=== PATIENT | female | born 1975 | race Caucasian/White ===

== ENCOUNTER 2024-05-10 11:26 | Inpatient (IN) | payer OTHER, SELFPAY ==
[2024-05-10] VITALS (98 sets, daily range): BP systolic 92–132; BP diastolic 51–77; PULSE 81–96; TEMP 36.5–37.1; O2SAT 92–100; BMI 36.6
--- NOTE | 2024-05-10 11:41 | ECG_ITS ---
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
--- NOTE | 2024-05-10 11:41 | XR_ITS ---
The [address] [address] Patient Name: SOBIA WILLIS MRN: [id number] date: 1975 Sex: F Assigned Patient Location: ER Current Patient Location: ER Accession/Order Number: [id number] Exam Date: 05/10/2024 12:37 Report Date: 05/10/2024 12:49 At the request of: ESTEBAN MARX Procedure: XR chest 1V EXAMINATION: XR chest 1V HISTORY: weak COMPARISON: XR chest 1117 FINDINGS: LUNGS: No significant pulmonary parenchymal abnormalities. VASCULATURE: No increased pulmonary vasculature. PLEURA: No pneumothorax, effusion, or pleural thickening. CARDIAC: No cardiomegaly or cardiac silhouette abnormality. MEDIASTINUM: No visible mass or adenopathy. BONES: No fracture or visible bone lesion. OTHER: Negative. XR/XR chest 1V IMPRESSION: 1. No acute cardiopulmonary process or suspicious findings. Electronically authenticated by: JOSEFINA WHITMAN Date: 05/10/2024 12:49
--- NOTE | 2024-05-10 11:42 | CT_ITS ---
[address] [address] Patient Name: SOBIA WILLIS MRN: [id number] date: 1975 Sex: F Assigned Patient Location: ER Current Patient Location: Accession/Order Number: [id number] Exam Date: 05/10/2024 12:30 Report Date: 05/10/2024 13:01 At the request of: ESTEBAN MARX Procedure: CT abdomen pelvis wo con EXAMINATION: CT abdomen pelvis wo con HISTORY: Jaundiced, abdominal distention COMPARISON: CT abdomen pelvis 01/03/2020 TECHNIQUE: Axial, Coronal, and Sagittal images were obtained without and/or with IV contrast as indicated by examination type. Dose reduction techniques were achieved by using automated exposure control and/or adjustment of mA and/or kV according to patient size and/or use of iterative reconstruction technique. FINDINGS: LUNG BASES: No visible pulmonary or pleural disease. LIVER: Heterogeneous subtle variation in density, predominantly involving the right lobe. Areas of nodular liver margins. Free fluid anterior, lateral, and along the undersurface of the liver. BILIARY: No dilatation or calcification. PANCREAS: No lesion, fluid collection, or abnormal duct dilatation. SPLEEN: Small amount of free fluid adjacent the spleen. No enlargement or focal lesion. ADRENALS: No mass or enlargement. KIDNEYS: No mass, obstruction, or calcification. BOWEL/MESENTERY: Numerous small diverticula involving the mid to distal colon. Slight wall thickening of hepatic flexure of the colon. No obstruction. Unremarkable stomach and small bowel. AORTA/VASCULAR: No aneurysm or dissection. RETROPERITONEUM: No mass or adenopathy. LYMPH NODES: No adenopathy. URINARY BLADDER: No visible focal wall thickening, lesion, or calculus. PELVIC ORGANS: No visible mass. Pelvic organs appropriate for patient age. ABDOMINAL WALL: Subcutaneous edema. No mass or hernia. BONES: No bony lesion or fracture. OTHER: Negative. CT/CT abdomen pelvis wo con IMPRESSION: 1. Moderate abdominal ascites of uncertain etiology. 2. Heterogeneous density of the liver predominantly involving the right hepatic lobe which is not well seen on today's noncontrast study. This may be secondary to cirrhotic changes. CT imaging of the liver without and with IV contrast is recommended for further evaluation (CT abdomen without and with IV contrast). 3. Colonic diverticulosis. Questionable mild wall thickening of the hepatic flexure of the colon; mild colitis versus secondary to adjacent fluid. Electronically authenticated by: JOSEFINA WHITMAN Date: 05/10/2024 13:01
--- NOTE | 2024-05-10 11:43 | ED_ITS ---
HPI HPI - General Adult General Chief complaint: Fall Stated complaint: WEAKNESS Time Seen by Provider: 05/10/24 11:41 Source: patient and medical record Mode of arrival: ambulance Limitations: no limitations History of Present Illness HPI narrative: 48-year-old female presents because she feels weak. She states she fell off the couch today because she was so weak and she did not hurt herself. She has noticed that her legs have become swollen and her abdomen bigger than typical and she states she noticed today that her skin was turning yellow. She lives with her and her adult son. She used to drink alcohol heavily, quit 4 years ago, none since. She also quit smoking 19 years ago. She has never had any liver issues. Related Data Home Medications ?Medication ?Instructions ?Recorded ?Confirmed No Known Home Medications 05/10/24 05/10/24 Allergies Allergy/AdvReac Type Severity Reaction Status Date / Time No Known Drug Allergies Allergy Verified 05/10/24 11:43 Opioid HPI Opioid Management Most Recent Opioid Data: No Data to Display Review of Systems ROS Narrative A ten point review of systems is negative except as noted above. PFSH PFSH Social History Little interest or pleasure in doing things: not at all Feeling down, depressed, or hopeless: not at all Exam Narrative Exam Narrative: Nurses note and vital signs reviewed and patient is not hypoxic. General: The patient appears in no acute respiratory distress Skin: Warm, dry, no pallor noted. There is no rash noted. Skin is quite jaundiced. Head: Normocephalic, atraumatic Eye: Sclera are anicteric Ears, Nose, Mouth, and Throat: oral mucosa is slightly dry. Nares patent. Cardiovascular: Regular Rate and Rhythm Respiratory: Patient is in no distress, no accessory muscle use, lungs are clear to auscultation, no wheezing, rales or rhonchi GI: Abdomen is distended with positive fluid wave Musculoskeletal: Bilateral lower extremity edema present, symmetric Neurological: Awake alert and oriented Psychiatric: Cooperative Constitutional Vital Signs, click to edit/add: Last Vital Signs Temp 98.3 F 05/10/24 14:30 Pulse 91 H 05/10/24 14:30 Resp 18 05/10/24 14:30 BP 121/60 05/10/24 14:30 Pulse Ox 99 05/10/24 13:50 O2 Del Method Room Air 05/10/24 11:34 Course Vital Signs Vital signs: Vital Signs Pulse Rate 85 05/10/24 11:31 Pulse Oximetry 99 05/10/24 11:31 Temperature 98.3 F 05/10/24 14:30 Pulse Rate 91 H 05/10/24 14:30 Respiratory Rate 18 05/10/24 14:30 Blood Pressure 121/60 05/10/24 14:30 Pulse Oximetry 99 05/10/24 13:50 Oxygen Delivery Method Room Air 05/10/24 11:34 Medical Decision Making MDM Narrative Medical decision making narrative: The patient presents with acute liver failure as well as anemia. No blood was found in her stool and blood transfusion is ordered. CAT scan is consistent with cirrhosis and ascites. I spoken to Dr. Mena and we have agreed that the patient will be transferred to tertiary care facility for appropriate care with gastroenterology and possibly sales service technician. I spoke to Dr. Burgess at [facility] and he recommends transfer to [facility] for evaluation for liver transplant. I have spoken to the hospitalist at the [facility] who has accepted the patient. She is hemodynamically stable and agreeable for transfer. Here she was transfused blood and given IV Protonix and IV vitamin K. Differential Diagnosis Differential Diagnosis: Liver failure, cirrhosis, hepatitis, renal failure, anemia, GI bleed Lab Data Lab results reviewed: Yes I reviewed the patient's lab results Labs: Lab Results 05/10/24 05/10/24 05/10/24 Range/Units 11:43 12:12 12:27 WBC 17.7 H (4.0-11.0) 10^3/uL RBC 1.46 L (4.20-5.40) 10^6/uL Hgb 5.7 L* (12.0-16.0) g/dL Hct 17.0 L* (36.0-48.0) % MCV 116.4 H (81.0-99.0) fL MCH 39.0 H (26.7-34.0) pg MCHC 33.5 (29.9-35.2) g/dL RDW 17.5 H (11.0-15.0) % Plt Count 183 (150-450) 10^3/uL MPV 11.1 (9.5-13.5) fL Neut % (Auto) 77.6 H (43.0-75.0) % Lymph % (Auto) 16.3 L (20.5-60.0) % [place] % (Auto) 4.0 (1.7-12.0) % Eos % (Auto) 0.2 L (0.9-7.0) % Baso % (Auto) 0.1 L (0.2-2.0) % Neut # (Auto) 13.7 H (1.4-6.5) 10^3/uL Lymph # (Auto) 2.9 (1.2-3.8) 10^3/uL [place] # (Auto) 0.7 (0.3-0.8) 10^3/uL Eos # (Auto) 0.0 (0.0-0.7) 10^3/uL Baso # (Auto) 0.0 (0.0-0.1) 10^3/uL Abs Immat Gran (auto) 0.32 H (0.00-0.03) 10^3/uL Imm/Tot Granulo (auto) 1.8 H (0.0-0.5) % PT 29.8 H (9.0-11.6) sec INR 3.15 APTT 21.8 L (22.3-36.2) sec Sodium 131 L (136-145) mmol/L Potassium 5.0 (3.5-5.1) mmol/L Chloride 88 L (98-107) mmol/L Carbon Dioxide 23.2 (21.0-32.0) mmol/L Anion Gap 24.8 BUN 92.0 H* (7.0-18.0) mg/dL Creatinine 2.48 H (0.55-1.02) mg/dL Est GFR ( Amer) 25 L (>=60) Est GFR (Non-Af Amer) 21 L (>=60) BUN/Creatinine Ratio 37.1 Glucose 103 (74-106) mg/dL Calcium 13.4 H* (8.5-10.1) mg/dL Total Bilirubin 20.5 H* (0.2-1.0) mg/dL Direct Bilirubin 15.7 H* (0.0-0.2) mg/dL AST 512 H* (15-37) U/L ALT 184 H (14-59) U/L Alkaline Phosphatase 189 H (46-116) U/L Ammonia (11-32) umol/L Troponin I High Sens 56.4 H* (4.0-51.3) pg/mL Total Protein 6.0 L (6.4-8.2) g/dL Albumin 2.5 L (3.4-5.0) g/dL Globulin 3.5 g/dL Albumin/Globulin Ratio 0.7 Amylase 43 (25-115) U/L Lipase 199.0 H (16.0-77.0) U/L Serum HCG, Qual Negative (NEGATIVE) Urine Color (YELLOW) Urine Clarity (CLEAR) Urine pH (5.0-9.0) Ur Specific [place] (1.005-1.025) Urine Protein (NEG/TRACE) mg/dL Urine Glucose (UA) (NEGATIVE) mg/dL Urine Ketones (NEGATIVE) mg/dL Urine Occult Blood (NEGATIVE) Urine Nitrite (NEGATIVE) Urine Bilirubin (NEGATIVE) Urine Urobilinogen (0.2-1.0) EU/dL Ur Leukocyte Esterase (NEGATIVE) Urine RBC (0-2) #/HPF Urine WBC (NONE SEEN) #/HPF Ur Squamous Epith Cells (NONE/RARE) #/LPF Ur Transition Epith Cell (NONE SEEN) #/LPF Urine Bacteria (NONE SEEN) #/HPF Urine Casts (NONE SEEN) #/LPF Hyaline Casts Urine Mucus (NONE SEEN) Ur Culture Indicated? Stool Occult Blood Negative Acetaminophen <2.0 L (10.0-30.0) ug/mL Ethanol Quant <3 mg/dL Blood Type A Negative Antibody Screen Negative Crossmatch See Detail 05/10/24 05/10/24 Range/Units 13:10 14:14 WBC (4.0-11.0) 10^3/uL RBC (4.20-5.40) 10^6/uL Hgb (12.0-16.0) g/dL Hct (36.0-48.0) % MCV (81.0-99.0) fL MCH (26.7-34.0) pg MCHC (29.9-35.2) g/dL RDW (11.0-15.0) % Plt Count (150-450) 10^3/uL MPV (9.5-13.5) fL Neut % (Auto) (43.0-75.0) % Lymph % (Auto) (20.5-60.0) % [place] % (Auto) (1.7-12.0) % Eos % (Auto) (0.9-7.0) % Baso % (Auto) (0.2-2.0) % Neut # (Auto) (1.4-6.5) 10^3/uL Lymph # (Auto) (1.2-3.8) 10^3/uL [place] # (Auto) (0.3-0.8) 10^3/uL Eos # (Auto) (0.0-0.7) 10^3/uL Baso # (Auto) (0.0-0.1) 10^3/uL Abs Immat Gran (auto) (0.00-0.03) 10^3/uL Imm/Tot Granulo (auto) (0.0-0.5) % PT (9.0-11.6) sec INR APTT (22.3-36.2) sec Sodium (136-145) mmol/L Potassium (3.5-5.1) mmol/L Chloride (98-107) mmol/L Carbon Dioxide (21.0-32.0) mmol/L Anion Gap BUN (7.0-18.0) mg/dL Creatinine (0.55-1.02) mg/dL Est GFR ( Amer) (>=60) Est GFR (Non-Af Amer) (>=60) BUN/Creatinine Ratio Glucose (74-106) mg/dL Calcium (8.5-10.1) mg/dL Total Bilirubin (0.2-1.0) mg/dL Direct Bilirubin (0.0-0.2) mg/dL AST (15-37) U/L ALT (14-59) U/L Alkaline Phosphatase (46-116) U/L Ammonia 20 (11-32) umol/L Troponin I High Sens (4.0-51.3) pg/mL Total Protein (6.4-8.2) g/dL Albumin (3.4-5.0) g/dL Globulin g/dL Albumin/Globulin Ratio Amylase (25-115) U/L Lipase (16.0-77.0) U/L Serum HCG, Qual (NEGATIVE) Urine Color Dk. orange (YELLOW) Urine Clarity Clear (CLEAR) Urine pH Color interference A (5.0-9.0) Ur Specific [place] 1.025 (1.005-1.025) Urine Protein Color interference A (NEG/TRACE) mg/dL Urine Glucose (UA) Color interference A (NEGATIVE) mg/dL Urine Ketones Color interference A (NEGATIVE) mg/dL Urine Occult Blood Color interference A (NEGATIVE) Urine Nitrite Color interference A (NEGATIVE) Urine Bilirubin Color interference A (NEGATIVE) Urine Urobilinogen Color interference A (0.2-1.0) EU/dL Ur Leukocyte Esterase Color interference A (NEGATIVE) Urine RBC 0-2 (0-2) #/HPF Urine WBC 10-20 A (NONE SEEN) #/HPF Ur Squamous Epith Cells Few A (NONE/RARE) #/LPF Ur Transition Epith Cell Few A (NONE SEEN) #/LPF Urine Bacteria Large A (NONE SEEN) #/HPF Urine Casts Seen A (NONE SEEN) #/LPF Hyaline Casts Rare Urine Mucus None seen (NONE SEEN) Ur Culture Indicated? Yes Stool Occult Blood Acetaminophen (10.0-30.0) ug/mL Ethanol Quant mg/dL Blood Type Antibody Screen Crossmatch Imaging Data CT scan - abdomen: Radiologist's impression: ITS Impressions Chest X-Ray 05/10/24 11:41 IMPRESSION: 1. No acute cardiopulmonary process or suspicious findings. Electronically authenticated by: JOSEFINA WHITMAN Date: 05/10/2024 12:49 Abdomen/Pelvis CT 05/10/24 11:42 IMPRESSION: 1. Moderate abdominal ascites of uncertain etiology. 2. Heterogeneous density of the liver predominantly involving the right hepatic lobe which is not well seen on today's noncontrast study. This may be secondary to cirrhotic changes. CT imaging of the liver without and with IV contrast is recommended for further evaluation (CT abdomen without and with IV contrast). 3. Colonic diverticulosis. Questionable mild wall thickening of the hepatic flexure of the colon; mild colitis versus secondary to adjacent fluid. Electronically authenticated by: JOSEFINA WHITMAN Date: 05/10/2024 13:01 ECG Data Attestation: I personally reviewed and interpreted this ECG as follows: (EKG on my interpretation shows normal sinus rhythm with a rate of 88 and no acute change.) Critical Care Time Critical Care Time Critical Care Time: Yes Total Critical Care Time: 95 Attestation: Due to the high probability of sudden and clinically significant deterioration in the patient's condition he/she required the highest level of my preparedness to intervene urgently I provided critical care time including documentation time, medication orders and management, reevaluation, vital sign assessment, ordering and reviewing of lab tests, ordering and reviewing of x-ray studies, and admission orders. Aggregate critical care time is 95 minutes including only time during which I was engaged in work directly related to his/her care and did not include time spent treating other patients simultaneously. Discharge Plan Discharge Chief Complaint: Fall Clinical Impression: Acute liver failure, Acute kidney injury, Anemia Patient Disposition: [facility] Time of Disposition Decision: 13:07 Discharge Location: [facility] Condition: Fair Mode of Transportation: EMS
[2024-05-10 12:06] LABS: Basophils Percent Auto 0.1 % (0.2-2.0); Eosinophils Percent Auto 0.2 % (0.9-7.0); Immature Granulocytes Abs Auto 0.32 10^3/uL (0.00-0.03); Immature Granulocytes Pct Auto 1.8 % (0.0-0.5); Lymphocytes Absolute Auto 2.9 10^3/uL (1.2-3.8); Lymphocytes Percent Auto 16.3 % (20.5-60.0); Mean Corpuscular HGB Conc 33.5 g/dL (29.9-35.2); Mean Corpuscular Volume 116.4 fL (81.0-99.0); Mean Platelet Volume 11.1 fL (9.5-13.5); Monocytes Absolute Auto 0.7 10^3/uL (0.3-0.8); Neutrophils Absolute Auto 13.7 10^3/uL (1.4-6.5); Neutrophils Percent Auto 77.6 % (43.0-75.0); Platelet Count 183 10^3/uL (150-450); Red Cell Distribution Width 17.5 % (11.0-15.0); White Blood Count 17.7 10^3/uL (4.0-11.0)
[2024-05-10 12:10] LABS: Hemoglobin 5.7 g/dL (12.0-16.0)
[2024-05-10 12:16] LABS: Red Blood Count 1.46 10^6/uL (4.20-5.40)
[2024-05-10 12:21] LABS: Alanine Aminotransferase 184 U/L (14-59); Albumin Globulin Ratio 0.7; Albumin Level 2.5 g/dL (3.4-5.0); Alkaline Phosphatase 189 U/L (46-116); Amylase 43 U/L (25-115); Globulin 3.5 g/dL; HCG Qualitative NEGATIVE (NEGATIVE); Internal Control Within Normal Limits
[2024-05-10 12:29] LABS: Anion Gap 24.8; BUN Creatinine Ratio 37.1; Carbon Dioxide 23.2 mmol/L (21.0-32.0); Chloride 88 mmol/L (98-107); Estimated GFR (African America 25 (>=60); Estimated GFR (Non-African Ame 21 (>=60); Glucose 103 mg/dL (74-106); Sodium 131 mmol/L (136-145)
[2024-05-10 12:30] LABS: Aspartate Amino Transferase 512 U/L (15-37); Bilirubin Direct 15.7 mg/dL (0.0-0.2); Bilirubin Total 20.5 mg/dL (0.2-1.0); Troponin I High Sensitivity 56.4 pg/mL (4.0-51.3)
[2024-05-10 12:31] LABS: Calcium 13.4 mg/dL (8.5-10.1)
[2024-05-10 12:32] LABS: INR 3.15; Partial Thromboplastin Time 21.8 sec (22.3-36.2); Prothrombin Time 29.8 sec (9.0-11.6)
[2024-05-10 12:37] LABS: Internal Control Within Normal Limits; Occult Blood Negative
[2024-05-10 13:26] LABS: Ammonia 20 umol/L (11-32)
[2024-05-10] MEDS: PHYTONADIONE (VIT K1) 5 MG in 0.9 % SODIUM CHLORIDE 50 ML 202 MG IV (13:48)
[2024-05-10 14:01] LABS: Ethanol <3 mg/dL
[2024-05-10 14:05] LABS: Acetaminophen <2.0 ug/mL (10.0-30.0)
[2024-05-10 14:25] LABS: Clarity Urine CLEAR (CLEAR); Color Urine DK. ORANGE (YELLOW); Specific Gravity Urine 1.025 (1.005-1.025)
[2024-05-10 14:29] LABS: Bilirubin Urine COLOR INTERFERENCE (NEGATIVE); Blood Urine COLOR INTERFERENCE (NEGATIVE); Glucose Urine UA COLOR INTERFERENCE mg/dL (NEGATIVE); Ketones Urine COLOR INTERFERENCE mg/dL (NEGATIVE); Protein Urine COLOR INTERFERENCE mg/dL (NEG/TRACE); pH Urine COLOR INTERFERENCE (5.0-9.0)
[2024-05-10 14:30] LABS: Leukocyte Esterase Urine COLOR INTERFERENCE (NEGATIVE); Nitrite Urine COLOR INTERFERENCE (NEGATIVE); Urobilinogen Urine COLOR INTERFERENCE EU/dL (0.2-1.0)
[2024-05-10] MEDS: PANTOPRAZOLE SODIUM 40 MG VIAL IV (14:33)
[2024-05-10 14:35] LABS: Bacteria Urine LARGE #/HPF (NONE SEEN); Mucus Urine NONE SEEN (NONE SEEN); RBC Urine 0-2 #/HPF (0-2); Squamous Epithelial Cell Urine FEW #/LPF (NONE/RARE); Transitional Epi Cells Urine FEW #/LPF (NONE SEEN)
[2024-05-10 14:36] LABS: Cast Seen? SEEN #/LPF (NONE SEEN); Hyaline Casts Urine RARE; Urine Culture Indicated YES
[2024-05-10 14:38] LABS: Amphetamine Screen Urine NEGATIVE (NEGATIVE); Benzodiazepines Screen Urine NEGATIVE (NEGATIVE); Cannabinoid Screen Urine NEGATIVE (NEGATIVE); Cocaine Screen Urine NEGATIVE (NEGATIVE); Methamphetamines Screen Urine NEGATIVE (NEGATIVE); Opiate Screen Urine NEGATIVE (NEGATIVE); Phencyclidine Screen Urine NEGATIVE (NEGATIVE)
[2024-05-10 14:39] LABS: Barbiturates Screen Urine NEGATIVE (NEGATIVE); Buprenorphine Screen Urine NEGATIVE (NEGATIVE); Methadone Screen Urine NEGATIVE (NEGATIVE); Oxycodone Screen Urine NEGATIVE (NEGATIVE); Tricyclic Antidepressant Urine NEGATIVE (NEGATIVE)
[2024-05-10] MEDS: MORPHINE SULFATE 4 MG/ML VIAL IV (18:53)
[2024-05-11] VITALS (18 sets, daily range): BP systolic 88–109; BP diastolic 46–66; PULSE 87–97; TEMP 36.9–37; O2SAT 95–97
[2024-05-11] MEDS: LACTULOSE 10 GM/15 ML (237ML) SOLUTION 20 GM PO (05:53)
[2024-05-11 06:09] LABS: HBsAg Screen Negative (Negative); HCV Ab Non Reactive (Non Reactive); Hep A Ab, IgM Negative (Negative); Hep B Core Ab, IgM Negative (Negative)
[2024-05-11 06:13] LABS: Basophils Percent Auto 0.2 % (0.2-2.0); Eosinophils Absolute Auto 0.1 10^3/uL (0.0-0.7); Eosinophils Percent Auto 0.3 % (0.9-7.0); Immature Granulocytes Abs Auto 0.35 10^3/uL (0.00-0.03); Lymphocytes Percent Auto 17.6 % (20.5-60.0); Mean Corpuscular HGB Conc 33.7 g/dL (29.9-35.2); Mean Corpuscular Hemoglobin 34.7 pg (26.7-34.0); Mean Platelet Volume 10.7 fL (9.5-13.5); Monocytes Absolute Auto 0.8 10^3/uL (0.3-0.8); Monocytes Percent Auto 4.7 % (1.7-12.0); Neutrophils Absolute Auto 12.9 10^3/uL (1.4-6.5); Neutrophils Percent Auto 75.2 % (43.0-75.0); Platelet Count 155 10^3/uL (150-450); Red Blood Count 1.99 10^6/uL (4.20-5.40); White Blood Count 17.2 10^3/uL (4.0-11.0)
[2024-05-11 06:23] LABS: Hematocrit 20.5 % (36.0-48.0); Hemoglobin 6.9 g/dL (12.0-16.0)
[2024-05-11 06:28] LABS: INR 2.19; Partial Thromboplastin Time 28.6 sec (22.3-36.2); Prothrombin Time 21.5 sec (9.0-11.6)
[2024-05-11 06:40] LABS: Alanine Aminotransferase 197 U/L (14-59); Albumin Globulin Ratio 0.6; Albumin Level 2.2 g/dL (3.4-5.0); Alkaline Phosphatase 170 U/L (46-116); Anion Gap 17.8; Aspartate Amino Transferase 482 U/L (15-37); BUN Creatinine Ratio 39.5; Calcium 12.2 mg/dL (8.5-10.1); Carbon Dioxide 30.3 mmol/L (21.0-32.0); Chloride 87 mmol/L (98-107); Estimated GFR (African America 25 (>=60); Estimated GFR (Non-African Ame 20 (>=60); Globulin 3.4 g/dL; Glucose 97 mg/dL (74-106); Potassium 5.1 mmol/L (3.5-5.1); Sodium 130 mmol/L (136-145); Total Protein 5.6 g/dL (6.4-8.2)
[2024-05-11 06:45] LABS: Bilirubin Total 21.2 mg/dL (0.2-1.0)
--- NOTE | 2024-05-11 08:57 | P.HP_ITS ---
HPI H&P: HPI History of Present Illness Chief complaint: WEAKNESS Acute Liver Failure LEAH Anemia Narrative: HPI and Hospital Course: 48 y o female with no prior medical hx of liver disease brought in for generalized weakness, yellowish skin discoloration, altered mental status, decreased consciousness x 1-2 days. Patient was confused, lethargic and unable to provide any information. Patient denied pain anywhere and appeared comfortable. Her was present bedside, who informed me that most of the household members had fevers/respiratory symptoms a week prior including the patient herself. reports that he has seen her using Tylenol quite often but can't say for sure how much she used in past few days. was not a very good historian and was unable to provide much information and reports that she was fine a day before and that she was swollen up or yellow for a few days and it all started yesterday. Denies excessive alcohol use by patient. Patient presented to ED last night. Work up consistent with hyperacute liver failure, hepatic encephalopathy, LEAH sec to hepatorenal syndrome, leukocytosis, anemia and coagulopathy. She received 2 units PRBC overnight upon arrival and then another unit of PRBC was ordered in the morning for Hb of 6.9. Patient is drowsy/confused. Wakes up to stimulus but goes right back to sleep. Appears comfortable. She was accepted for transfer to [facility] but had to be admitted to ICU as there was a delay in transfer. Opioid HPI Opioid Management Most Recent Pain and Opioid Data: Last Pain Scale 3 05/11/24 07:00 Last Pain Assessment 05/11/24 08:00 Last MAR Pain Assessment 05/10/24 18:53 Last ORT Total Score 3 05/10/24 23:49 Last ORT Risk Category Low Risk 05/10/24 23:49 Ur Phencyclidine Scrn Negative (NEGATIVE) 05/10/24 14:14 Review of Systems ROS Status of ROS 10 or more systems reviewed and unremark able except as noted in history and below [facility] Social History (Updated 05/11/24 @ 09:11 by Shaikh Rajesh MD) Within the past year, how often did you have a drink containing alcohol: monthly or less Within the past year, how many standard drinks containing alcohol did you have on a typical day: 1 or 2 Within the past year, how often did you have six or more drinks on one occasion: never Total score: 0 Score interpretation: A score less than 3 is consistent with normal alcohol consumption. Smoking status: Former smoker Non-prescribed substance use: denies use Highest level of school completed/degree received: don't know Little interest or pleasure in doing things: not at all Feeling down, depressed, or hopeless: not at all Meds Home Medications and Allergies Home Medications ?Medication ?Instructions ?Recorded ?Confirmed ?Type No Known Home Medications 05/10/24 05/10/24 History Allergies Allergy/AdvReac Type Severity Reaction Status Date / Time No Known Drug Allergies Allergy Verified 05/10/24 11:43 Exam Constitutional Vital Signs, click to edit/add: Last Vital Signs Temp 98.6 F 05/11/24 08:42 Pulse 89 05/11/24 08:42 Resp 20 05/11/24 08:42 BP 106/50 05/11/24 08:42 Pulse Ox 96 05/11/24 08:42 O2 Del Method Nasal Cannula 05/11/24 08:42 O2 Flow Rate 2 05/11/24 08:42 Exam limitations: altered mental status General appearance: comfortable, lethargic and ill appearing [facility] Common normals: normocephalic and head/scalp atraumatic Respiratory Common normals: normal respiratory effort and no use of accessory muscles Effort & inspection: decreased respiratory effort Auscultation: diminished lung sounds Cardio Common normals: regular rate, regular rhythm, S1 normal heart sound and S2 normal heart sound GI Common normals: soft to palpation, non-tender and no hepatosplenomegaly Inspection: abdominal distension Palpation: ascites present Extremity Common normals: full ROM Other: +3 LE edema Neuro [place] Coma Scale: document GCS findings [place] coma scale eye opening: Spontaneous [place] coma scale verbal response: Confused [place] coma scale motor response: Localising Prasanth coma scale total score: 13 Common normals: moves all extremities and no focal motor deficits Sensorium/orientation: somnolent Speech: abnormal speech Gait (neuro): unable to assess gait Psych Attitude: calm Speech: incoherent Thought process: confused Results Labs Labs: Short CBC 05/10/24 05/11/24 Range/Units 11:43 05:51 WBC 17.7 H 17.2 H (4.0-11.0) 10^3/uL Hgb 5.7 L* 6.9 L* (12.0-16.0) g/dL Hct 17.0 L* 20.5 L* (36.0-48.0) % Plt Count 183 155 (150-450) 10^3/uL BMP 05/10/24 05/11/24 11:43 05:51 Sodium 131 L 130 L Potassium 5.0 5.1 Chloride 88 L 87 L Carbon Dioxide 23.2 30.3 BUN 92.0 H* 100.0 H* Creatinine 2.48 H 2.53 H Glucose 103 97 Calcium 13.4 H* 12.2 H Liver Function 05/10/24 05/11/24 Range/Units 11:43 05:51 Total Bilirubin 20.5 H* 21.2 H* (0.2-1.0) mg/dL Direct Bilirubin 15.7 H* (0.0-0.2) mg/dL AST 512 H* 482 H (15-37) U/L ALT 184 H 197 H (14-59) U/L Alkaline Phosphatase 189 H 170 H (46-116) U/L Albumin 2.5 L 2.2 L (3.4-5.0) g/dL Urine 05/10/24 Range/Units 14:14 Urine Color Dk. orange (YELLOW) Urine Clarity Clear (CLEAR) Urine pH Color interference A (5.0-9.0) Ur Specific [place] 1.025 (1.005-1.025) Urine Protein Color interference A (NEG/TRACE) mg/dL Urine Glucose (UA) Color interference A (NEGATIVE) mg/dL Assessment and Plan Assessment and Plan (1) Acute liver failure: Assessment and Plan: Hyperacute Liver failure. Unclear etiology. Negative hepatitis Panel. Given that her liver failure was preceded by fever/respiratory symptoms, this could be sec to viral respiratory illness Patient currently afebrile, has no resp symptoms Could be due to chronic excessive tylenol ingestion. Tylenol levels are normal. Will start patient empirically on NAC. Qualifiers: Hepatic coma status: with hepatic coma Qualified Code(s): K72.01 - Acute and subacute hepatic failure with coma (2) Hepatorenal syndrome: Assessment and Plan: Normal renal function at baseline as far as we can tell. Presented with generalized anasarca, cr of 2.5 Started on Lasix 40 q12, Added midodrine, ordered octreotide 100 mg x 1 (3) Acute hepatic encephalopathy: Assessment and Plan: Grade 2 hepatic encephalopathy. Started on lactulose, empirical abx - rocephin. (4) Coagulopathy: Assessment and Plan: Received Vit K IV overnight. Due to acute liver failure. (5) Anemia: Assessment and Plan: no evidence of active bleeding. P/w Hb of 5.7 - received 2 units, Hb 6.9 this am, ordered another unit PRBC. Qualifiers: Anemia type: unspecified type Qualified Code(s): D64.9 - Anemia, unspecified (6) Leukocytosis: Assessment and Plan: no underlying infection identified. could be reactive. Possible colitis on CT but low suspicion. However, she was started on rocephin/flagyl for it. Qualifiers: Leukocytosis type: leukemoid reaction Qualified Code(s): D72.823 - Leukemoid reaction (7) Anasarca: Assessment and Plan: Started on IV lasix, midodrine and octerotide. (8) Elevated troponin: Assessment and Plan: No prior hx of CAD. Troponin elevated upon arrival. Likely due to anemia/LEAH Most likely T2 Demand ischemia Given her acute liver failure, she can't receive anticoagulation. Monitor for now. Plan Patient critically ill with multiorgan failure including Liver/Kidneys along with hepatic encephalopathy/altered mental status. She was accepted for transfer to [facility] but had to be admitted due to delay in transfer. Patient has poor prognosis, high risk of clinical worsening, including . Critical time > 40 minutes spent on patients evaluation, co ordination of care, obtain information from family, formulation of treatment plan. Urinary Catheter Management Urinary Catheter Management Urethral: Cath placed during this visit: yes Urethral indwelling: Yes Reason for continuing: ICU pt on diuretics Insertion date: 05/10/24 Insertion time: 14:21
[2024-05-11] MEDS: DEXTROSE 5% IV (10:23)
[2024-05-11] MEDS: WATER IV (10:23)
[2024-05-11] MEDS: ACETYLCYSTEINE IV (10:23)
[2024-05-11] MEDS: FUROSEMIDE 40 MG/4 ML VIAL IVP (10:25)
[2024-05-11] MEDS: OCTREOTIDE ACETATE 100 MCG/ML VIAL SUBQ (10:31)
[2024-05-11 10:58] LABS: Acetaminophen <2.0 ug/mL (10.0-30.0)
--- NOTE | 2024-05-11 11:41 | PC.NURSE ---
Nursing note from 0700 to time of discharge at 1044: 0747-Dr. Mena updated on patient, ok to give sips of water. 0811-Dr. Mena updated on transportation. RN notified at 0819 that patient does need to be transported with a front desk monitor. 0822-Spoke with Dion at the [facility] transportation team, update given to Dion. RN notified that transport will be on the way. 0837-Dr. Mena at bedside. 0845-PRBC intitiated with Advertising Sales Consultant as second person verifying. 1015-Dayanara Negrete from the [facility] given report on patient. 1044-Patient left with the [facility] team. Family at bedside and states they will update of patient. 1049-Justin OBANDO at [facility] given report on patient. 1104- attempted to be notified of patient leaving. Unable to reach at this time.
--- OUTSIDE RECORDS SUMMARY | 2024-05-13 07:06 | XMS_ITS | CCD ---
Author Organization [facility] Care Team Providers Care Scientific Research Manager Name Role Phone PHYSICIAN, DEFAULT Unavailable Unavailable PHYSICIAN, DEFAULT Unavailable Unavailable VESTA BONILLA Unavailable Unavailable VESTA BONILLA Unavailable Unavailable SELF, REFERRED Unavailable Unavailable SELF, REFERRED Unavailable Unavailable [facility] Primary Care Unavailable QING GUNTER Admitting Unavailable QING GUNTER Attending Unavailable QING GUNTER Consulting Unavailable BJ WILBURN Consulting Unavailable STEPHEN, SHANTANU Tomas Consulting Unavailable KIRFIDEL, FREDDY Consulting Unavailable [facility] Primary Care Unavailable LESTER, EUGENIA Admitting Unavailable EUGENIA BATISTA Attending Unavailable SHANTANU MITCHELL V Consulting Unavailable LESTER, EUGENIA Consulting Unavailable KIRSCHBETTE, FREDDY Consulting Unavailable [facility] Primary Care Unavailable PAY, ANGEL Admitting Unavailable PAY, ANGEL Attending Unavailable PAY, ANGEL Consulting Unavailable MAITE MENA Consulting Unavailable Unavailable Primary Care Provider UnavailCYNTHIA Quach Attending Unavailable ANGEL MARX Referring Unavailable HATIPOGLU, ANNE-MARIE Admitting Unavailable Problems Active Problems Problem Classification Problem Date Documented Date Episodic/Chronic Acute and unspecified renal failure (1 source) Acute renal failure syndrome; Translations: [Acute kidney failure, unspecified] Onset: 05-11-20 24 05-11-2024 Episodic Alcohol-related disorders (3 sources) Alcoholic cirrhosis; Translations: [Alcoholic cirrhosis of liver without ascites] Onset: 05-11-20 24 05-11-2024 Chronic Congestive heart failure; nonhypertensive (2 sources) Acute combined systolic (congestive) and diastolic (congestive) heart failure; Translations: [Chronic combined systolic (congestive) and diastolic (congestive) heart failure] Onset: 02-05-20 Chronic Diabetes mellitus without complication (1 source) Type 2 diabetes mellitus without complications; Translations: [TYPE 2 DM WITHOUT COMPLICATIONS] Onset: 01-08-20 Chronic Disorders of lipid metabolism (1 source) Pure hypercholesterolemia, unspecified; Translations: [PURE HYPERCHOLESTEROLEMIA UNSPEC] Onset: 02-05-20 Essential hypertension (1 source) Essential (primary) hypertension; Translations: [ESSENTIAL PRIMARY HYPERTENSION] Onset: 05-14-20 Chronic Fluid and electrolyte disorders (1 source) Hypokalemia; Translations: [HYPOKALEMIA] Onset: 01-08-20 Episodic Hepatitis (1 source) Nonalcoholic steatohepatitis ([place]); Translations: [NONALCOHOLIC STEATOHEPATITIS] Onset: 01-08-20 Chronic Hypertension with complications and secondary hypertension (2 sources) Hypertensive heart disease with heart failure; Translations: [HTN HEART DISEASE W/HEART FAIL] Onset: 02-05-20 Chronic Other aftercare (1 source) MCC (current) use of insulin; Translations: [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 CURRENT USE OF INSULIN] Onset: 01-08-20 Episodic Other gastrointestinal disorders (1 source) Irritable bowel syndrome without diarrhea; Translations: [IRRITABLE BOWEL SYND W/O DIARRHEA] Onset: 02-05-20 Chronic Other liver diseases (1 source) Hepatic encephalopathy; Translations: [Hepatic encephalopathy] Onset: 05-11-2005-11-2024 Episodic Other nervous system disorders (1 source) Disorder of brain; Translations: [Encephalopathy, unspecified] Onset: 05-11-2005-11-2024 Chronic Other nervous system disorders (1 source) Paresthesia of skin; Translations: [PARESTHESIA OF SKIN] Onset: 01-08-20 Episodic Other nutritional; endocrine; and metabolic disorders (1 source) Body mass index (BMI) 40.0-44.9, adult; Translations: [BODY MASS INDEX BMI 40.0-44.9 ADULT] Onset: 02-05-20 Chronic Other nutritional; endocrine; and metabolic disorders (1 source) Morbid (severe) obesity due to excess calories; Translations: [MORBID SEVERE OBES D/T EXCESS ROSS] Onset: 02-05-20 Chronic Other screening for suspected conditions (not mental disorders or infectious disease) (4 sources) Other specified abnormal findings of blood chemistry; Translations: [OTH SPEC ABNORMAL FINDINGS BLD CHEM] Onset: 01-03-20 Episodic Screening and history of mental health and substance abuse codes (1 source) Personal history of nicotine dependence; Translations: [PERSONAL HISTORY OF NICOTINE DEPEND] Onset: 05-27-20 20 Episodic Thyroid disorders (1 source) Hypothyroidism, unspecified; Translations: [HYPOTHYROIDISM UNSPECIFIED] Onset: 01-08-20 20 Chronic Unclassified (2 sources) Unknown / UNK(Unknown) Onset: 05-10-20 17 Past or Other Problems Problem Classification Problem Date Documented Date Episodic/Chronic Abdominal pain (3 sources) Unspecified abdominal pain; Translations: [UNSPECIFIED ABDOMINAL PAIN] Onset: 05-11-2019 Episodic Deficiency and other anemia (1 source) Nutritional anemia, unspecified; Translations: [NUTRITIONAL ANEMIA UNSPECIFIED] Onset: 02-04-2019 Episodic Nausea and vomiting (1 source) Nausea with vomiting, unspecified; Translations: [NAUSEA WITH VOMITING UNSPECIFIED] Onset: 05-14-2019 Episodic Nonspecific chest pain (1 source) Chest pain, unspecified; Translations: [CHEST PAIN UNSPECIFIED] Onset: 02-04-2019 Episodic Other aftercare (1 source) 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; Translations: [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 CURRENT USE OF ASPIRIN] Onset: 05-14-2019 Episodic Other aftercare (1 source) Other usp (current) drug therapy; Translations: [OTH HALF-WAY CURRENT DRUG THERAPY] Onset: 02-04-2019 Episodic Other diseases of kidney and ureters (1 source) Hydronephrosis with renal and ureteral calculous obstruction; Translations: [HYDRONPHROS RENL AND URETRL CALCUL OBST] Onset: 05-14-2019 Episodic Other liver diseases (5 sources) Abnormal levels of other serum enzymes; Translations: [ABNORMAL LEVELS OF OTHER SERUM ENZYMES] Onset: 05-10-2017 Episodic Other lower respiratory disease (3 sources) Dyspnea, unspecified; Translations: [DYSPNEA UNSPECIFIED] Onset: 01-24-2019 Episodic Results Test Name Value Interpretation Reference Range Facility Basic metabolic 2000 panelon 05-12-2024 Anion gap [Moles/Vol] 21 mmol/L High 8-15 [facility] Comment on above: Order Comment: Speci men Type: VENOUS BLOOD SPECIMEN Ordering Facility: [facility] Address: [address] [place] [address] Performed By: #### 2 4344-4 #### [facility] CLIA [id number] [address] [place] [address] [id number], [place] [address] [place] Calcium [Mass/Vol] 10.5 mg/dL High 8.5-10.2 [facility] Comment on above: Order Comment: Speci men Type: VENOUS BLOOD SPECIMEN Ordering Facility: [facility] Address: [address] [place] [address] Performed By: #### 2 4344-4 #### [facility] CLIA [id number] [address] [place] [address] [place] Chloride [Moles/Vol] 86 mmol/L Low 98-107 [facility] Comment on above: Order Comment: Speci men Type: VENOUS BLOOD SPECIMEN Ordering Facility: [facility] Address: [address] [place] [address] Performed By: #### 2 4344-4 #### [facility] CLIA [id number] [address] [place] [address] [place] CO2 [Moles/Vol] 26 mmol/L Normal 22-30 [facility] Comment on above: Order Comment: Speci men Type: VENOUS BLOOD SPECIMEN Ordering Facility: [facility] Address: [address] [place] [address] Performed By: #### 2 4344-4 #### [facility] CLIA [id number] [address] [place] [address] [place] Creatinine [Mass/Vol] 1.41 mg/dL High 0.58-0.96 [facility] Comment on above: Order Comment: Speci men Type: VENOUS BLOOD SPECIMEN Ordering Facility: [facility] Address: [address] [place] [address] Result Comment: Resu lt may be falsely decreased due to interference from icterus. Performed By: #### 2 4344-4 #### [facility] CLIA [id number] [address] [place] [address] [place] Creatinine and Glomerular filtration rate.predicted panel (S/P/Bld) 46 mL/min/1.73m??? Low >=60 [facility] Comment on above: Order Comment: Kofi wright Type: VENOUS BLOOD SPECIMEN Ordering Facility: [facility] Address: [address] [place] [address] Result Comment: Destinee mated Glomerular Filtration Rate (eGFR) is calculated using the 2020 CKD-EPI creatinine equation. This equation utilizes serum creatinine, sex, and age as parameters. The creatinine assay has traceable calibration to isotope dilution-mass spectrometry. Refer to KDIGO guidelines for clinical interpretation. In patients with unstable renal function, e.g. those with acute kidney injury, the eGFR may not accurately reflect actual GFR. Performed By: #### 2 4344-4 #### [facility] CLIA [id number] [address] [place] [address] [place] Glucose [Mass/Vol] 153 mg/dL High 74-99 [facility] Comment on above: Order Comment: Kofi wright Type: VENOUS BLOOD SPECIMEN Ordering Facility: [facility] Address: [address] [place] [address] Result Comment: The [place] Diabetes Association (ADA) provides guidance for cutoff values for fasting glucose and random glucose. The ADA defines fasting as no caloric intake for at least 8 hours. Fasting plasma glucose results between 100 to 125 mg/dL indicate increased risk for diabetes (prediabetes). Fasting plasma glucose results greater than or equal to 126 mg/dL meet the criteria for diagnosis of diabetes. In the absence of unequivocal hyperglycemia, results should be confirmed by repeat testing. In a patient with classic symptoms of hyperglycemia or hyperglycemic crisis, random plasma glucose results greater than or equal to 200 mg/dL meet the criteria for diagnosis of diabetes. Reference: Standards of Medical Care in Diabetes 2016, [place] [employer]. Diabetes Care. 2016.39(Suppl 1). Performed By: #### 2 4344-4 #### [facility] CLIA [id number] [address] [place] [address] [place] Sodium [Moles/Vol] 133 mmol/L Low 136-144 [facility] Comment on above: Order Comment: Kofi wright Type: VENOUS BLOOD SPECIMEN Ordering Facility: [facility] Address: [address] [place] [address] Performed By: #### 2 4344-4 #### [facility] CLIA [id number] [address] [place] [address] [place] Urea nitrogen [Mass/Vol] 87 mg/dL High 7-21 [facility] Comment on above: Order Comment: Speci men Type: VENOUS BLOOD SPECIMEN Ordering Facility: [facility] Address: [address] [place] [address] Performed By: #### 2 4344-4 #### [facility] CLIA [id number] [address] [place] [address] [place] CBC panel Auto (Bld)on 05-12 Erythrocyte distribution width (RBC) [Ratio] 19.4 % High 11.5-15.0 [facility] Comment on above: Order Comment: Speci men Type: VENOUS BLOOD SPECIMEN Ordering Facility: [facility] Address: [address] [place] [address] Performed By: #### 2 4344-4 #### [facility] CLIA [id number] [address] [place] [address] [place] Hematocrit (Bld) [Volume fraction] 23.7 % Low 36.0-46.0 [facility] Comment on above: Order Comment: Speci men Type: VENOUS BLOOD SPECIMEN Ordering Facility: [facility] Address: [address] [place] [address] Performed By: #### 2 4344-4 #### [facility] CLIA [id number] [address] [place], [place] [address] [place] Hemoglobin (Bld) [Mass/Vol] 8.1 g/dL Low 11.5-15.5 [facility] Comment on above: Order Comment: Speci men Type: VENOUS BLOOD SPECIMEN Ordering Facility: [facility] Address: [address] [place] [address] Performed By: #### 2 4344-4 #### [facility] CLIA [id number] [address] [place] [address] [place] MCH (RBC) [Entitic mass] 33.9 pg Normal 26.0-34.0 [facility] Comment on above: Order Comment: Speci men Type: VENOUS BLOOD SPECIMEN Ordering Facility: [facility] Address: [address] [place] [address] Performed By: #### 2 4344-4 #### [facility] CLIA [id number] [address] [place] [address] [place] MCHC (RBC) [Mass/Vol] 34.2 g/dL Normal 30.5-36.0 [facility] Comment on above: Order Comment: Speci men Type: VENOUS BLOOD SPECIMEN Ordering Facility: [facility] Address: [address] [place] [address] Performed By: #### 2 4344-4 #### [facility] CLIA [id number] [address] [place] [address] [place] MCV (RBC) [Entitic vol] 99.2 fL Normal 80.0-100.0 [facility] Comment on above: Order Comment: Speci men Type: VENOUS BLOOD SPECIMEN Ordering Facility: [facility] Address: [address] [place] [address] Performed By: #### 2 4344-4 #### [facility] CLIA [id number] [address] [place] [address] [place] Nucleated RBC (Bld) [#/Vol] 0.12 10*3/uL High <0.01 [facility] Comment on above: Order Comment: Speci men Type: VENOUS BLOOD SPECIMEN Ordering Facility: [facility] Address: [address] [place] [address] Performed By: #### 2 4344-4 #### [facility] CLIA [id number] [address] [place] [address] [place] Platelet mean volume (Bld) [Entitic vol] 11.4 fL Normal 9.0-12.7 [facility] Comment on above: Order Comment: Speci men Type: VENOUS BLOOD SPECIMEN Ordering Facility: [facility] Address: [address] [place] [address] Performed By: #### 2 4344-4 #### [facility] CLIA [id number] [address] [place] [address] [place] Platelets (Bld) [#/Vol] 86 10*3/uL Low 150-400 [facility] Comment on above: Order Comment: Speci men Type: VENOUS BLOOD SPECIMEN Ordering Facility: [facility] Address: [address] [place] [address] Result Comment: No c lot detected. Performed By: #### 2 4344-4 #### [facility] CLIA [id number] [address] [place] [address] [place] RBC (Bld) [#/Vol] 2.39 10*6/uL Low 3.90-5.20 [facility] Comment on above: Order Comment: Speci men Type: VENOUS BLOOD SPECIMEN Ordering Facility: [facility] Address: [address] [place] [address] Performed By: #### 2 4344-4 #### [facility] CLIA [id number] [address] [place] [address] [place] WBC (Bld) [#/Vol] 11.77 10*3/uL High 3.70-11.00 [facility] Comment on above: Order Comment: Speci men Type: VENOUS BLOOD SPECIMEN Ordering Facility: [facility] Address: [address] [place] [address] Performed By: #### 2 4344-4 #### [facility] CLIA [id number] [address] [place] [address] [place] Erythrocyte distribution width (RBC) [Ratio] 20.1 % High 11.5-15.0 [facility] Comment on above: Order Comment: Speci men Type: BLOOD SPECIMENOrdering Facility: [facility] Address: [address] [place] [address] Performed By: #### 5 8410-2 ####[facility] [id number] [place] [address] [place] Hematocrit (Bld) [Volume fraction] 23.5 % Low 36.0-46.0 [facility] Comment on above: Order Comment: Speci men Type: BLOOD SPECIMENOrdering Facility: [facility] Address: [address] [place] [address] Performed By: #### 5 8410-2 ####[facility] [id number] [place] [address] [place] Hemoglobin (Bld) [Mass/Vol] 8.1 g/dL Low 11.5-15.5 [facility] Comment on above: Order Comment: Speci men Type: BLOOD SPECIMENOrdering Facility: [facility] Address: [address] [place] [address] Performed By: #### 5 8410-2 ####[facility] [id number] [place] [address] [place] MCH (RBC) [Entitic mass] 34.3 pg High 26.0-34.0 [facility] Comment on above: Order Comment: Speci men Type: BLOOD SPECIMENOrdering Facility: [facility] Address: [address] [place] [address] Performed By: #### 5 8410-2 ####[facility] [id number] [place] [address] [place] MCHC (RBC) [Mass/Vol] 34.5 g/dL Normal 30.5-36.0 [facility] Comment on above: Order Comment: Speci men Type: BLOOD SPECIMENOrdering Facility: [facility] Address: [address] [place] [address] Performed By: #### 5 8410-2 ####[facility] [id number] [place] [address] [place] MCV (RBC) [Entitic vol] 99.6 fL Normal 80.0-100.0 [facility] Comment on above: Order Comment: Speci men Type: BLOOD SPECIMENOrdering Facility: [facility] Address: [address] [place] [address] Performed By: #### 5 8410-2 ####[facility] [id number] [place] [address] [place] Nucleated RBC (Bld) [#/Vol] 0.13 10*3/uL High <0.01 [facility] Comment on above: Order Comment: Speci men Type: BLOOD SPECIMENOrdering Facility: [facility] Address: [address] [place] [address] Performed By: #### 5 8410-2 ####[facility] [id number] [place] [address] [place] Platelet mean volume (Bld) [Entitic vol] 10.6 fL Normal 9.0-12.7 [facility] Comment on above: Order Comment: Speci men Type: BLOOD SPECIMENOrdering Facility: [facility] Address: [address] [place] [address] Performed By: #### 5 8410-2 ####[facility] [id number] [place] [address] [place] Platelets (Bld) [#/Vol] 114 10*3/uL Low 150-400 [facility] Comment on above: Order Comment: Speci men Type: BLOOD SPECIMENOrdering Facility: [facility] Address: [address] [place] [address] Performed By: #### 5 8410-2 ####[facility] [id number] [place] [address] [place] RBC (Bld) [#/Vol] 2.36 10*6/uL Low 3.90-5.20 [facility] Comment on above: Order Comment: Speci men Type: BLOOD SPECIMENOrdering Facility: [facility] Address: [address] [place] [address] Performed By: #### 5 8410-2 ####[facility] [id number] [place] [id number] [place] WBC (Bld) [#/Vol] 13.34 10*3/uL High 3.70-11.00 [facility] Comment on above: Order Comment: Speci men Type: BLOOD SPECIMENOrdering Facility: [facility] Address: [address] [place] [address] Performed By: #### 5 8410-2 ####[facility] [id number] [place] [id number] [place] CONSULTon 05-12-2024 CONSULT HNO ID: [id number] Author: VIKTORIYA PEREIRA MD Service: Gastroenterology Author Type: Fellow Type: Consults Filed: 05/12/2024 10:53 Note Text: Gastroenterology Consult Service Initial Consult Note Department of Gastroenterology AND Hepatology Digestive [facility] Date of Service: May 12, 2024 Patient: Cielo Mcfarlane Medical Record: [id number] Impression: Cielo Mcfarlane is a 48 year old woman with limited available past medical history (reported HTN, Type II DM, HLD) who was transferred from an outside hospital in the context of an unwitnessed fall at home, with evidence of acute on chronic liver failure. GI consulted for anemia. There are no signs of overt GI bleeding; so it is less likely to be variceal in nature. In the setting of her cirrhosis, would also consider GAVE vs gastric varices, so I agree with the hepatology team recommendations of obtaining an EGD while inpatient. Recommendations: -Plan for EGD tomorrow, consent in chart. -Will plan on conscious sedation unless her respiratory status deteriorates, ICU team aware - Clear liquid diet the day before procedure. - NPO the night before procedure. - Please maintain Hb > 7, INR < 1.5, Plt > 50k. - Please hold heparin gtt at least 6 hours prior to procedure if this is started. - Please ensure adequate IV access with 2 large bore IV's (18 gauge or greater). Viktoriya Pereira MD Gastroenterology and Hepatology Fellow, PGY IV Discussed with staff. History of Present Illness: Cielo Mcfarlane is a 48 year old woman with limited past medical history who was transferred from an outside hospital in the context of an unwitnessed fall at home, with evidence of acute on chronic liver failure. GI consulted for anemia. Patient was seen by my colleague in hepatology yesterday. Records are extremely limited at time of authorship but per patient , she (and their children) had a respiratory viral infection this week with progressive jaundice during that time as well as fatigue and degree of confusion. She experienced an unwitnessed fall two days ago at which time EMS was called and patient was brought to a local ED. On arrival, patient was HDS with CBC showing leukocytosis of 17, hgb 5.7, INR 3.1, Cr 2.48 (unclear baseline) with BUN 92 and K 5.0. LFT's notable for AST/ALT 512/184 with T bili 20.5 (mostly direct); negative tylenol, ethanol level, and units tox. CT A/P performed with possible cirrhotic changes (report only available, no images). She was noted to be encephalopathic. She received 2 units pRBC as well as CTX, Vitamin K. She was transferred to [facility] for further management. On arrival here, pt was HDS. Labs notable for leukocytosis to 15.3, hgb 8.1, plt 146. Cr 1.98, T bili 19.0 with AST/ALT 362/169. Lactate 5.4. Patient was started on lactulose, 2 grams CTX, IV PPI BID. To note, patient has received a total of 5 units PRBCs. There are no signs of overt GI bleeding Hb trend: 05/11: 8.1, then 6.7, then 8.1 this morning Last EGD per report in 2019 showing acute gastritis and no varices [facility]: diverticulosis Pertinent Review of Systems: Negative unless noted in HPI Past Medical History: No past medical history on file. Past Surgical History: No past surgical history on file. Family History: No family history on file. Allergies: ALLERGIES No Known Allergies Medications: Current Facility-Administered Medications Medication Dose Route Frequency potassium chloride 40 mEq oral powder (KLOR-CON) 40 mEq ORAL/FEEDING TUBE q 2 H PRN magnesium sulfate iv piggyback in sterile water 2 g 50 mL 2 g INTRAVENOUS PRN phosphorus 500 mg tab(s) (K PHOS NEUTRAL) 500 mg ORAL/FEEDING TUBE PRN(NO DISPENSE) heparin 5,000 Units injection 5,000 Units SUBCUTANEOUS q 12 H NaCl 0.9% iv flush bag 20 mL INTRAVENOUS PRN acetaminophen 325 mg tab(s) (TYLENOL) 325 mg ORAL/FEEDING TUBE q 6 H PRN insulin regular human injection (short acting) SUBCUTANEOUS q 6 H insulin regular 100 units in NaCl 0.9% 100 mL - ICU NOMOGRAM 0-30 Units/hr INTRAVENOUS CONTINUOUS insulin regular human 2-10 Units bolus from bag 2-10 Units INTRAVENOUS PRN dextrose 15 gram/32 mL 15 g (TRUEPLUS) 15 g ORAL PRN glucagon 1 mg injection 1 mg SUBCUTANEOUS PRN dextrose 10% iv bolus 12.5-25 g INTRAVENOUS PRN pantoprazole 40 mg injection (PROTONIX) 40 mg INTRAVENOUS DAILY (6 AM) cefTRIAXone 2 g in D5W 100 mL Vial-Bag (ROCEPHIN) 2 g INTRAVENOUS q 24 H polyethylene glycol 3350 17 g packet 17 g ORAL/FEEDING TUBE TID dextrose 5% in water iv flush bag 20 mL INTRAVENOUS PRN acetylcysteine 9,460 mg in D5W 1,000 mL (ACETADOTE) 100 mg/kg/dose INTRAVENOUS ONCE mupirocin 2 % 0.5 g nasal ointment (BACTROBAN) 0.5 g NASAL BID senna 8.6 mg tab(s) (SENOKOT) 8.6 mg ORAL/FEEDING TUBE BID dextrose 5% in water iv flush bag 20 mL INTRAV (more content not included)... Normal [facility] CONSULT PROGon 05-12-2024 CONSULT PROG HNO ID: [id number] Author: ROSANA RICKETTS MD Service: Nephrology Author Type: Physician Type: Consult Progress Note Filed: 05/12/2024 11:58 Note Text: CONSULT: NEPHROLOGY SERVICE SERVICE DATE: 05/11/2024 SERVICE TIME: 4:14 PM REASON FOR CONSULT: I am asked to see this patient in consultation for my opinion regarding LEAH. My recommendations will be communicated by way of shared medical record. REQUESTING PHYSICIAN: Mk Suggs PA-C PRIMARY CARE PHYSICIAN: No primary care provider on file. Subjective CHIEF COMPLAINT: Presented with fall, transferred from OSH for acute on chronic liver failure HPI: Ms. Mcfarlane is a 48 year old female with past medical history of alcoholic liver cirrhosis, iron deficiency anemia, initially presented at OSH on 05/10 following a fall witnessed by patient's son. Transferred to [facility] for further management of liver failure. Nephrology is consulted for LEAH Limited medical information in chart. Patient remains drowsy during my interview, limited information obtained from patient patient's and documentation from prior hospital. EMS was called 2 days ago following a fall witnessed by patient's son and patient taken to local ED. She was found to have severe leukocytosis, hemoglobin of 5.7, INR of 3.1, creatinine of 2.48 and BUN of 19 with a K of 5.0 patient also had transaminitis. She received 4 units of PRBC and 250 cc LR bolus x 2 and transferred to [facility] today for further management. Labs on arrival shows a creatinine of 1.98. 100 cc of urine in Doty catheter placed at OSH. Also noted to have hypercalcemia 11.1 [13 at OSH] hemoglobin 8.1. Patient reports feeling weak with reduced appetite, nausea and generalized fatigue 1 week prior to patient's fall. Has not been eating over this past 1 week except protein and electrolyte drinks. No history of overt bleeding. No known kidney disease in the past. The patient does not follow with PCP or biomass technician outpatient. No past medical history on file. No past surgical history on file. No family history on file. MEDICATIONS: Prior to Admission Medications No medications prior to admission. Current Facility-Administered Medications Medication Dose Route Frequency potassium chloride 40 mEq oral powder (KLOR-CON) 40 mEq ORAL/FEEDING TUBE q 2 H PRN magnesium sulfate iv piggyback in sterile water 2 g 50 mL 2 g INTRAVENOUS PRN phosphorus 500 mg tab(s) (K PHOS NEUTRAL) 500 mg ORAL/FEEDING TUBE PRN(NO DISPENSE) heparin 5,000 Units injection 5,000 Units SUBCUTANEOUS q 12 H NaCl 0.9% iv flush bag 20 mL INTRAVENOUS PRN acetaminophen 325 mg tab(s) (TYLENOL) 325 mg ORAL/FEEDING TUBE q 6 H PRN insulin regular human injection (short acting) SUBCUTANEOUS q 6 H insulin regular 100 units in NaCl 0.9% 100 mL - ICU NOMOGRAM 0-30 Units/hr INTRAVENOUS CONTINUOUS insulin regular human 2-10 Units bolus from bag 2-10 Units INTRAVENOUS PRN dextrose 15 gram/32 mL 15 g (TRUEPLUS) 15 g ORAL PRN glucagon 1 mg injection 1 mg SUBCUTANEOUS PRN dextrose 10% iv bolus 12.5-25 g INTRAVENOUS PRN sodium chloride 0.9 % (flush) 2-10 mL (BD POSIFLUSH) 2-10 mL INTRAVENOUS DIRECTED PRN And perflutren lipid microspheres 1.1 mg/mL 1.3 mL injection (DEFINITY) 1.3 mL INTRAVENOUS DIRECTED PRN [START ON 05/12/2024] pantoprazole 40 mg injection (PROTONIX) 40 mg INTRAVENOUS DAILY (6 AM) cefTRIAXone 2 g in D5W 100 mL Vial-Bag (ROCEPHIN) 2 g INTRAVENOUS q 24 H polyethylene glycol 3350 17 g packet 17 g ORAL/FEEDING TUBE TID dextrose 5% in water iv flush bag 20 mL INTRAVENOUS PRN acetylcysteine 4,720 mg in D5W 500 mL (ACETADOTE) 50 mg/kg/dose INTRAVENOUS ONCE acetylcysteine 9,460 mg in D5W 1,000 mL (ACETADOTE) 100 mg/kg/dose INTRAVENOUS ONCE fentaNYL 50 mcg/mL 12.5 mcg injection (SUBLIMAZE) 12.5 mcg INTRAVENOUS ONCE ALLERGIES No Known Allergies REVIEW OF SYSTEMS: As per HPI Objective PHYSICAL EXAM: BP 99/51 Pulse 90 Temp 37.1 ?C (98.8 ?F) (Oral) Resp (!) 31 Wt 94.5 kg (208 lb 5.4 oz) SpO2 96% Intake/Output Summary (Last 24 hours) at 05/11/2024 1614 Last data filed at 05/11/2024 1230 Gross per 24 hour Intake 0 ml Output 100 ml Net -100 ml Constitutional: Drowsy head: atraumatic Neck: supple Cardiac: RRR Respiratory: normal respiratory effort on 2 L of oxygen Abdomen: soft, nontender, distended with fluid thrill extremities: 2+ bilateral lower extremity edema skin: no rashes Neuro: alert and oriented, moving all extremities DATA: Diagnostic tests reviewed for today's visit: Most recent labs and imaging results. Recent Labs 05/11/24 1259 NA 133* K 5.4* CHLOR 87* CO2 26 BUN 95* CREAT 1.98* GLUC 101* ANION 20* CA 11.1* Recent Labs 05/11/24 1259 WBC 15.31* HB 8.1* HCT 23.3* PLT 146* No results for input(s): COLOR , CLARITY , UGLUC , UBILI , UKET , SPGR , UHB , UPH , UPROT , NITRITES , LEUKEST , UWBC , URBC in the last 8784 hours. (more content not included)... Normal [facility] CONSULT PROG HNO ID: [id number] Author: MARC QUINTANA MD Service: Hepatology Author Type: Fellow Type: Consult Progress Note Filed: 05/12/2024 14:06 Note Text: Hepatology Consult Service Progress Note Department of Gastroenterology AND Hepatology Digestive Disease [place] [facility] Date of Service Impression: Cielo Mcfarlane is a 48 year old woman with PMH of HTN, Type II DM, HLD who was transferred from an outside hospital in the context of an unwitnessed fall at home, with evidence of acute on chronic liver failure for which hepatology has been consulted. Interval events: - full LT evaluation started, SW cleared - her mental status improved, off pressor, plan to transferr to [place] service MELD 3.0: 36 at 05/11/2024 11:16 PM MELD-Na: 34 at 05/11/2024 11:16 PM Calculated from: Serum Creatinine: 2.01 mg/dL at 05/11/2024 11:16 PM Serum Sodium: 133 mmol/L at 05/11/2024 11:16 PM Total Bilirubin: 19.5 mg/dL at 05/11/2024 11:16 PM Serum Albumin: 3.6 g/dL (Using max of 3.5 g/dL) at 05/11/2024 11:16 PM INR(ratio): 2.2 at 05/11/2024 11:16 PM Age at listing (hypothetical): 48 years Sex: Female at 05/11/2024 11:16 PM Recommendations: - Decompensated cirrhosis (imaging based), ACLF gr 2, SHAYY C 51 - MELD 3.0 36 -- CMP, CBC, INR for MELD. Max 2g/day Tylenol. -- HCV RNA neg, chronic and acute viral hepatitis serologies, AMA, anti smooth muscle, anti liver kidney, MARC, IgG, ceruloplasmin, HFE, PETH --infection workup: blood culture in process, please obtain UA, Influenza and COVID neg - on ceftriaxone (1st 05/11) -- continue NAC gtt given report of tylenol ingestion at home by -- INR- 3 full days of 10 mg IV vitamin K (). INR 2.2 -- TJLB will plan - HE: ammonia 43 (05/11), please continue lactulose with target of 3-4 BM per day, add rifaximin - LEAH - prerenal > HRS: baseline sCr unknown, sCr 2.16-2.01- 1.98 (UO 690, net +971), urine sodium 24, urine osmolality 370, 2+, nitrates positive. Improvement in Scr after PRBC and 500 cc of fluid supports prerenal injury - appreciate nephrology input - Ascites: trace ascites, para 05/11, removed 120 ml fluid, PMN 148, TP 1.5, albumin 1.0, SAAG 2.6, - EV: Will require EGD this admission given presenting anemia, Would favor waiting until encephalopathy improved if no overt bleeding - LT: full evaluation, SW cleared Anesthesia consult (please call control desk) 2. ID consult (transplant specific ) 3. Nutrition (transplant specific) 4. Dermatology Clearance 5. Chest CT WO contrast 6. EGD 7. Space Operations Officer consult for PAP (ching stat) 8. Mammogram /US / Breast Exam (LINING REPAIRER can do) 9. HCV donor discussion 10. Document Height Marc Quintana, Hepatology Fellow Will discuss with staff. Current Facility-Administered Medications Medication Dose Route Frequency potassium chloride 40 mEq oral powder (KLOR-CON) 40 mEq ORAL/FEEDING TUBE q 2 H PRN magnesium sulfate iv piggyback in sterile water 2 g 50 mL 2 g INTRAVENOUS PRN phosphorus 500 mg tab(s) (K PHOS NEUTRAL) 500 mg ORAL/FEEDING TUBE PRN(NO DISPENSE) heparin 5,000 Units injection 5,000 Units SUBCUTANEOUS q 12 H NaCl 0.9% iv flush bag 20 mL INTRAVENOUS PRN acetaminophen 325 mg tab(s) (TYLENOL) 325 mg ORAL/FEEDING TUBE q 6 H PRN insulin regular human injection (short acting) SUBCUTANEOUS q 6 H insulin regular 100 units in NaCl 0.9% 100 mL - ICU NOMOGRAM 0-30 Units/hr INTRAVENOUS CONTINUOUS insulin regular human 2-10 Units bolus from bag 2-10 Units INTRAVENOUS PRN dextrose 15 gram/32 mL 15 g (TRUEPLUS) 15 g ORAL PRN glucagon 1 mg injection 1 mg SUBCUTANEOUS PRN dextrose 10% iv bolus 12.5-25 g INTRAVENOUS PRN sodium chloride 0.9 % (flush) 2-10 mL (BD POSIFLUSH) 2-10 mL INTRAVENOUS DIRECTED PRN And perflutren lipid microspheres 1.1 mg/mL 1.3 mL injection (DEFINITY) 1.3 mL INTRAVENOUS DIRECTED PRN pantoprazole 40 mg injection (PROTONIX) 40 mg INTRAVENOUS DAILY (6 AM) cefTRIAXone 2 g in D5W 100 mL Vial-Bag (ROCEPHIN) 2 g INTRAVENOUS q 24 H polyethylene glycol 3350 17 g packet 17 g ORAL/FEEDING TUBE TID dextrose 5% in water iv flush bag 20 mL INTRAVENOUS PRN acetylcysteine 9,460 mg in D5W 1,000 mL (ACETADOTE) 100 mg/kg/dose INTRAVENOUS ONCE mupirocin 2 % 0.5 g nasal ointment (BACTROBAN) 0.5 g NASAL BID Physical Exam: Vital Signs 05/12/24 0500 05/12/24 0518 05/12/24 0545 05/12/24 0600 BP: 112/59 100/53 99/54 Pulse: 85 85 86 85 Resp: Temp: TempSrc: SpO2: 98% 99% 99% 99% Weight: 95.2 kg (209 lb 14.1 oz) Intake/Output Summary (Last 24 hours) at 05/12/2024 0651 Last data filed at 05/12/2024 0545 Gross per 24 hour Intake 1661.6 ml Output 690 ml Net 971.6 ml VITAL SIGNS: BP 99/54 Pulse 85 Temp (Src) 98 (Axillary) Resp 22 Wt 209 lb 14.1 oz (95.2kg) SpO2 99% O2 Therapy: Nasal Cannula, Liters: 3 Skin: No gross lesions Eyes: icteric sclera. Lungs: Breathing unlabored Abdomen: distended, mildly tender, no positive fluid (more content not included)... Normal [facility] CT CHEST WO IVCONon 05-12-[address] CHEST WO IVCON * * *Final Report* * * DATE OF EXAM: May 12 2024 6:03PM [facility] - [place] CHEST WO IVCON / PROCEDURE REASON: OLT workup * * * * Physician Interpretation * * * * EXAMINATION: CHEST CT WITHOUT CONTRAST CLINICAL HISTORY: OLT workup Technique: Spiral CT acquisition of the chest from the thoracic inlet to the upper abdomen without contrast. MQ: [id number]_6 CT Radiation dose: Integrated Dose-length product (DLP) for this visit = 213 mGy*cm CT Dose Reduction Employed: Automated exposure control (AEC) Comparison: None available RESULT: Lines, tubes, and devices: None. Lung parenchyma and airways: No consolidation. No suspicious pulmonary nodule. The central airways are patent. Left greater than right dependent lung opacities likely atelectasis and/or mild aspiration. Pleural space: Small dependent left effusion. Trace right effusion. Lower neck, lymph nodes, and mediastinum: The imaged thyroid gland is normal. No pathologically enlarged lymphadenopathy in the supraclavicular, axillary, mediastinal, or hilar regions. Heart, pericardium, and thoracic vessels: The thoracic aorta and main pulmonary artery are normal in caliber. The cardiac chambers are normal in size. Mild coronary artery atherosclerotic calcifications are noted, although the study is not optimized for coronary assessment. No pericardial effusion or thickening. Bones and soft tissues: Mild degenerative changes of the thoracic spine. No destructive bone lesion. Chest wall is unremarkable. Upper abdomen: No acute abnormality in the imaged upper abdomen. Mild upper abdominal ascites. Localizer images: No additional findings. IMPRESSION: Small dependent left effusion with overlying atelectasis, trace right effusion with overlying atelectasis. Outreach Manager: PSCB Transcribe Date/Time: May 12 2024 9:10P Dictated by : SYD QUIROZ MD This examination was interpreted and the report reviewed and electronically signed by: SYD QUIROZ MD on May 12 2024 9:14PM EST [id number] N Normal [facility] Gas + CO Pnl BldVon 05-12-20 24 Potassium [Moles/Vol] 3.8 mmol/L Normal 3.7-5.1 [facility] Comment on above: Order Comment: Speci men Type: FLUID SPECIMEN Ordering Facility: [facility] Address: [address] [place] [address] Performed By: #### C CBF, [id number] #### [facility] CLIA [id number] [address] [place] [address] [place] Order Comment: Speci men Type: VENOUS BLOOD SPECIMEN Ordering Facility: [facility] Address: [address] [place] [address] Performed By: #### 2 4344-4 #### [facility] CLIA [id number] [address] [place] [address] [place] Gas and Carbon monoxide pane l (BldV)on 05-12-2024 Base excess Calc (BldV) [Moles/Vol] 5 mmol/L High 0-2 [facility] Comment on above: Order Comment: Speci men Type: FLUID SPECIMEN Ordering Facility: [facility] Address: [address] [place] [address] Performed By: #### C CBF, [id number] #### [facility] CLIA [id number] [address] [place] [address] [place] Body temperature 98.6 [degF] Normal [facility] Comment on above: Order Comment: Speci men Type: FLUID SPECIMEN Ordering Facility: [facility] Address: [address] [place] [address] Performed By: #### C CBF, [id number] #### [facility] CLIA [id number] [address] [place] [address] [place] Calcium.ionized (Bld) [Mass/Vol] 1.29 mmol/L Normal 1.08-1.30 [facility] Comment on above: Order Comment: Speci men Type: FLUID SPECIMEN Ordering Facility: [facility] Address: [address] [place] [address] Performed By: #### C CBF, [id number] #### [facility] CLIA [id number] [address] [place] [address] [place] Calcium.ionized adjusted to pH 7.4 (BldA) [Moles/Vol] 1.29 mmol/L Normal 1.08-1.30 [facility] Comment on above: Order Comment: Speci men Type: FLUID SPECIMEN Ordering Facility: [facility] Address: [address] [place] [address] Performed By: #### C CBF, [id number] #### [facility] CLIA [id number] [address] [place] [address] [place] Carboxyhemoglobin (BldV) [Mass fraction] 2.2 % High 0.0-2.0 [facility] Comment on above: Order Comment: Speci men Type: FLUID SPECIMEN Ordering Facility: [facility] Address: [address] [place] [address] Result Comment: Carb oxyhemoglobin Reference Range for Smokers: 2.0-8.0% Performed By: #### C CBF, [id number] #### [facility] CLIA [id number] [address] [place] [address] [place] CO2 (BldV) [Partial pressure] 48 mm[Hg] Normal 42-55 [facility] Comment on above: Order Comment: Speci men Type: FLUID SPECIMEN Ordering Facility: [facility] Address: [address] [place] [address] Performed By: #### C CBF, [id number] #### [facility] CLIA [id number] [address] [place] [address] [place] Glucose [Mass/Vol] 163 mg/dL High 60-105 [facility] Comment on above: Order Comment: Speci men Type: FLUID SPECIMEN Ordering Facility: [facility] Address: [address] [place] [address] Performed By: #### C CBF, [id number] #### [facility] CLIA [id number] [address] [place] [address] [place] HCO3 (Bld) [Moles/Vol] 29 mmol/L High 24-28 [facility] Comment on above: Order Comment: Speci men Type: FLUID SPECIMEN Ordering Facility: [facility] Address: [address] [place] [address] Performed By: #### C CBF, [id number] #### [facility] CLIA [id number] [address] [place] [address] [place] Hematocrit (Bld) [Volume fraction] 25.6 % Low 36.0-46.0 [facility] Comment on above: Order Comment: Speci men Type: FLUID SPECIMEN Ordering Facility: [facility] Address: [address] [place] [address] Performed By: #### C CBF, [id number] #### [facility] CLIA [id number] [address] [place] [address] [place] Hemoglobin (Bld) [Mass/Vol] 8.2 g/dL Low 11.5-15.5 [facility] Comment on above: Order Comment: Speci men Type: FLUID SPECIMEN Ordering Facility: [facility] Address: [address] [place] [address] Performed By: #### C CBF, [id number] #### [facility] CLIA [id number] [address] [place] [address] [place] Lactate [Moles/Vol] 3.3 mmol/L High 0.5-2.2 [facility] Comment on above: Order Comment: Speci men Type: FLUID SPECIMEN Ordering Facility: [facility] Address: [address] [place] [address] Performed By: #### C CBF, [id number] #### [facility] CLIA [id number] [address] [place] [address] [place] LITERS 1 Liters/min Normal [facility] Comment on above: Order Comment: Speci men Type: FLUID SPECIMEN Ordering Facility: [facility] Address: [address] [place] [address] Performed By: #### C CBF, [id number] #### [facility] CLIA [id number] [address] [place] [address] [place] Methemoglobin (Bld) [Mass fraction] 0.1 % Normal 0.0-1.5 [facility] Comment on above: Order Comment: Speci men Type: FLUID SPECIMEN Ordering Facility: [facility] Address: [address] [place] [address] Performed By: #### C CBF, [id number] #### [facility] CLIA [id number] [address] [place] [address] [place] O2 THERAPY NC = Nasal Cannula Normal [facility] Comment on above: Order Comment: Speci men Type: FLUID SPECIMEN Ordering Facility: [facility] Address: [address] [place] [address] Performed By: #### C CBF, [id number] #### [facility] CLIA [id number] [address] [place] [address] [place] Oxygen (BldV) [Partial pressure] 79 mm[Hg] High 35-45 [facility] Comment on above: Order Comment: Speci men Type: FLUID SPECIMEN Ordering Facility: [facility] Address: [address] [place] [address] Performed By: #### C CBF, [id number] #### [facility] CLIA [id number] [address] [place] [address] [place] Oxygen saturation in Venous blood 96 % High 60-85 [facility] Comment on above: Order Comment: Speci men Type: FLUID SPECIMEN Ordering Facility: [facility] Address: [address] [place] [address] Performed By: #### C CBF, [id number] #### [facility] CLIA [id number] [address] [place] [address] [place] Oxyhemoglobin (BldV) [Mass fraction] 94 % High 60-85 [facility] Comment on above: Order Comment: Speci men Type: FLUID SPECIMEN Ordering Facility: [facility] Address: [address] [place] [address] Performed By: #### C CBF, [id number] #### [facility] CLIA [id number] [address] [place] [address] [place] pH (BldV) 7.40 [pH] Normal 7.32-7.42 [facility] Comment on above: Order Comment: Speci men Type: FLUID SPECIMEN Ordering Facility: [facility] Address: [address] [place] [address] Performed By: #### C CBF, [id number] #### [facility] CLIA [id number] [address] [place] [address] [place] Sodium [Moles/Vol] 131 mmol/L Low 136-144 [facility] Comment on above: Order Comment: Speci men Type: FLUID SPECIMEN Ordering Facility: [facility] Address: [address] [place] [address] Performed By: #### C CBF, [id number] #### [facility] CLIA [id number] [address] [place] [address] [place] Base excess Calc (BldV) [Moles/Vol] 4 mmol/L High 0-2 [facility] Comment on above: Order Comment: Speci men Type: VENOUS BLOOD SPECIMENOrdering Facility: [facility] Address: [address] [place] [address] Performed By: #### 2 4344-4 ####[facility] [id number] [place] [address] [place] Body temperature 98.42 [degF] Normal [facility] Comment on above: Order Comment: Speci men Type: VENOUS BLOOD SPECIMENOrdering Facility: [facility] Address: [address] [place] [address] Performed By: #### 2 4344-4 ####[facility] [id number] [place] [address] [place] Calcium.ionized (Bld) [Mass/Vol] 1.31 mmol/L High 1.08-1.30 [facility] Comment on above: Order Comment: Speci men Type: VENOUS BLOOD SPECIMENOrdering Facility: [facility] Address: [address] [place] [address] Performed By: #### 2 4344-4 ####[facility] [id number] [place] [address] [place] Calcium.ionized adjusted to pH 7.4 (BldA) [Moles/Vol] 1.32 mmol/L High 1.08-1.30 [facility] Comment on above: Order Comment: Speci men Type: VENOUS BLOOD SPECIMENOrdering Facility: [facility] Address: [address] [place] [address] Performed By: #### 2 4344-4 ####[facility] [id number] [place] [address] [place] Carboxyhemoglobin (BldV) [Mass fraction] 2.3 % High 0.0-2.0 [facility] Comment on above: Order Comment: Speci men Type: VENOUS BLOOD SPECIMENOrdering Facility: [facility] Address: [address] [place] [address] Result Comment: Carb oxyhemoglobin Reference Range for Smokers: 2.0-8.0% Performed By: #### 2 4344-4 ####[facility] [id number] [place] [address] [place] CO2 (BldV) [Partial pressure] 47 mm[Hg] Normal 42-55 [facility] Comment on above: Order Comment: Speci men Type: VENOUS BLOOD SPECIMENOrdering Facility: [facility] Address: [address] [place] [address] Performed By: #### 2 4344-4 ####[facility] [id number] [place] [address] [place] CO2 adjusted to patient's actual temperature (BldV) [Partial pressure] 46 mmHg Normal 42-55 [facility] Comment on above: Order Comment: Speci men Type: VENOUS BLOOD SPECIMENOrdering Facility: [facility] Address: [address] [place] [address] Performed By: #### 2 4344-4 ####[facility] [id number] [place] [address] [place] Glucose [Mass/Vol] 232 mg/dL High 60-105 [facility] Comment on above: Order Comment: Speci men Type: VENOUS BLOOD SPECIMENOrdering Facility: [facility] Address: [address] [place] [address] Performed By: #### 2 4344-4 ####[facility] [id number] [place] [address] [place] HCO3 (Bld) [Moles/Vol] 29 mmol/L High 24-28 [facility] Comment on above: Order Comment: Speci men Type: VENOUS BLOOD SPECIMENOrdering Facility: [facility] Address: [address] [place] [address] Performed By: #### 2 4344-4 ####[facility] [id number] [place] [address] [place] Hematocrit (Bld) [Volume fraction] 25.1 % Low 36.0-46.0 [facility] Comment on above: Order Comment: Speci men Type: VENOUS BLOOD SPECIMENOrdering Facility: [facility] Address: [address] [place] [address] Performed By: #### 2 4344-4 ####[facility] [id number] [place] [address] [place] Hemoglobin (Bld) [Mass/Vol] 8.1 g/dL Low 11.5-15.5 [facility] Comment on above: Order Comment: Speci men Type: VENOUS BLOOD SPECIMENOrdering Facility: [facility] Address: [address] [place] [address] Performed By: #### 2 4344-4 ####[facility] [id number] [place] [address] [place] Lactate [Moles/Vol] 3.5 mmol/L High 0.5-2.2 [facility] Comment on above: Order Comment: Speci men Type: VENOUS BLOOD SPECIMENOrdering Facility: [facility] Address: [address] [place] [address] Performed By: #### 2 4344-4 ####[facility] [id number] [place] [address] [place] LITERS 1 Liters/min Normal [facility] Comment on above: Order Comment: Speci men Type: VENOUS BLOOD SPECIMENOrdering Facility: [facility] Address: [address] [place] [address] Performed By: #### 2 4344-4 ####[facility] [id number] [place] [address] [place] Methemoglobin (Bld) [Mass fraction] 0.1 % Normal 0.0-1.5 [facility] Comment on above: Order Comment: Speci men Type: VENOUS BLOOD SPECIMENOrdering Facility: [facility] Address: [address] [place] [address] Performed By: #### 2 4344-4 ####[facility] [id number] [place] [address] [place] O2 THERAPY NC = Nasal Cannula Normal [facility] Comment on above: Order Comment: Speci men Type: VENOUS BLOOD SPECIMENOrdering Facility: [facility] Address: [address] [place] [address] Performed By: #### 2 4344-4 ####[facility] [id number] [address] [address] [place] Oxygen (BldV) [Partial pressure] 90 mm[Hg] High 35-45 [facility] Comment on above: Order Comment: Speci men Type: VENOUS BLOOD SPECIMENOrdering Facility: [facility] Address: [address] [place] [address] Performed By: #### 2 4344-4 ####[facility] [id number] [address] [address] [place] Oxygen adjusted to patient's actual temperature (BldV) [Partial pressure] 90 mmHg High 35-45 [facility] Comment on above: Order Comment: Speci men Type: VENOUS BLOOD SPECIMENOrdering Facility: [facility] Address: [address] [place] [address] Performed By: #### 2 4344-4 ####[facility] [id number] [address] [address] [place] Oxygen saturation in Venous blood 97 % High 60-85 [facility] Comment on above: Order Comment: Speci men Type: VENOUS BLOOD SPECIMENOrdering Facility: [facility] Address: [address] [place] [address] Performed By: #### 2 4344-4 ####[facility] [id number] [address] [address] [place] Oxyhemoglobin (BldV) [Mass fraction] 95 % High 60-85 [facility] Comment on above: Order Comment: Speci men Type: VENOUS BLOOD SPECIMENOrdering Facility: [facility] Address: [address] [place] [address] Performed By: #### 2 4344-4 ####[facility] [id number] [place] [address] [place] pH (BldV) 7.41 [pH] Normal 7.32-7.42 [facility] Comment on above: Order Comment: Speci men Type: VENOUS BLOOD SPECIMENOrdering Facility: [facility] Address: [address] [place] [address] Performed By: #### 2 4344-4 ####[facility] [id number] [place] [address] [place] pH adjusted to patient's actual temperature (BldV) 7.41 Normal 7.32-7.42 [facility] Comment on above: Order Comment: Speci men Type: VENOUS BLOOD SPECIMENOrdering Facility: [facility] Address: [address] [place] [address] Performed By: #### 2 4344-4 ####[facility] [id number] [place] [address] [place] Potassium [Moles/Vol] 3.3 mmol/L Low 3.5-5.0 [facility] Comment on above: Order Comment: Speci men Type: VENOUS BLOOD SPECIMENOrdering Facility: [facility] Address: [address] [place] [address] Performed By: #### 2 4344-4 ####[facility] [id number] [place] [address] [place] Sodium [Moles/Vol] 131 mmol/L Low 136-144 [facility] Comment on above: Order Comment: Speci men Type: VENOUS BLOOD SPECIMENOrdering Facility: [facility] Address: [address] [place] [address] Performed By: #### 2 4344-4 ####[facility] [id number] [place] [address] [place] Base excess Calc (BldV) [Moles/Vol] 3 mmol/L High 0-2 [facility] Comment on above: Order Comment: Speci men Type: FLUID SPECIMEN Ordering Facility: [facility] Address: [address] [place] [address] Performed By: #### C DOUGLAS, [id number] #### [facility] CLIA [id number] [address] [place] [address] [place] Body temperature 97.88 [degF] Normal [facility] Comment on above: Order Comment: Speci men Type: FLUID SPECIMEN Ordering Facility: [facility] Address: [address] [place] [address] Performed By: #### C CBF, [id number] #### [facility] CLIA [id number] [address] [place] [address] [place] Calcium.ionized (Bld) [Mass/Vol] 1.28 mmol/L Normal 1.08-1.30 [facility] Comment on above: Order Comment: Speci men Type: FLUID SPECIMEN Ordering Facility: [facility] Address: [address] [place] [address] Performed By: #### C CBF, [id number] #### [facility] CLIA [id number] [address] [place] [address] [place] Calcium.ionized adjusted to pH 7.4 (BldA) [Moles/Vol] 1.26 mmol/L Normal 1.08-1.30 [facility] Comment on above: Order Comment: Speci men Type: FLUID SPECIMEN Ordering Facility: [facility] Address: [address] [place] [address] Performed By: #### C CBF, [id number] #### [facility] CLIA [id number] [address] [place] [address] [place] Carboxyhemoglobin (BldV) [Mass fraction] 2.5 % High 0.0-2.0 [facility] Comment on above: Order Comment: Speci men Type: FLUID SPECIMEN Ordering Facility: [facility] Address: [address], [place] [address] Result Comment: Carb oxyhemoglobin Reference Range for Smokers: 2.0-8.0% Performed By: #### C CBF, [id number] #### [facility] CLIA [id number] [address] [place] [address] [place] CO2 (BldV) [Partial pressure] 49 mm[Hg] Normal 42-55 [facility] Comment on above: Order Comment: Speci men Type: FLUID SPECIMEN Ordering Facility: [facility] Address: [address] [place] [address] Performed By: #### C CBF, [id number] #### [facility] CLIA [id number] [address] [place] [address] [place] CO2 adjusted to patient's actual temperature (BldV) [Partial pressure] 48 mmHg Normal 42-55 [facility] Comment on above: Order Comment: Speci men Type: FLUID SPECIMEN [facility] Address: [address] [place] [address] Performed By: #### C CBF, [id number] #### [facility] CLIA [id number] [address] [place] [address] [place] Glucose [Mass/Vol] 221 mg/dL High 60-105 [facility] Comment on above: Order Comment: Speci men Type: FLUID SPECIMEN [facility] Address: [address] [place] [address] Performed By: #### C CBF, [id number] #### [facility] CLIA [id number] [address] [place] [address] [place] HCO3 (Bld) [Moles/Vol] 28 mmol/L Normal 24-28 [facility] Comment on above: Order Comment: Speci men Type: FLUID SPECIMEN Order[facility] Facility: [facility] Address: [address] [place] [address] Performed By: #### C CBF, [id number] #### [facility] CLIA [id number] [address] [place] [address] [place] Hematocrit (Bld) [Volume fraction] 24.6 % Low 36.0-46.0 [facility] Comment on above: Order Comment: Speci men Type: FLUID SPECIMEN Ordering Facility: [facility] Address: [address] [place] [address] Performed By: #### C CBF, [id number] #### [facility] CLIA [id number] [address] [place] [address] [place] Hemoglobin (Bld) [Mass/Vol] 7.9 g/dL Low 11.5-15.5 [facility] Comment on above: Order Comment: Speci men Type: FLUID SPECIMEN Order[facility] Facility: [facility] Address: [address] [place] [address] Performed By: #### C CBF, [id number] #### [facility] CLIA [id number] [address] [place] [address] [place] Lactate [Moles/Vol] 3.6 mmol/L High 0.5-2.2 [facility] Comment on above: Order Comment: Speci men Type: FLUID SPECIMEN Order[facility] Facility: [facility] Address: [address] [place] [address] Performed By: #### C CBF, [id number] #### [facility] CLIA [id number] [address] [place] [address] [place] LITERS 2 Liters/min Normal [facility] Comment on above: Order Comment: Speci men Type: FLUID SPECIMEN Order[facility] Facility: [facility] Address: [address] [place] [address] Performed By: #### C CBF, [id number] #### [facility] CLIA [id number] [address] [place] [address] [place] Methemoglobin (Bld) [Mass fraction] 0.2 % Normal 0.0-1.5 [facility] Comment on above: Order Comment: Speci men Type: FLUID SPECIMEN Ordering Facility: [facility] Address: [address] [place] [id number] Performed By: #### C CBF, [id number] #### [facility] CLIA [id number] [address] [place], [place] [address] [place] O2 THERAPY NC = Nasal Cannula Normal [facility] Comment on above: Order Comment: Speci men Type: FLUID SPECIMEN Ordering Facility: [facility] Address: [address] [place], [place] [address] Performed By: #### C CBF, [id number] #### [facility] CLIA [id number] [address] [place], [place] [address] [place] Oxygen (BldV) [Partial pressure] 52 mm[Hg] High 35-45 [facility] Comment on above: Order Comment: Speci men Type: FLUID SPECIMEN Ordering Facility: [facility] Address: [address] [place] [address] Performed By: #### C CBF, [id number] #### [facility] CLIA [id number] [address] [place], [place] [address] [place] Oxygen adjusted to patient's actual temperature (BldV) [Partial pressure] 51 mmHg High 35-45 [facility] Comment on above: Order Comment: Speci men Type: FLUID SPECIMEN Ordering Facility: [facility] Address: [address] [place], [place] [address] Performed By: #### C CBF, [id number] #### [facility] CLIA [id number] [address] [place] [address] [place] Oxygen saturation in Venous blood 83 % Normal 60-85 [facility] Comment on above: Order Comment: Speci men Type: FLUID SPECIMEN Order[facility] Facility: [facility] Address: [address] [place] [id number] Performed By: #### C CBF, [id number] #### [facility] CLIA [id number] [address] [place], [place] [address] [place] Oxyhemoglobin (BldV) [Mass fraction] 81 % Normal 60-85 [facility] Comment on above: Order Comment: Speci men Type: FLUID SPECIMEN Order[facility] Facility: [facility] Address: [address] [place] [address] Performed By: #### C CBF, [id number] #### [facility] CLIA [id number] [address] [place] [address] [place] pH (BldV) 7.38 [pH] Normal 7.32-7.42 [facility] Comment on above: Order Comment: Speci men Type: FLUID SPECIMEN Order[facility] Facility: [facility] Address: [address] [place] [address] Performed By: #### C CBF, [id number] #### [facility] CLIA [id number] [address] [place] [address] [place] pH adjusted to patient's actual temperature (BldV) 7.38 Normal 7.32-7.42 [facility] Comment on above: Order Comment: Speci men Type: FLUID SPECIMEN Order[facility] Facility: [facility] Address: [address] [place] [address] Performed By: #### C CBF, [id number] #### [facility] CLIA [id number] [address] [place] [address] [place] Potassium [Moles/Vol] 3.5 mmol/L Normal 3.5-5.0 [facility] Comment on above: Order Comment: Speci men Type: FLUID SPECIMEN Ordering Facility: [facility] Address: [address] [place] [address] Performed By: #### C CBF, [id number] #### [facility] CLIA [id number] [address] [place] [address] [place] Sodium [Moles/Vol] 132 mmol/L Low 136-144 [facility] Comment on above: Order Comment: Speci men Type: FLUID SPECIMEN Ordering Facility: [facility] Address: [address] [place] [address] Performed By: #### C [facility], [id number] #### [facility] CLIA [id number] [address] [place] [address] [place] Base excess Calc (BldV) [Moles/Vol] 4 mmol/L High 0-2 [facility] Comment on above: Order Comment: Speci men Type: VENOUS BLOOD SPECIMEN Ordering Facility: [facility] Address: [address] [place] [address] Performed By: #### 2 4344-4 #### [facility] CLIA [id number] [address] [place] [address] [place] Body temperature 98.6 [degF] Normal [facility] Comment on above: Order Comment: Speci men Type: VENOUS BLOOD SPECIMEN Order[facility] Facility: [facility] Address: [address] [place] [address] Performed By: #### 2 4344-4 #### [facility] CLIA [id number] [address] [place] [address] [place] Calcium.ionized (Bld) [Mass/Vol] 1.34 mmol/L High 1.08-1.30 [facility] Comment on above: Order Comment: Speci men Type: VENOUS BLOOD SPECIMEN Ordering Facility: [facility] Address: [address] [place] [address] Performed By: #### 2 4344-4 #### [facility] CLIA [id number] [address] [place] [address] [place] Calcium.ionized adjusted to pH 7.4 (BldA) [Moles/Vol] 1.34 mmol/L High 1.08-1.30 [facility] Comment on above: Order Comment: Speci men Type: VENOUS BLOOD SPECIMEN Ordering Facility: [facility] Address: [address] [place] [address] Performed By: #### 2 4344-4 #### [facility] CLIA [id number] [facility] [place] [address] [place] Carboxyhemoglobin (BldV) [Mass fraction] 1.8 % Normal 0.0-2.0 [facility] Comment on above: Order Comment: Speci men Type: VENOUS BLOOD SPECIMEN Ordering Facility: [facility] Address: [address] [place] [address] Result Comment: Carb oxyhemoglobin Reference Range for Smokers: 2.0-8.0% Performed By: #### 2 4344-4 #### [facility] CLIA [id number] [address] [place] [address] [place] CO2 (BldV) [Partial pressure] 48 mm[Hg] Normal 42-55 [facility] Comment on above: Order Comment: Speci men Type: VENOUS BLOOD SPECIMEN Ordering Facility: [facility] Address: [address] [place] [address] Performed By: #### 2 4344-4 #### [facility] CLIA [id number] [address] [place] [address] [place] Glucose [Mass/Vol] 187 mg/dL High 60-105 [facility] Comment on above: Order Comment: Speci men Type: VENOUS BLOOD SPECIMEN Order[facility] Facility: [facility] Address: [address] [place] [address] Performed By: #### 2 4344-4 #### [facility] CLIA [id number] [address] [place] [address] [place] HCO3 (Bld) [Moles/Vol] 29 mmol/L High 24-28 [facility] Comment on above: Order Comment: Speci men Type: VENOUS BLOOD SPECIMEN Order[facility] Facility: [facility] Address: [address] [place] [address] Performed By: #### 2 4344-4 #### [facility] CLIA [id number] [address] [place] [address] [place] Hematocrit (Bld) [Volume fraction] 25.9 % Low 36.0-46.0 [facility] Comment on above: Order Comment: Speci men Type: VENOUS BLOOD SPECIMEN Order[facility] Facility: [facility] Address: [address] [place] [address] Performed By: #### 2 4344-4 #### [facility] CLIA [id number] [address] [place] [address] [place] Hemoglobin (Bld) [Mass/Vol] 8.3 g/dL Low 11.5-15.5 [facility] Comment on above: Order Comment: Speci men Type: VENOUS BLOOD SPECIMEN Order[facility] Facility: [facility] Address: [address] [place] [address] Performed By: #### 2 4344-4 #### [facility] CLIA [id number] [address] [place] [address] [place] Lactate [Moles/Vol] 3.1 mmol/L High 0.5-2.2 [facility] Comment on above: Order Comment: Speci men Type: VENOUS BLOOD SPECIMEN Order[facility] Facility: [facility] Address: [address] [place] [address] Performed By: #### 2 4344-4 #### [facility] CLIA [id number] [address] [place] [address] [place] LITERS 3 Liters/min Normal [facility] Comment on above: Order Comment: Speci men Type: VENOUS BLOOD SPECIMEN Order[facility] Facility: [facility] Address: [address] [place] [address] Performed By: #### 2 4344-4 #### [facility] CLIA [id number] [address] [place] [address] [place] Methemoglobin (Bld) [Mass fraction] 0.5 % Normal 0.0-1.5 [facility] Comment on above: Order Comment: Speci men Type: VENOUS BLOOD SPECIMEN Ordering Facility: [facility] Address: [address] [id number] Performed By: #### 2 4344-4 #### [facility] CLIA [id number] [address] [place] [address] [place] O2 THERAPY NC = Nasal Cannula Normal [facility] Comment on above: Order Comment: Speci men Type: VENOUS BLOOD SPECIMEN Ordering Facility: [facility] Address: [address] [place] [address] Performed By: #### 2 4344-4 #### [facility] CLIA [id number] [address] [place] [address] [place] Oxygen (BldV) [Partial pressure] 88 mm[Hg] High 35-45 [facility] Comment on above: Order Comment: Speci men Type: VENOUS BLOOD SPECIMEN Ordering Facility: [facility] Address: [address] [place] [address] Performed By: #### 2 4344-4 #### [facility] CLIA [id number] [address] [place] [address] [place] Oxygen saturation in Venous blood 97 % High 60-85 [facility] Comment on above: Order Comment: Speci men Type: VENOUS BLOOD SPECIMEN Ordering Facility: [facility] Address: [address] [place] [address] Performed By: #### 2 4344-4 #### [facility] CLIA [id number] [address] [place] [address] [place] Oxyhemoglobin (BldV) [Mass fraction] 94 % High 60-85 [facility] Comment on above: Order Comment: Speci men Type: VENOUS BLOOD SPECIMEN Ordering Facility: [facility] Address: [address] [place] [address] Performed By: #### 2 4344-4 #### [facility] CLIA [id number] [address] [place] [address] [place] pH (BldV) 7.40 [pH] Normal 7.32-7.42 [facility] Comment on above: Order Comment: Speci men Type: VENOUS BLOOD SPECIMEN Ordering Facility: [facility] Address: [address] [place] [address] Performed By: #### 2 4344-4 #### [facility] CLIA [id number] [address] [place] [address] [place] Potassium [Moles/Vol] 3.9 mmol/L Normal 3.5-5.0 [facility] Comment on above: Order Comment: Speci men Type: VENOUS BLOOD SPECIMEN Ordering Facility: [facility] Address: [address] [place] [address] Performed By: #### 2 4344-4 #### [facility] CLIA [id number] [address] [place] [address] [place] Sodium [Moles/Vol] 132 mmol/L Low 136-144 [facility] Comment on above: Order Comment: Speci men Type: VENOUS BLOOD SPECIMEN Ordering Facility: [facility] Address: [address] [place] [address] Performed By: #### 2 4344-4 #### [facility] CLIA [id number] [address] [place] [address] [place] HISTORY PHYSICALon HISTORY PHYSICAL HNO ID: [id number] Author: JENI KU MD Service: Transplant Author Type: Physician Type: H&P Filed: 05/12/2024 13:36 Note Text: Patient seen and evaluated. History, labs and images reviewed. No surgical contraindication to proceed with liver transplant. All questions answered. Jeni Ku MD Normal [facility] PT panel Coag (PPP)on 2023 INR Coag (PPP) [Relative time] 2.0 {INR} High 0.9-1.3 [facility] Comment on above: Order Comment: Speci men Type: BLOOD SPECIMENOrdering Facility: [facility] Address: [address] [place] [address] Result Comment: Dianna min K Antagonist (VKA) Therapeutic Range: INR 2 to 3 (Target INR of 2.5) Note: For patients treated with VKA drugs, such as warfarin, the [place] [employer] 2012 Guideline recommends a therapeutic INR range of 2 to 3 (target INR of 2.5). This recommendation includes high-risk patients with antiphospholipid syndrome with previous arterial or venous thromboembolism, current-generation mechanical or bioprosthetic aortic heart valve replacement. Note: Patients with mechanical aortic valve replacement and additional risk factors for thromboembolic events (atrial fibrillation, previous thromboembolism, LV dysfunction, hypercoagulable conditions) or an older generation mechanical AVR (i.e., ball in-Cage) or any mechanical MVR should have a INR therapeutic range of 2.5 to 3.5 (target INR of 3). Lance YOST, et al. Chest 2012, 141:7S-47S Deshawn ORNELAS et al. [facility] 2017, 70: 252-289 Performed By: #### 3 4528-0 ####[facility] [id number] [place] [address] [place] PT Coag (PPP) [Time] 20.3 s High 9.7-13.0 [facility] Comment on above: Order Comment: Speci men Type: BLOOD SPECIMENOrdering Facility: [facility] Address: [address] [place] [address] Performed By: #### 3 4528-0 ####[facility] [id number] [place] [address] [place] THERAPY NTon 05-12-2024 THERAPY NT HNO ID: [id number] Author: CAIT HARRINGTON OT/L Service: Occupational Therapy Author Type: Occupational Therapist Type: Therapy (PT/OT/Speech/Resp) Filed: 05/12/2024 14:18 Note Text: Occupational Therapy Treatment Summary SERVICE DATE: 05/12/2024 SERVICE TIME: 1356 to 1406 ROOM: [place] [address] OT 6 Clicks Score: 14 DISCHARGE RECOMMENDATIONS Unable to determine Anticipated Discharge Needs: Undetermined ASSESSMENT Response to Therapy Interventions: Cognitive Deficits, Good Participation in Activities, Needs Frequent Redirection or Reinstruction, Requires Additional Time to Complete Activities Seated in chair ~3 hrs upon OT arrival, mod Ax1 to transfer back to bed. VSS throughout. Continue OT POC PRECAUTIONS Fall Risk, Lines/Tubes/Drains CURRENT HOSPITAL COURSE presented to OSH after found down at home, with symptoms of malaise, swelling x 1 week. 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, admitted 05/10, treated with transfusions, CTX, and NAC, transferred to [facility] 05/11 for further care, possible OLT workup Relevant Past Medical History: HTN, Type II DM, HLD, ransaminitis, ETOH Abuse, Tobacco Abuse, Pre-diabetes HOME LIVING Patient Lives With: Family (, 22 year old son and 15 year old daughter) Assistance Available: 24-Hour ( works, son at home 24 hr) Entry To Home: Stairs Number Of Stairs Into Home: 2 Number Of Stairs To Bed/Bath: 13 Tub/Shower Type: Walk in shower Laundry: On main floor, pt completes Equipment Owned: (None) PRIOR FUNCTIONAL LEVEL Within Functional Limits IND w/ amb no AD, ADLs and iADLs. (-) driving/working SUBJECTIVE Agreeable to OT COGNITION Communication Deficits: Delayed Response Orientation Deficits: (Slight confusion, AANDOX3) Responsiveness: Alert, Awake, Delayed Responses to Stimuli Follows Commands: 2-step Commands, With Repetition, With Increased Time, Cueing Needed Cueing to Follow Commands: Moderate Attention Deficits: Distractible, Divided, Redirected with Cues Memory Deficits: Short Term, Recall of Recent Events Executive Function Deficits: Sequencing, Judgement, Insight to Deficits, Problem Solving, Motor Planning, Safety Awareness Cog 6 Start of Session Total Points (Max Score = 24): 20 (05/12/24) Cog 6 End of Session Total Points (Max Score = 24): 20 (05/12/24) Short Blessed Final Score: 14 (05/12/24) Confusion Assessment Method (CAM - ICU Score): Negative (05/12/24) Cognitive Activities Performed: Reorientation, environmental stim, ADL engagement, 2 step commands, memory/recall, problem solving, sequencing THERAPY DIAGNOSIS Reduced mobility-other, Decreased activities of daily living (ADL), Muscle Weakness (generalized), Signs and Symptoms Involving Cognitive Functions and Awareness TREATMENT INTERVENTIONS Therapeutic Activity (67315) Timed Code Treatment (minutes): 10 Skilled Treatment Time (minutes): 10 TRAINING AND EDUCATION PROVIDED Activity Adaptation/Compensato ry Strategies, Attention Diversion Techniques, Bed Mobility, Benefits of In-Hospital Mobility, Cognitive Skills, Cognitive Prosthetics, Cognitive Stimulation Activities, Command Following, Community Integration Skills, Coping Skills/Resiliency, Delirium Reduction Techniques, Energy Conservation, Environmental Modification, Executive Functions/Problem Solving, Expected Functional Level, Functional Mobility Involving ADLs, Grooming Tasks, Home Set-up/Modifications, Identification of Systems of Support, Insight into Deficits, Life Roles/Routines/Habits , Memory/Attention, Orientation, Positioning, Role of Occupational Therapy, Safety/Judgment, Sitting Balance to Improve [place] with ADLs/Self-Care, Standing Balance to Improve [place] with ADLs/Self-Care, Transfer - Sit to Stand, Transfer - Bed to Chair, Treatment Protocol, Visual Scanning/Attention Activities THERAPEUTIC SKILLS USED Activity Dosing, Assessment of Tolerance Including Vitals Response to Activity, Cues for Sequencing/Proper Technique for Activity, Cuing Tactile, Cuing Verbal, Cuing Visual, Management of Critical Lines, Tubes and/or Drains, Physical Assist, Teach-Back for Education, Therapeutic Use of Self FUNCTIONAL STATUS Activities of Daily Living Assist Level Additional Information Feeding Set Up Grooming Set Up Washes face seated in chair w/ set up Bathing Upper Body Moderate Assistance Bathing Lower Body Maximal Assistance Dressing Upper Body Moderate Assistance Dressing Lower Body Total Assistance Toileting Total Assistance Mobility Assist Level Additional Information Bed Mobility Rolling: Maximal Assistance Supine To Sit: Moderate Assistance Sit To Supine: Maximal Assistance Sit to Stand Moderate Assistance HHAx1 Stand to Sit Moderate Assistance Bed to Chair Moderate Assistance Bed To Chair Transfer Type: Stand Pivot Bed To Chair Transfer Equipment: Gait Belt HHAx1 T (more content not included)... Normal [facility] THERAPY NT HNO ID: [id number] Author: CAIT HARRINGTON, OT/L Service: Occupational Therapy Author Type: Occupational Therapist Type: Therapy (PT/OT/Speech/Resp) Filed: 05/12/2024 14:19 Note Text: Occupational Therapy Evaluation Summary SERVICE DATE: 05/12/2024 SERVICE TIME: 1356 to 1406 ROOM: [place] [address] OT 6 Clicks Score: 14 DISCHARGE RECOMMENDATIONS Unable to determine Anticipated Discharge Needs: Undetermined ASSESSMENT Response to Therapy Interventions: Cognitive Deficits, Good Participation in Activities, Needs Frequent Redirection or Reinstruction, Requires Additional Time to Complete Activities RN approved OT session, VSS throughout. Patient is slightly confused, AANDOx3, CAM(-), able to follow 2 step commands and demo's mod cog deficits. Mod Ax1 to transfer to chair and requires frequent redirection to task. Continued OT recommended to maximize functional outcomes. 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 (-) driving/working SUBJECTIVE Agreeable to OT COGNITION Communication Deficits: Delayed Response Orientation Deficits: (Slight confusion, AANDOX3) Responsiveness: Alert, Awake, Delayed Responses to Stimuli Follows Commands: 2-step Commands, With Repetition, With Increased Time, Cueing Needed Cueing to Follow Commands: Moderate Attention Deficits: Distractible, Divided, Redirected with Cues Memory Deficits: Short Term, Recall of Recent Events Executive Function Deficits: Sequencing, Judgement, Insight to Deficits, Problem Solving, Motor Planning, Safety Awareness Cog 6 Start of Session Total Points (Max Score = 24): 20 (05/12/24) Cog 6 End of Session Total Points (Max Score = 24): 20 (05/12/24) Short Blessed Final Score: 14 (05/12/24) Based on clinical research findings from the Memory and Aging Project, the following cut points may be considered: 0 - 4 Normal Cognition 5 - 9 Questionable Impairment (evaluate for early dementing disorder) 10 or more Impairment Consistent with Dementia (evaluate for dementing disorder) Confusion Assessment Method (CAM - ICU Score): Negative (05/12/24) Cognitive Activities Performed: Reorientation, environmental stim, ADL engagement, 2 step commands, memory/recall, problem solving, sequencing THERAPY DIAGNOSIS Reduced mobility-other, Decreased activities of daily living (ADL), Muscle Weakness (generalized), Signs and Symptoms Involving Cognitive Functions and Awareness TREATMENT INTERVENTIONS Therapeutic Activity (61817) Timed Code Treatment (minutes): 10 Skilled Treatment Time (minutes): 10 TRAINING AND EDUCATION PROVIDED Activity Adaptation/Compensato ry Strategies, Attention Diversion Techniques, Bed Mobility, Benefits of In-Hospital Mobility, Cognitive Skills, Cognitive Prosthetics, Cognitive Stimulation Activities, Command Following, Community Integration Skills, Coping Skills/Resiliency, Delirium Reduction Techniques, Energy Conservation, Environmental Modification, Executive Functions/Problem Solving, Expected Functional Level, Functional Mobility Involving ADLs, Grooming Tasks, Home Set-up/Modifications, Identification of Systems of Support, Insight into Deficits, Life Roles/Routines/Habits , Memory/Attention, Orientation, Positioning, Role of Occupational Therapy, Safety/Judgment, Sitting Balance to Improve [place] with ADLs/Self-Care, Standing Balance to Improve [place] with ADLs/Self-Care, Transfer - Sit to Stand, Transfer - Bed to Chair, Treatment Protocol, Visual Scanning/Attention Activities THERAPEUTIC SKILLS USED Activity Dosing, Assessment of Tolerance Including Vitals Response to Activity, Cues for Sequencing/Proper Technique for Activity, Cuing Tactile, Cuing Verbal, Cuing Visual, Management of Critical Lines, Tubes and/or Drains, Physical Assist, Teach-Back for Education, Therapeutic Use of Self FUNCTIONAL STATUS Activities of Daily Living Assist Level Additional Information Feeding Set Up Grooming Set Up Washes face seated in chair w/ set up Bathing Upper Body Moderate Assistance Bathing Lower Body Maximal Assistance Dressing Upper Body Moderate Assistance Dressing Lower Body Total Assistance Toileting Total Assistance Mob (more content not included)... Normal [facility] Urinalysis complete panel (U )on 05-12-2024 BACTERIA UL 1000.[address] [facility] Comment on above: Order Comment: Speci men Type: FLUID SPECIMEN Ordering Facility: [facility] Address: [address] [place] [address] Performed By: #### C CBF, [id number] #### [facility] CLIA [id number] [address] [place] [address] [place] [address] [place] Bilirubin Ql (U) 3+ Abnormal Negative [facility] Comment on above: Order Comment: Speci men Type: FLUID SPECIMEN Ordering Facility: [facility] Address: [address] [place] [address] Result Comment: Sugg est correlation with clinical findings and serum bilirubin if clinically indicated. Performed By: #### C CBF, [id number] #### [facility] CLIA [id number] [address] [place] [address] [place] Clarity (Unsp spec) Cloudy Abnormal Clear [facility] Comment on above: Order Comment: Speci men Type: FLUID SPECIMEN Ordering Facility: [facility] Address: [address] [place] [address] Performed By: #### C CBF, [id number] #### [facility] CLIA [id number] [address] [place] [address] [place] Color (U) Dark Yellow Abnormal Yellow [facility] Comment on above: Order Comment: Speci men Type: FLUID SPECIMEN Ordering Facility: [facility] Address: [address] [place] [address] Performed By: #### C CBF, [id number] #### [facility] CLIA [id number] [address] [place] [address] [place] Epithelial cells LM.HPF (Urine sed) [#/Area] None Seen Normal [facility] Comment on above: Order Comment: Speci men Type: FLUID SPECIMEN Ordering Facility: [facility] Address: [address] [place] [address] Performed By: #### C CBF, [id number] #### [facility] CLIA [id number] [address] [place] [address] [place] Glucose Test strip (U) [Mass/Vol] Negative Normal Negative [facility] Comment on above: Order Comment: Speci men Type: FLUID SPECIMEN Ordering Facility: [facility] Address: [address] [place] [address] Performed By: #### C CBF, [id number] #### [facility] CLIA [id number] [address] [place] [address] [place] Hemoglobin Ql (U) 3+ Abnormal Negative [facility] Comment on above: Order Comment: Speci men Type: FLUID SPECIMEN Ordering Facility: [facility] Address: [address] [place] [address] Performed By: #### C CBF, [id number] #### [facility] CLIA [id number] [address] [place] [address] [place] Hyaline casts (Urine sed) [#/Area] 4-10 /LPF Abnormal 0 /LPF [facility] Comment on above: Order Comment: Speci men Type: FLUID SPECIMEN Ordering Facility: [facility] Address: [address] [place] [address] Performed By: #### C CBF, [id number] #### [facility] CLIA [id number] [address] [place] [address] [place] Ketones Ql (U) Negative Normal Negative [facility] Comment on above: Order Comment: Speci men Type: FLUID SPECIMEN Ordering Facility: [facility] Address: [address] [place] [address] Performed By: #### C CBF, [id number] #### [facility] CLIA [id number] [address] [place] [address] [place] Leukocyte esterase Test strip Ql (U) 2+ Abnormal Negative [facility] Comment on above: Order Comment: Speci men Type: FLUID SPECIMEN Ordering Facility: [facility] Address: [address] [place] [address] Performed By: #### C CBF, [id number] #### [facility] CLIA [id number] [address] [place] [address] [place] Nitrite Ql (U) Negative Normal Negative [facility] Comment on above: Order Comment: Speci men Type: FLUID SPECIMEN Ordering Facility: [facility] Address: [address] [place] [address] Performed By: #### C CBF, [id number] #### [facility] CLIA [id number] [address] [place] [address] [place] pH (U) 5.5 [pH] Normal <8.5 [facility] Comment on above: Order Comment: Speci men Type: FLUID SPECIMEN Ordering Facility: [facility] Address: [address] [place] [address] Performed By: #### C CBF, [id number] #### [facility] CLIA [id number] [address] [place] [address] [place] Protein (U) [Mass/Vol] 2+ Abnormal Negative [facility] Comment on above: Order Comment: Speci men Type: FLUID SPECIMEN Ordering Facility: [facility] Address: [address] [place] [address] Performed By: #### C CBF, [id number] #### [facility] CLIA [id number] [address] [place] [address] [place] RBC LM.HPF (Urine sed) [#/Area] /[HPF] Abnormal 0-2 /HPF [facility] Comment on above: Order Comment: Speci men Type: FLUID SPECIMEN Ordering Facility: [facility] Address: [address] [place] [address] Performed By: #### C CBF, [id number] #### [facility] CLIA [id number] [address] [place] [address] [place] Specific gravity (U) [Rel density] 1.021 Normal 1.005-1.030 [facility] Comment on above: Order Comment: Speci men Type: FLUID SPECIMEN Ordering Facility: [facility] Address: [address] [place] [address] Performed By: #### C CBF, [id number] #### [facility] CLIA [id number] [address] [place] [address] [place] Urobilinogen Ql (U) 1.0 EU/dL Normal 0.2-1.0 EU/dL [facility] Comment on above: Order Comment: Speci men Type: FLUID SPECIMEN Ordering Facility: [facility] Address: [address] [place] [address] Performed By: #### C CBF, [id number] #### [facility] CLIA [id number] [address] [place] [address] [place] WBC LM.HPF (Urine sed) [#/Area] /[HPF] Abnormal 0-5 /HPF [facility] Comment on above: Order Comment: Speci men Type: FLUID SPECIMEN Ordering Facility: [facility] Address: [address] [place] [address] Performed By: #### C CBF, [id number] #### [facility] CLIA [id number] [address] [place] [address] [place] Yeast.budding LM.HPF (Urine sed) [#/Area] Present Abnormal None Seen [facility] Comment on above: Order Comment: Speci men Type: FLUID SPECIMEN Ordering Facility: [facility] Address: [address] [place] [address] Performed By: #### C CBF, [id number] #### [facility] CLIA [id number] [address] [place] [address] [place] XR CHEST 1V FRONTAL PORTon 0 05-12-2024 XR CHEST 1V FRONTAL PORT * * *Final Report* * * DATE OF EXAM: May 12 2024 7:31AM CARMELITA [id number] - XR CHEST 1V FRONTAL PORT / PROCEDURE REASON: Shortness of breath * * * * Physician Interpretation * * * * CHEST RADIOGRAPH (PORTABLE SINGLE VIEW AP) Exam Date/Time: 05/12/2024 7:31 AM Indications: Shortness of breath MQ: [id number] Comparison: None RESULTS: See Impression. IMPRESSION: Lines, Tubes, and Devices: None Lungs and Pleura: Scattered opacities probably atelectasis. No pneumothorax. Cardiomediastinal silhouette: Within normal limits. Outreach Manager: PSCB Transcribe Date/Time: May 12 2024 8:48A Dictated by : SYD QUIROZ MD This examination was interpreted and the report reviewed and electronically signed by: SYD QUIROZ MD on May 12 2024 8:49AM EST [id number] N Normal [facility] AFP SerPl-mCncon 05-11-2024 AFP [Mass/Vol] 3.19 ng/mL Normal <9.00 [facility] Comment on above: Order Comment: Kofi wright Type: FLUID SPECIMEN Ordering Facility: [facility] Address: [address] [place] [address] Result Comment: The Alpha-Fetoprotein test was performed using the Genomic Expression DxI immunoenzymatic assay. Results obtained with different assay methods or kits cannot be used interchangeably. Performed By: #### C CBF, [id number] #### [facility] CLIA [id number] [address] [place] [address] [place] APAP SerPl-mCncon 05-11-2024 Acetaminophen [Mass/Vol] ug/mL Low 10-30 [facility] Comment on above: Order Comment: Kofi wright Type: VENOUS BLOOD SPECIMEN Ordering Facility: [facility] Address: [address] [place] [address] Result Comment: Toxi c > 150 ug/mL 4 hours post ingestion The Lora Bland nomogram can be used to estimate the probability of hepatotoxicity via the relationship of plasma acetaminophen concentration to the post ingestion interval. (Leela. Pediatrics. 1975. 55:871 to 876 and Lora et al. [employer] Sander Med. 1981. 141:380 to 385). Reference ranges and high/low indicator flags are provided as general guidelines only. The treating physician must determine appropriate target levels/dosing based on the specific clinical situation. Performed By: #### 2 4344-4 #### [facility] CLIA [id number] [address] [place] [address] [place] Albumin Fld-mCncon 4 Albumin (Body fld) [Mass/Vol] 1.0 g/dL Normal See Comment [facility] Comment on above: Order Comment: Kofi wright Type: VENOUS BLOOD SPECIMEN Ordering Facility: [facility] Address: [address] [place] [address] Result Comment: Body Fluid Albumin may be used in classifying ascitic fluid into high-gradient or low-gradient fluids as determined by the serum-ascites albumin gradient, which is calculated as (serum albumin) - (ascites albumin). The serum and fluid specimens should be drawn with a minimal intervening time interval to appropriately analyze the gradient. Gradients greater than or equal to 1.1 g/dL are considered high, which reflects a high hydrostatic pressure, commonly caused by: cirrhosis or other processes generating portal hypertension. In samples where gradients are less than 1.1 g/dL, ascites generated from conditions without portal hypertension should be considered. Reference: 1. CLSI. Analysis of Body Fluids in Clinical Chemistry Approved Guideline. CLSI document C49A. SLIM Rm: Clinical Laboratory Standards [place]: 2007. 2. Michelle SALAZAR. Serum to ascites albumin gradient. UpToDate. 2015. Accessed on November 25, 2015. Performed By: #### 2 4344-4 #### [facility] CLIA [id number] [address] [place] [address] [place] Fluid Nom (Body fld) Abdomen Normal [facility] Comment on above: Order Comment: Kofi wright Type: VENOUS BLOOD SPECIMEN Ordering Facility: [facility] Address: [address] [place] [address] Performed By: #### 2 4344-4 #### [facility] CLIA [id number] [address] [place] [address] [place] Order Comment: Kofi wright Type: FLUID SPECIMENOrdering Facility: [facility] Address: [address] [place] [address] Performed By: #### 1 795-4, 99944-6, 2881-1 ####[facility] [id number] [address] [place] Ammonia Plas-sCncon 05-11-20 24 Ammonia (P) [Moles/Vol] 43 umol/L Normal 11-51 [facility] Comment on above: Order Comment: Speci men Type: VENOUS BLOOD SPECIMEN Ordering Facility: [facility] Address: [address] [place] [address] Performed By: #### 2 4344-4 #### [facility] CLIA [id number] [address] [place] [address] [place] Amylase Fld-cCncon 4 Amylase (Body fld) [Catalytic activity/Vol] 11 U/L Normal See Comment [facility] Comment on above: Order Comment: Speci men Type: FLUID SPECIMENOrdering Facility: [facility] Address: [address] [place] [address] Result Comment: PLEU RAL FLUIDS: Amylase measurement in pleural fluid is considered a useful test for detecting amylase-rich pleural effusions, which may be caused by exudative conditions associated with pancreatitis, esophageal rupture, malignancy, pneumonia, and liver cirrhosis. A ratio of pleural fluid amylase to a concurrent serum amylase >1 is defined as an amylase-rich pleural effusion. PERITONEAL FLUIDS AND DRAINAGE FLUIDS: Pancreatic damage causes extravasation of amylase from the exocrine cells into the peritoneal space. In cases of pancreatitis, fluid amylase should be at least several-fold times higher in fluid of pancreatic origin compared to concurrent serum amylase values. PANCREATIC CYST FLUID: Pancreatic cyst fluid amylase may aid in characterizing tumors and should be interpreted along with other clinical and laboratory information. References: 1. Christiane CAMARENA, Buddy Tovar. Body fluid analysis: clinical utility and applicability of published studies to guide interpretation of todays laboratory testing in serous fluids. Crit Rev Clin Lab Sci, 2013;50(4-5):107-124. 2. CLSI. Analysis of Body Fluids in Clinical Chemistry; Approved Guideline. CLSI document C49-A. SLIM Rm: Clinical Laboratory Standards [place]; 2007. 3. Rissa HOLT, Rajiv RC, Jaiden DJ. Use of cyst fluid CEA, CA19-9, and amylase for evaluation of pancreatic lesions. Clinical Biochemistry. 2009;42:8108-7286. Performed By: #### 1 795-4, 41202-2, 2881-1 ####[facility] [id number] [place] [address] [place] BODY FLUID CELL COUNTon 04-15 Clarity (Unsp spec) Not Indicated Normal Clear Cl [facility] Comment on above: Order Comment: Speci men Type: FLUID SPECIMEN Ordering Facility: [facility] Address: [address] [place] [address] Performed By: #### C CBF, [id number] #### [facility] CLIA [id number] [address] [place] [address] [place] Color (Body fld) Not Indicated Normal Yellow [facility] Comment on above: Order Comment: Speci men Type: FLUID SPECIMEN Ordering Facility: [facility] Address: [address] [place] [address] Performed By: #### C CBF, [id number] #### [facility] CLIA [id number] [address] [place] [address] [place] RBC Manual cnt (Body fld) [#/Vol] <2000 Normal <2000 [facility] Comment on above: Order Comment: Speci men Type: FLUID SPECIMEN Ordering Facility: [facility] Address: [address] [place] [address] Performed By: #### C CBF, [id number] #### [facility] CLIA [id number] [address] [place] [address] [place] Specimen source Nom (Body fld) Abdomen Normal [facility] Comment on above: Order Comment: Speci men Type: FLUID SPECIMEN Ordering Facility: [facility] Address: [address] [place] [address] Performed By: #### C CBF, [id number] #### [facility] CLIA [id number] [address] [place] [address] [place] WBC Manual cnt (Body fld) [#/Vol] 310 /uL Normal <1000 [facility] Comment on above: Order Comment: Speci men Type: FLUID SPECIMEN Ordering Facility: [facility] Address: [address] [place] [address] Performed By: #### C CBF, [id number] #### [facility] CLIA [id number] [address] [place] [address] [place] Basic metabolic 2000 panelon 05-11-2024 Anion gap [Moles/Vol] 23 mmol/L High 8-15 [facility] Comment on above: Order Comment: Speci men Type: VENOUS BLOOD SPECIMEN Ordering Facility: [facility] Address: [address] [place] [address] Performed By: #### 2 4344-4 #### [facility] CLIA [id number] [address] [place] [address] [place] Calcium [Mass/Vol] 11.2 mg/dL High 8.5-10.2 [facility] Comment on above: Order Comment: Speci men Type: VENOUS BLOOD SPECIMEN Ordering Facility: [facility] Address: [address] [place] [address] Performed By: #### 2 4344-4 #### [facility] CLIA [id number] [address] [place] [address] [place] Chloride [Moles/Vol] 86 mmol/L Low 98-107 [facility] Comment on above: Order Comment: Speci men Type: VENOUS BLOOD SPECIMEN Ordering Facility: [facility] Address: [address] [place] [address] Performed By: #### 2 4344-4 #### [facility] CLIA [id number] [address] [place] [address] [place] CO2 [Moles/Vol] 25 mmol/L Normal 22-30 [facility] Comment on above: Order Comment: Speci men Type: VENOUS BLOOD SPECIMEN Ordering Facility: [facility] Address: [address] [place] [address] Performed By: #### 2 4344-4 #### [facility] CLIA [id number] [address] [place] [address] [place] Creatinine [Mass/Vol] 2.16 mg/dL High 0.58-0.96 [facility] Comment on above: Order Comment: Speci men Type: VENOUS BLOOD SPECIMEN Ordering Facility: [facility] Address: [address] [place] [address] Result Comment: Resu lt may be falsely decreased due to interference from icterus. Performed By: #### 2 4344-4 #### [facility] CLIA [id number] [address] [place] [address] [place] Creatinine and Glomerular filtration rate.predicted panel (S/P/Bld) 28 mL/min/1.73m??? Low >=60 [facility] Comment on above: Order Comment: Vilmai men Type: VENOUS BLOOD SPECIMEN Ordering Facility: [facility] Address: [address] [place] [address] Result Comment: Destinee mated Glomerular Filtration Rate (eGFR) is calculated using the 2020 CKD-EPI creatinine equation. This equation utilizes serum creatinine, sex, and age as parameters. The creatinine assay has traceable calibration to isotope dilution-mass spectrometry. Refer to KDIGO guidelines for clinical interpretation. In patients with unstable renal function, e.g. those with acute kidney injury, the eGFR may not accurately reflect actual GFR. Performed By: #### 2 4344-4 #### [facility] CLIA [id number] [address] [place] [address] [place] Glucose [Mass/Vol] 107 mg/dL High 74-99 [facility] Comment on above: Order Comment: Speci men Type: VENOUS BLOOD SPECIMEN Ordering Facility: [facility] Address: [address] [place] [address] Result Comment: The [place] [employer] (ADA) provides guidance for cutoff values for fasting glucose and random glucose. The ADA defines fasting as no caloric intake for at least 8 hours. Fasting plasma glucose results between 100 to 125 mg/dL indicate increased risk for diabetes (prediabetes). Fasting plasma glucose results greater than or equal to 126 mg/dL meet the criteria for diagnosis of diabetes. In the absence of unequivocal hyperglycemia, results should be confirmed by repeat testing. In a patient with classic symptoms of hyperglycemia or hyperglycemic crisis, random plasma glucose results greater than or equal to 200 mg/dL meet the criteria for diagnosis of diabetes. Reference: Standards of Medical Care in Diabetes 2016, [place] [employer]. Diabetes Care. 2016.39(Suppl 1). Performed By: #### 2 4344-4 #### [facility] CLIA [id number] [address] [place] [address] [place] Potassium [Moles/Vol] 5.3 mmol/L High 3.7-5.1 [facility] Comment on above: Order Comment: Kofi wright Type: VENOUS BLOOD SPECIMEN Ordering Facility: [facility] Address: [address] [place] [address] Performed By: #### 2 4344-4 #### [facility] CLIA [id number] [address] [place] [address] [place] Sodium [Moles/Vol] 134 mmol/L Low 136-144 [facility] Comment on above: Order Comment: Kofi wright Type: VENOUS BLOOD SPECIMEN Ordering Facility: [facility] Address: [address] [place] [address] Performed By: #### 2 4344-4 #### [facility] CLIA [id number] [address] [place] [address] [place] Urea nitrogen [Mass/Vol] 95 mg/dL High 7-21 [facility] Comment on above: Order Comment: Vilmai men Type: VENOUS BLOOD SPECIMEN Ordering Facility: [facility] Address: [address] [place] [address] Performed By: #### 2 4344-4 #### [facility] CLIA [id number] [address] [place] [address] [place] CBC panel Auto (Bld)on 05-11 Erythrocyte distribution width (RBC) [Ratio] 21.1 % High 11.5-15.0 [facility] Comment on above: Order Comment: Speci men Type: FLUID SPECIMEN Ordering Facility: [facility] Address: [address] [place] [address] Performed By: #### C CBF, [id number] #### [facility] CLIA [id number] [address] [place] [address] [place] Hematocrit (Bld) [Volume fraction] 20.0 % Low 36.0-46.0 [facility] Comment on above: Order Comment: Speci men Type: FLUID SPECIMEN Ordering Facility: [facility] Address: [address] [place] [address] Performed By: #### C CBF, [id number] #### [facility] CLIA [id number] [address] [place] [address] [place] Hemoglobin (Bld) [Mass/Vol] 6.7 g/dL Low 11.5-15.5 [facility] Comment on above: Order Comment: Speci men Type: FLUID SPECIMEN Ordering Facility: [facility] Address: [address] [place] [address] Performed By: #### C CBF, [id number] #### [facility] CLIA [id number] [address] [place] [address] [place] MCH (RBC) [Entitic mass] 33.8 pg Normal 26.0-34.0 [facility] Comment on above: Order Comment: Speci men Type: FLUID SPECIMEN Ordering Facility: [facility] Address: [address] [place] [address] Performed By: #### C CBF, [id number] #### [facility] CLIA [id number] [address] [place] [address] [place] MCHC (RBC) [Mass/Vol] 33.5 g/dL Normal 30.5-36.0 [facility] Comment on above: Order Comment: Speci men Type: FLUID SPECIMEN Ordering Facility: [facility] Address: [address] [place] [address] Performed By: #### C CBF, [id number] #### [facility] CLIA [id number] [address] [place] [address] [place] MCV (RBC) [Entitic vol] 101.0 fL High 80.0-100.0 [facility] Comment on above: Order Comment: Speci men Type: FLUID SPECIMEN Ordering Facility: [facility] Address: [address] [place] [address] Performed By: #### C CBF, [id number] #### [facility] CLIA [id number] [address] [place] [address] [place] Nucleated RBC (Bld) [#/Vol] 0.19 10*3/uL High <0.01 [facility] Comment on above: Order Comment: Speci men Type: FLUID SPECIMEN Ordering Facility: [facility] Address: [address] [place] [address] Performed By: #### C CBF, [id number] #### [facility] CLIA [id number] [address] [place] [address] [place] Platelet mean volume (Bld) [Entitic vol] 11.0 fL Normal 9.0-12.7 [facility] Comment on above: Order Comment: Speci men Type: FLUID SPECIMEN Ordering Facility: [facility] Address: [address] [place] [address] Performed By: #### C CBF, [id number] #### [facility] CLIA [id number] [address] [place] [address] [place] Platelets (Bld) [#/Vol] 115 10*3/uL Low 150-400 [facility] Comment on above: Order Comment: Speci men Type: FLUID SPECIMEN Ordering Facility: [facility] Address: [address] [place] [address] Performed By: #### C CBF, [id number] #### [facility] CLIA [id number] [address] [place] [address] [place] RBC (Bld) [#/Vol] 1.98 10*6/uL Low 3.90-5.20 [facility] Comment on above: Order Comment: Speci men Type: FLUID SPECIMEN Ordering Facility: [facility] Address: [address] [place] [address] Performed By: #### C CBF, [id number] #### [facility] CLIA [id number] [address] [place] [address] [place] WBC (Bld) [#/Vol] 13.14 10*3/uL High 3.70-11.00 [facility] Comment on above: Order Comment: Speci men Type: FLUID SPECIMEN Ordering Facility: [facility] Address: [address] [place] [address] Performed By: #### C CBF, [id number] #### [facility] CLIA [id number] [address] [place] [address] [place] Erythrocyte distribution width (RBC) [Ratio] 21.0 % High 11.5-15.0 [facility] Comment on above: Order Comment: Speci men Type: VENOUS BLOOD SPECIMEN Ordering Facility: [facility] Address: [address] [place] [address] Performed By: #### 2 4344-4 #### [facility] CLIA [id number] [address] [place] [address] [place] Hematocrit (Bld) [Volume fraction] 23.3 % Low 36.0-46.0 [facility] Comment on above: Order Comment: Speci men Type: VENOUS BLOOD SPECIMEN Ordering Facility: [facility] Address: [address] [place] [address] Performed By: #### 2 4344-4 #### [facility] CLIA [id number] [address] [place] [address] [place] Hemoglobin (Bld) [Mass/Vol] 8.1 g/dL Low 11.5-15.5 [facility] Comment on above: Order Comment: Speci men Type: VENOUS BLOOD SPECIMEN Ordering Facility: [facility] Address: [address] [place] [address] Performed By: #### 2 4344-4 #### [facility] CLIA [id number] [address] [place] [address] [place] MCH (RBC) [Entitic mass] 35.1 pg High 26.0-34.0 [facility] Comment on above: Order Comment: Speci men Type: VENOUS BLOOD SPECIMEN Ordering Facility: [facility] Address: [address] [place] [address] Performed By: #### 2 4344-4 #### [facility] CLIA [id number] [address] [place] [address] [place] MCHC (RBC) [Mass/Vol] 34.8 g/dL Normal 30.5-36.0 [facility] Comment on above: Order Comment: Speci men Type: VENOUS BLOOD SPECIMEN Ordering Facility: [facility] Address: [address] [place] [address] Performed By: #### 2 4344-4 #### [facility] CLIA [id number] [address] [place] [address] [place] MCV (RBC) [Entitic vol] 100.9 fL High 80.0-100.0 [facility] Comment on above: Order Comment: Speci men Type: VENOUS BLOOD SPECIMEN Ordering Facility: [facility] Address: [address] [place] [address] Performed By: #### 2 4344-4 #### [facility] CLIA [id number] [address] [place] [address] [place] Nucleated RBC (Bld) [#/Vol] 0.33 10*3/uL High <0.01 [facility] Comment on above: Order Comment: Speci men Type: VENOUS BLOOD SPECIMEN Ordering Facility: [facility] Address: [address] [place] [address] Performed By: #### 2 4344-4 #### [facility] CLIA [id number] [address] [place] [address] [place] Platelet mean volume (Bld) [Entitic vol] 10.8 fL Normal 9.0-12.7 [facility] Comment on above: Order Comment: Speci men Type: VENOUS BLOOD SPECIMEN Ordering Facility: [facility] Address: [address] [place] [address] Performed By: #### 2 4344-4 #### [facility] CLIA [id number] [address] [place] [address] [place] Platelets (Bld) [#/Vol] 146 10*3/uL Low 150-400 [facility] Comment on above: Order Comment: Speci men Type: VENOUS BLOOD SPECIMEN Ordering Facility: [facility] Address: [address] [place] [address] Performed By: #### 2 4344-4 #### [facility] CLIA [id number] [address] [place] [address] [place] RBC (Bld) [#/Vol] 2.31 10*6/uL Low 3.90-5.20 [facility] Comment on above: Order Comment: Speci men Type: VENOUS BLOOD SPECIMEN Ordering Facility: [facility] Address: [address] [place] [address] Performed By: #### 2 4344-4 #### [facility] CLIA [id number] [address] [place] [address] [place] WBC (Bld) [#/Vol] 15.31 10*3/uL High 3.70-11.00 [facility] Comment on above: Order Comment: Speci men Type: VENOUS BLOOD SPECIMEN Ordering Facility: [facility] Address: [address] [place] [address] Performed By: #### 2 4344-4 #### [facility] CLIA [id number] [address] [place] [address] [place] CK SerPl-cCncon 05-11-2024 CK [Catalytic activity/Vol] 34 U/L Low 42-196 [facility] Comment on above: Order Comment: Speci men Type: BLOOD SPECIMENOrdering Facility: [facility] Address: [address] [place] [address] Performed By: #### L IPNF, 2157-6, 2064-4, 66052-4 ####[facility] [id number] [place] [address] [place] CNPNon 05-11-2024 CNPN Telephone (TXCTMN) CIELO MCFARLANE ([id number]) 1975 F Date Time Provider Department 05/11/24 AUBREY CARDONA TXCTMN During your visit today, we recorded the following information about you: Aubrey Cardona RN 05/11/2024 7:05 PM Signed The following information has been provided/discussed with the patient/family during Shared Medical Appointment education class: Informed Consent for Organ Transplant Program Participation version March 02, 2023. SRTR information provided and questions answered. Informed patient to call nursing staff development coordinator with any questions. UNOS information regarding multiple listings for organ transplantation Evaluation process including presentation to selection committee and listing criteria Surgical procedure, including post-operative management, hospitalization, immunosuppressive medications and their side effects (including the risk for hypertension, diabetes, kidney problems and cancers) and usp follow up after transplant. Possibility of recurrent disease discussed with patient. Patient was advised that if they choose not to proceed with transplant, alternative treatment will be provided Potential medical or psychosocial risks Discussed organ donor risk factors including potential risk of developing transmissible disease including but not limited to HIV, hepatitis B and C, malaria, and malignancy. Patient's right to decline such offers for transplant was also addressed Patient was provided with [facility] information sheet regarding transplantation of Hepatitis C viremic organs into Hepatitis C negative recipients. Risks and benefits of hepatitis C transplant and treatment were discussed. Patient was advised that he/she can refuse transplantation at any time prior to transplant without any penalty. Patient advised that transplants not performed in a medicare-approved hospital may negatively affect payment for medication coverage by Medicare Part B. Text/Email Communication Consent Cielo Mcfarlane has given a verbal authorization on May 11, 2024 for health information to be sent via unencrypted email or text messages. Cielo Mcfarlane has expressed understanding that unencrypted email (or text) messages and any attachments are at risk and could potentially be read by a third democrat when sent through the internet (or cellular phone) and desires to receive his protected health information by unencrypted email (or text). INFORMED CONSENT Cielo Mcfarlane Medical Record: [id number] Informed consent for Organ Transplant Program Participation Informed Consent for Organ Transplant Program Participation version March 02, 2023 was provided to patient. The risks, benefits, alternatives and anticipated outcomes of the Organ Transplant Program Participation, and tasks of the personnel to be involved were discussed with the patient. The patient consents to participation in the Organ Transplant Program. The patient was provided an opportunity to ask questions and have questions answered. Aubrey Cardona RN May 11, 2024 Allergies As of Date: 05/11/2024 (No Known Allergies) Date Reviewed: 05/11/2024 Reviewed by: Kelly Covington RN - Fully Assessed Reason for Visit: Pt. Ed ( Informed Consent) [970] Facility-Administered Medications as of 05/11/2024 - potassium chloride 40 mEq oral powder (KLOR-CON) - magnesium sulfate iv piggyback in sterile water 2 g 50 mL - phosphorus 500 mg tab(s) (K PHOS NEUTRAL) - heparin 5,000 Units injection - NaCl 0.9% iv flush bag - acetaminophen 325 mg tab(s) (TYLENOL) - insulin regular human injection (short acting) - insulin regular 100 units in NaCl 0.9% 100 mL - ICU NOMOGRAM - insulin regular human 2-10 Units bolus from bag - dextrose 15 gram/32 mL 15 g (TRUEPLUS) - glucagon 1 mg injection - dextrose 10% iv bolus - sodium chloride 0.9 % (flush) 2-10 mL (BD POSIFLUSH) - perflutren lipid microspheres 1.1 mg/mL 1.3 mL injection (DEFINITY) - pantoprazole 40 mg injection (PROTONIX) - cefTRIAXone 2 g in D5W 100 mL Vial-Bag (ROCEPHIN) - polyethylene glycol 3350 17 g packet - dextrose 5% in water iv flush bag - acetylcysteine 4,720 mg in D5W 500 mL (ACETADOTE) - acetylcysteine 9,460 mg in D5W 1,000 mL (ACETADOTE) - mupirocin 2 % 0.5 g nasal ointment (BACTROBAN) Problem List As Of Date 05/11/2024 Noted Resolved Alcoholic cirrhosis (HCC) [K70.30] 05/11/2024 Hepatic encephalopathy (HCC) [K76.82] 05/11/2024 Acute on chronic alcoholic liver disease (HCC) *05/11/2024 LEAH (acute kidney injury) (HCC) [N17.9] 05/11/2024 Encephalopathy [G93.40] 05/11/2024 Encounter Status:Closed by AUBREY CARDONA on 05/11/[address] [facility] CONFIRM BLOOD TYPEon [address] [facility] Comment on above: Order Comment: Speci men Type: BLOOD SPECIMENOrdering Facility: [facility] Address: [address] [place] [address] Performed By: #### C ONABO ####[facility] [id number] [place] [address] [place] Rh Nom (Bld) Negative Normal [facility] Comment on above: Order Comment: Speci men Type: BLOOD SPECIMENOrdering Facility: [facility] Address: [address] [place] [address] Performed By: #### C ONABO ####[facility] [id number] [place] [address] [place] CONSULTon 05-11-2024 CONSULT HNO ID: [id number] Author: GEORGINA ASH MD Service: Hepatology Author Type: Physician Type: Consults Filed: 05/12/2024 13:54 Note Text: Department of Gastroenterology AND Hepatology Initial Consult Note Impression: Cielo Mcfarlane is a 48 year old woman with limited available past medical history (reported HTN, Type II DM, HLD) who was transferred from an outside hospital in the context of an unwitnessed fall at home, with evidence of acute on chronic liver failure for which hepatology has been consulted. From very limited available information, highest suspicion that this presentation represents ACLF rather than ERIN, given prior documentation of advanced fibrosis via fibroscan dating to 2019, though no primary data available for my review. Her AST predominant aminotransferase elevation in conjunction with profound hyperbilirubinemia as well as coagulopathy raise concern for alc hep as etiology of current presentation, though no collateral obtained from the confirms that etiology. Viral mediated liver injury given preceding URI is also plausible, DILI can be considered though no obvious culprit ( notes tylenol bottles at home, though pattern of liver injury is atypical). Appreciate continued excellent supportive care by ICU team. We favor broad serologic work up for chronic liver disease in the interim and we will initiate process to begin transplant evaluation as we all work to obtain more collateral Recommendations: --- Will require EGD this admission given presenting anemia, timing pending hgb and clinical trajectory. Would favor waiting until encephalopathy improved if no overt bleeding presents itself. Last EGD per report, 2019. ---Favor Q6H lactulose given encephalopathy for now or more frequent ---Please obtain diagnostic paracentesis as well as blood culture, UA, CXR ---Therapeutic CTX noted, no contraindication to dose reduction to ppx for bleeding if paracentesis unremarkable ---Appreciate renal recs, albumin deferred for LEAH (unclear baseline) due to pRBC administration today. Please obtain urine sodium and sediment when able ---Please obtain RUQUS with doppler ---Please obtain chronic and acute viral hepatitis serologies, respiratory viral panel, AMA, anti smooth muscle, anti liver kidney, MARC, IgG, ceruloplasmin, HFE ---PETH is pending ---Favor NAC gtt given report of tylenol ingestion at home by for at least 72 hours ---Please obtain respiratory viral panel ---3 full days of 10 mg IV vitamin K ---A1c, lipid panel ---Will plan for transjugular liver biopsy ---Will plan to initiate transplant eval given MELD though trajectory will likely pend on further collateral Angel Lester MD Gastroenterology and Hepatology Fellow Discussed with Dr. Ash History of Present Illness: Cielo Mcfarlane is a 48 year old woman with limited past medical history who was transferred from an outside hospital in the context of an unwitnessed fall at home, with evidence of acute on chronic liver failure for which hepatology has been consulted. Records are extremely limited at time of authorship but per patient , she (and their children) had a respiratory viral infection this week with progressive jaundice during that time as well as fatigue and degree of confusion. She experienced an unwitnessed fall two days ago at which time EMS was called and patient was brought to a local ED. On arrival, patient was HDS with CBC showing leukocytosis of 17, hgb 5.7, INR 3.1, Cr 2.48 (unclear baseline) with BUN 92 and K 5.0. LFT's notable for AST/ALT 512/184 with T bili 20.5 (mostly direct); negative tylenol, ethanol level, and units tox. CT A/P performed with possible cirrhotic changes (report only available, no images). She was noted to be encephalopathic. She received 2 units pRBC as well as CTX, Vitamin K. She was transferred to [facility] for further management. On arrival here, pt was HDS. Labs notable for leukocytosis to 15.3, hgb 8.1, plt 146. Cr 1.98, T bili 19.0 with AST/ALT 362/169. Lactate 5.4. Patient was started on lactulose, 2 grams CTX, IV PPI BID and hepatology was consulted. Collateral obtained from : He endorses she used to drink regularly though is unable to provide specifics. He is unsure when her last drink was but reports he has not seen her drink in some time. He was not aware she had any form of chronic liver disease. He notes progressive upper and lower extremity weakness over the last year; pt has hx of GBS. Patient was seen by outside GI in 2019 with fibroscan reportedly showing F3 disease at that time. 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 Pertinent Review of Systems: Negative unless noted in HPI Past Medical History: No past medical history on (more content not included)... Normal [facility] Ceruloplasmin SerPl-mCncon 0 05-11-2024 Ceruloplasmin [Mass/Vol] 24 mg/dL Normal 16-45 [facility] Comment on above: Order Comment: Kofi wright Type: BLOOD SPECIMENOrdering Facility: [facility] Address: [address] [place] [address] Performed By: #### 2 064-4, 3016-3 ####[facility] LABIA [id number] [place] [address] [place] Ceruloplasmin [Mass/Vol] 31 mg/dL Normal 16-45 [facility] Comment on above: Order Comment: Kofi wright Type: BLOOD SPECIMENOrdering Facility: [facility] Address: [address] [place] [address] Performed By: #### L IPNF, 2156-6, 2063-4, 37274-3 ####[facility] LABCLIA [id number] [place] [address] [place] Comp Metab 2000 Pnl SerPlon 05-11-2024 Sodium [Moles/Vol] 133 mmol/L Low 136-144 [facility] Comment on above: Order Comment: Kofi wright Type: BLOOD SPECIMENOrdering Facility: [facility] Address: [address] [place] [address] Performed By: #### L IPNF, 2156-6, 2063-4, 68565-4 ####[facility] LABCLIA [id number] [place] [id number] [place] Order Comment: Speci men Type: VENOUS BLOOD SPECIMENOrdering Facility: [facility] Address: [address] [place] [address] Performed By: #### 2 4344-4 ####[facility] LABCLIA [id number] [place] [id number] [place] Comprehensive metabolic 2000 panelon 05-11-2024 Albumin [Mass/Vol] 3.6 g/dL Low 3.9-4.9 [facility] Comment on above: Order Comment: Speci men Type: BLOOD SPECIMENOrdering Facility: [facility] Address: [address] [place] [address] Performed By: #### 2 4323-8, 27702-11, ####[facility] LABCLIA [id number] [place] [address] [place] ALP [Catalytic activity/Vol] 119 U/L Normal 34-123 [facility] Comment on above: Order Comment: Speci men Type: BLOOD SPECIMENOrdering Facility: [facility] Address: [address] [place] [address] Performed By: #### 2 4323-8, 27702-11, ####[facility]CLIA [id number] [place] [address] [place] ALT [Catalytic activity/Vol] 131 U/L High 7-38 [facility] Comment on above: Order Comment: Speci men Type: BLOOD SPECIMENOrdering Facility: [facility] Address: [address] [place] [address] Performed By: #### 2 4323-8, 2776-08, ####[facility]CLIA [id number] [place] [id number] [place] Anion gap [Moles/Vol] 22 mmol/L High 8-15 [facility] Comment on above: Order Comment: Speci men Type: BLOOD SPECIMENOrdering Facility: [facility] Address: [address] [place], [place] [address] Performed By: #### 2 4323-8, 27702-11, ####[facility]CLIA [id number] [place] [address] [place] AST [Catalytic activity/Vol] 252 U/L High 13-35 [facility] Comment on above: Order Comment: Speci men Type: BLOOD SPECIMENOrdering Facility: [facility] Address: [address] [place] [address] Performed By: #### 2 4323-8, 27702-11, ####[facility]CLIA [id number] [place] [address] [place] Bilirubin [Mass/Vol] 19.5 mg/dL High 0.2-1.3 [facility] Comment on above: Order Comment: Speci men Type: BLOOD SPECIMENOrdering Facility: [facility] Address: [address] [place] [address] Performed By: #### 2 4323-8, 27702-11, ####[facility] [id number] [place] [address] [place] Calcium [Mass/Vol] 11.0 mg/dL High 8.5-10.2 [facility] Comment on above: Order Comment: Speci men Type: BLOOD SPECIMENOrdering Facility: [facility] Address: [address] [place], [place] [address] Performed By: #### 2 4323-8, 27702-11, ####[facility] [id number] [place] [id number] [place] Chloride [Moles/Vol] 85 mmol/L Low 98-107 [facility] Comment on above: Order Comment: Speci men Type: BLOOD SPECIMENOrdering Facility: [facility] Address: [address] [place], [place] [address] Performed By: #### 2 4323-8, 2777, ####[facility]CLIA [id number] [place] [id number] [place] CO2 [Moles/Vol] 26 mmol/L Normal 22-30 [facility] Comment on above: Order Comment: Speci men Type: BLOOD SPECIMENOrdering Facility: [facility] Address: [address] [place] [address] Performed By: #### 2 4323-8, 27702-11, ####[facility] [id number] [place] [address] [place] Creatinine [Mass/Vol] 2.01 mg/dL High 0.58-0.96 [facility] Comment on above: Order Comment: Speci men Type: BLOOD SPECIMENOrdering Facility: [facility] Address: [address] [place] [address] Result Comment: Resu lt may be falsely decreased due to interference from icterus. Performed By: #### 2 4323-8, 27702-11, ####[facility] [id number] [address] [place] Creatinine and Glomerular filtration rate.predicted panel (S/P/Bld) 30 mL/min/1.73m??? Low >=60 [facility] Comment on above: Order Comment: Kofi wright Type: BLOOD SPECIMENOrdering Facility: [facility] Address: [address] [place] [address] Result Comment: Destinee mated Glomerular Filtration Rate (eGFR) is calculated using the 2020 CKD-EPI creatinine equation. This equation utilizes serum creatinine, sex, and age as parameters. The creatinine assay has traceable calibration to isotope dilution-mass spectrometry. Refer to KDIGO guidelines for clinical interpretation. In patients with unstable renal function, e.g. those with acute kidney injury, the eGFR may not accurately reflect actual GFR. Performed By: #### 2 4323-8, 2776-08, ####[facility]CLIA [id number] [place] [address] [place] Glucose [Mass/Vol] 149 mg/dL High 74-99 [facility] Comment on above: Order Comment: Speci men Type: BLOOD SPECIMENOrdering Facility: [facility] Address: [address] [place] [address] Result Comment: The [place] [employer] (ADA) provides guidance for cutoff values for fasting glucose and random glucose. The ADA defines fasting as no caloric intake for at least 8 hours. Fasting plasma glucose results between 100 to 125 mg/dL indicate increased risk for diabetes (prediabetes). Fasting plasma glucose results greater than or equal to 126 mg/dL meet the criteria for diagnosis of diabetes. In the absence of unequivocal hyperglycemia, results should be confirmed by repeat testing. In a patient with classic symptoms of hyperglycemia or hyperglycemic crisis, random plasma glucose results greater than or equal to 200 mg/dL meet the criteria for diagnosis of diabetes. Reference: Standards of Medical Care in Diabetes 2016, [place] [employer]. Diabetes Care. 2016.39(Suppl 1). Performed By: #### 2 4323-8, 27702-11, ####[facility] LABCLIA [id number] [place] [address] [place] Protein [Mass/Vol] 5.4 g/dL Low 6.3-8.0 [facility] Comment on above: Order Comment: Speci men Type: BLOOD SPECIMENOrdering Facility: [facility] Address: [address] [place] [address] Result Comment: Resu lt may be falsely decreased due to interference from icterus. Performed By: #### 2 4323-8, 2777, ####[facility] [id number] [place] [address] [place] Sodium [Moles/Vol] 133 mmol/L Low 136-144 [facility] Comment on above: Order Comment: Speci men Type: BLOOD SPECIMENOrdering Facility: [facility] Address: [address] [place] [address] Performed By: #### 2 4323-8, 2777-1, 03625-5 ####[facility]CLIA [id number] [place] [address] [place] Urea nitrogen [Mass/Vol] 94 mg/dL High 7-21 [facility] Comment on above: Order Comment: Speci men Type: BLOOD SPECIMENOrdering Facility: [facility] Address: [address] [place] [address] Performed By: #### 2 4323-8, 2777-1, ####[facility]CLIA [id number] [place] [address] [place] Albumin [Mass/Vol] 2.9 g/dL Low 3.9-4.9 [facility] Comment on above: Order Comment: Speci men Type: BLOOD SPECIMENOrdering Facility: [facility] Address: [address] [place] [address] Performed By: #### L IPNF, 6, 2063-11, 31788-3 ####[facility]CLIA [id number] [place] [address] [place] ALP [Catalytic activity/Vol] 159 U/L High 34-123 [facility] Comment on above: Order Comment: Speci men Type: BLOOD SPECIMENOrdering Facility: [facility] Address: [address] [place] [address] Performed By: #### L IPNF, 2156-6, 2063-11, 87552-7 ####[facility]CLIA [id number] [place] [id number] [place] ALT [Catalytic activity/Vol] 169 U/L High 7-38 [facility] Comment on above: Order Comment: Speci men Type: BLOOD SPECIMENOrdering Facility: [facility] Address: [address] [place] [address] Performed By: #### L IPNF, 2157-01, 2063-11, ####[facility]CLIA [id number] [place] [id number] [place] Anion gap [Moles/Vol] 20 mmol/L High 8-15 [facility] Comment on above: Order Comment: Speci men Type: BLOOD SPECIMENOrdering Facility: [facility] Address: [address] [place] [address] Performed By: #### L IPNF, 2157-01, 2063-11, ####[facility]CLIA [id number] [place] [address] [place] AST [Catalytic activity/Vol] 362 U/L High 13-35 [facility] Comment on above: Order Comment: Speci men Type: BLOOD SPECIMENOrdering Facility: [facility] Address: [address] [place] [address] Performed By: #### L IPNF, 2157-01, 2063-11, ####[facility]CLIA [id number] [place] [address] [place] Bilirubin [Mass/Vol] 19.0 mg/dL High 0.2-1.3 [facility] Comment on above: Order Comment: Speci men Type: BLOOD SPECIMENOrdering Facility: [facility] Address: [address] [place] [address] Performed By: #### L IPNF, 2157-01, 2063-11, ####[facility]CLIA [id number] [place] [id number] [place] Calcium [Mass/Vol] 11.1 mg/dL High 8.5-10.2 [facility] Comment on above: Order Comment: Speci men Type: BLOOD SPECIMENOrdering Facility: [facility] Address: [address] [place] [address] Performed By: #### L IPNF, 2157-01, 2063-11, ####[facility]CLIA [id number] [place] [id number] [place] Chloride [Moles/Vol] 87 mmol/L Low 98-107 [facility] Comment on above: Order Comment: Speci men Type: BLOOD SPECIMENOrdering Facility: [facility] Address: [address] [place] [address] Performed By: #### L IPNF, 2157-01, 2063-11, ####[facility]CLIA [id number] [place] [address] [place] CO2 [Moles/Vol] 26 mmol/L Normal 22-30 [facility] Comment on above: Order Comment: Speci men Type: BLOOD SPECIMENOrdering Facility: [facility] Address: [address] [place] [address] Performed By: #### L IPNF, 2157-01, 2063-11, ####[facility]CLIA [id number] [place] [id number] [place] Creatinine [Mass/Vol] 1.98 mg/dL High 0.58-0.96 [facility] Comment on above: Order Comment: Speci men Type: BLOOD SPECIMENOrdering Facility: [facility] Address: [address] [place] [address] Result Comment: Resu lt may be falsely decreased due to interference from icterus. Performed By: #### L IPNF, 2157-01, 2063-11, ####[facility] [id number] [place] [address] [place] Creatinine and Glomerular filtration rate.predicted panel (S/P/Bld) 31 mL/min/1.73m??? Low >=60 [facility] Comment on above: Order Comment: Speci men Type: BLOOD SPECIMENOrdering Facility: [facility] Address: [address] [place] [id number] Result Comment: Destinee mated Glomerular Filtration Rate (eGFR) is calculated using the 2020 CKD-EPI creatinine equation. This equation utilizes serum creatinine, sex, and age as parameters. The creatinine assay has traceable calibration to isotope dilution-mass spectrometry. Refer to KDIGO guidelines for clinical interpretation. In patients with unstable renal function, e.g. those with acute kidney injury, the eGFR may not accurately reflect actual GFR. Performed By: #### L IPNF, 2157-01, 2063-11, ####[facility] [id number] [address] [address] [place] Glucose [Mass/Vol] 101 mg/dL High 74-99 [facility] Comment on above: Order Comment: Speci men Type: BLOOD SPECIMENOrdering Facility: [facility] Address: [address] [place] [address] Result Comment: The [place] Diabetes [employer] (ADA) provides guidance for cutoff values for fasting glucose and random glucose. The ADA defines fasting as no caloric intake for at least 8 hours. Fasting plasma glucose results between 100 to 125 mg/dL indicate increased risk for diabetes (prediabetes). Fasting plasma glucose results greater than or equal to 126 mg/dL meet the criteria for diagnosis of diabetes. In the absence of unequivocal hyperglycemia, results should be confirmed by repeat testing. In a patient with classic symptoms of hyperglycemia or hyperglycemic crisis, random plasma glucose results greater than or equal to 200 mg/dL meet the criteria for diagnosis of diabetes. Reference: Standards of Medical Care in Diabetes 2016, [place] [employer]. Diabetes Care. 2016.39(Suppl 1). Performed By: #### L IPNF, 2157-01, 2063-11, ####[facility] [id number] [address] [address] [place] Potassium [Moles/Vol] 5.4 mmol/L High 3.7-5.1 [facility] Comment on above: Order Comment: Speci men Type: BLOOD SPECIMENOrdering Facility: [facility] Address: [address] [place] [address] Performed By: #### L IPNF, 2157-01, 2063-11, ####[facility]CLIA [id number] [place] [id number] [place] Protein [Mass/Vol] 5.1 g/dL Low 6.3-8.0 [facility] Comment on above: Order Comment: Speci men Type: BLOOD SPECIMENOrdering Facility: [facility] Address: [address] [place] [address] Result Comment: Resu lt may be falsely decreased due to interference from icterus. Performed By: #### L IPNF, 2157-01, 2063-11, 39089-9 ####[facility] [id number] [place] [address] [place] Urea nitrogen [Mass/Vol] 95 mg/dL High 7-21 [facility] Comment on above: Order Comment: Speci men Type: BLOOD SPECIMENOrdering Facility: [facility] Address: [address] [place] [address] Performed By: #### L IPNF, 2157-01, 2063-11, 13608-5 ####[facility] [id number] [place] [address] [place] ECHO WITH AGITATED SALINE CO NTRASTon 05-11-2024 ECHO WITH AGITATED SALINE CONTRAST Echocardiography Report: Transthoracic Echo [facility] Bedside Date of service: 05/11/2024 2:24:35 PM STACKER Ordering physician: PRIYANKA KC Indication: liver disease, r/o shunt Technologist: Shantanu Ch Interpreting physician: Frances Lebron MD PATIENT: Name: CIELO MCFARLANE : 1975 Age: 48 years Gender: F Primary rhythm: sinus. Height: 152.00 cm BSA: 1.86 m Weight: 81.65 kg BMI: 35.3 kg/m Heart rate 90 bpm Blood pressure 101/52 mmHg Technically difficult exam due to body habitus, suboptimal positioning and ascites - no subcostal images(painful for patient with probe pressure, unable to turn patient. Agitated saline was administered to rule out shunt. Color Doppler was utilized to interrogate the cardiac valves assessed and spectral Doppler was utilized to determine the flow velocities and pressure gradients reported in this exam. MEASUREMENTS: Value Indexed Normal Max aortic dimension 2.9 cm Ao < 3.8 LV ID (diastole) 4.6 cm (2D) 2.50 cm/m LV ID (systole) 2.8 cm (2D) 1.49 cm/m IVS, leaflet tips 1.8 cm (2D) Posterior wall thickness 1.2 cm (2D) Left ventricular mass 274 g (2D) 148 g/m Ejection Fraction 65 % (visual est.) EF > 54 FINDINGS: LEFT VENTRICLE The left ventricle is normal in size. Left ventricular systolic function is normal. Wall Motion: All scored segments are normal. RIGHT VENTRICLE The right ventricle is normal in size. Right ventricular systolic function is normal. LEFT ATRIUM The left atrial cavity is normal in size. Unable to reliably measure LA volume due to technical limitations. RIGHT ATRIUM The right atrial cavity is normal in size. Unable to reliably measure RA volume due to technical limitations. MITRAL VALVE The mitral valve leaflets are structurally normal. There is no mitral valve regurgitation. The pressure half time is 103 msec. The peak mitral E/A ratio is 0.86. The mitral flow deceleration time is 356 msec. TRICUSPID VALVE The tricuspid valve leaflets are structurally normal. There is no tricuspid valve regurgitation. AORTIC VALVE The aortic valve cusps are structurally normal. There is no aortic valve regurgitation. Tricuspid aortic valve. PULMONIC VALVE The pulmonic valve was not seen or not interrogated. There is no pulmonic valve regurgitation. AORTA The visualized aorta is normal in size. Measurements - Aortic valve annulus 2.0 cm. Sinus: 2.9 cm. PERICARDIUM There is a small circumferential pericardial effusion measuring 0.6 cm. There is a pleural effusion. Ascites. CONCLUSIONS: - Technically difficult exam due to body habitus, suboptimal positioning and ascites - no subcostal images(painful for patient with probe pressure, unable to turn patient. - Exam indication: liver disease, r/o shunt - Agitated saline was administered to rule out shunt. - The left ventricle is normal in size. Left ventricular systolic function is normal. EF = 65 5% (visual est.) - The right ventricle is normal in size. Right ventricular systolic function is normal. - Agitated saline contrast exam performed(clip#34) - negative for intracardiac shunting - limited exam - no subcostal window, very limited apical acoustic window - The patient has not had a prior CC echocardiographic exam for comparison. * * * Final * * * CC Safe N Clear Medical Image : [id number] amicsSISUID Normal [facility] Gas + CO Pnl BldVon 05-11-20 24 Potassium [Moles/Vol] 4.5 mmol/L Normal 3.7-5.1 [facility] Comment on above: Order Comment: Speci men Type: VENOUS BLOOD SPECIMENOrdering Facility: [facility] Address: [address] [place] [address] Performed By: #### 2 4344-4 ####[facility] [id number] [place] [address] [place] Order Comment: Speci men Type: BLOOD SPECIMENOrdering Facility: [facility] Address: [address] [place] [address] Performed By: #### 2 4323-8, 2777-1, 45670-5 ####[facility] [id number] [place] [address] [place] Gas and Carbon monoxide pane l (BldV)on 05-11-2024 Base excess Calc (BldV) [Moles/Vol] 4 mmol/L High 0-2 [facility] Comment on above: Order Comment: Speci men Type: VENOUS BLOOD SPECIMENOrdering Facility: [facility] Address: [address] [place] [address] Performed By: #### 2 4344-4 ####[facility] [id number] [place] [address] [place] Body temperature 98.6 [degF] Normal [facility] Comment on above: Order Comment: Speci men Type: VENOUS BLOOD SPECIMENOrdering Facility: [facility] Address: [address] [place] [address] Performed By: #### 2 4344-4 ####[facility] [id number] [place] [address] [place] Calcium.ionized (Bld) [Mass/Vol] 1.35 mmol/L High 1.08-1.30 [facility] Comment on above: Order Comment: Speci men Type: VENOUS BLOOD SPECIMENOrdering Facility: [facility] Address: [address] [place] [address] Performed By: #### 2 4344-4 ####[facility] [id number] [place] [address] [place] Calcium.ionized adjusted to pH 7.4 (BldA) [Moles/Vol] 1.35 mmol/L High 1.08-1.30 [facility] Comment on above: Order Comment: Speci men Type: VENOUS BLOOD SPECIMENOrdering Facility: [facility] Address: [address] [place] [address] Performed By: #### 2 4344-4 ####[facility] [id number] [place] [address] [place] Carboxyhemoglobin (BldV) [Mass fraction] 2.8 % High 0.0-2.0 [facility] Comment on above: Order Comment: Speci men Type: VENOUS BLOOD SPECIMENOrdering Facility: [facility] Address: [address] [place] [address] Result Comment: Carb oxyhemoglobin Reference Range for Smokers: 2.0-8.0% Performed By: #### 2 4344-4 ####[facility] [id number] [place] [address] [place] CO2 (BldV) [Partial pressure] 48 mm[Hg] Normal 42-55 [facility] Comment on above: Order Comment: Speci men Type: VENOUS BLOOD SPECIMENOrdering Facility: [facility] Address: [address] [place] [address] Performed By: #### 2 4344-4 ####[facility] [id number] [place] [address] [place] Glucose [Mass/Vol] 164 mg/dL High 60-105 [facility] Comment on above: Order Comment: Speci men Type: VENOUS BLOOD SPECIMENOrdering Facility: [facility] Address: [address] [place] [address] Performed By: #### 2 4344-4 ####[facility] [id number] [place] [address] [place] HCO3 (Bld) [Moles/Vol] 29 mmol/L High 24-28 [facility] Comment on above: Order Comment: Speci men Type: VENOUS BLOOD SPECIMENOrdering Facility: [facility] Address: [address] [place] [address] Performed By: #### 2 4344-4 ####[facility] [facility] [id number] [place] [address] [place] Hematocrit (Bld) [Volume fraction] 21.3 % Low 36.0-46.0 [facility] Comment on above: Order Comment: Speci men Type: VENOUS BLOOD SPECIMENOrdering Facility: [facility] Address: [address] [place], [place] [address] Performed By: #### 2 4344-4 ####[facility] [id number] [place] [id number] [place] Hemoglobin (Bld) [Mass/Vol] 6.8 g/dL Low 11.5-15.5 [facility] Comment on above: Order Comment: Speci men Type: VENOUS BLOOD SPECIMENOrdering Facility: [facility] Address: [address] [place], [place] [address] Performed By: #### 2 4344-4 ####[facility] [id number] [place] [address] [place] Lactate [Moles/Vol] 4.3 mmol/L High 0.5-2.2 [facility] Comment on above: Order Comment: Speci men Type: VENOUS BLOOD SPECIMENOrdering Facility: [facility] Address: [address] [place] [address] Performed By: #### 2 4344-4 ####[facility] [id number] [place] [address] [place] LITERS 3 Liters/min Normal [facility] Comment on above: Order Comment: Speci men Type: VENOUS BLOOD SPECIMENOrdering Facility: [facility] Address: [address] [place] [address] Performed By: #### 2 4344-4 ####[facility] [id number] [place] [address] [place] Methemoglobin (Bld) [Mass fraction] 0.4 % Normal 0.0-1.5 [facility] Comment on above: Order Comment: Speci men Type: VENOUS BLOOD SPECIMENOrdering Facility: [facility] Address: [address] [place], [place] [address] Performed By: #### 2 4344-4 ####[facility] [id number] [place] [address] [place] O2 THERAPY NC = Nasal Cannula Normal [facility] Comment on above: Order Comment: Speci men Type: VENOUS BLOOD SPECIMENOrdering Facility: [facility] Address: [address] [place], [place] [address] Performed By: #### 2 4344-4 ####[facility] [id number] [place] [address] [place] Oxygen (BldV) [Partial pressure] 118 mm[Hg] High 35-45 [facility] Comment on above: Order Comment: Speci men Type: VENOUS BLOOD SPECIMENOrdering Facility: [facility] Address: [address] [place] [address] Performed By: #### 2 4344-4 ####[facility] [id number] [address] [address] [place] Oxygen saturation in Venous blood 100 % High 60-85 [facility] Comment on above: Order Comment: Speci men Type: VENOUS BLOOD SPECIMENOrdering Facility: [facility] Address: [address] [place], [place] [address] Performed By: #### 2 4344-4 ####[facility] [id number] [place] [address] [place] Oxyhemoglobin (BldV) [Mass fraction] 96 % High 60-85 [facility] Comment on above: Order Comment: Speci men Type: VENOUS BLOOD SPECIMENOrdering Facility: [facility] Address: [address] [place], [place] [address] Performed By: #### 2 4344-4 ####[facility] [id number] [place] [address] [place] pH (BldV) 7.39 [pH] Normal 7.32-7.42 [facility] Comment on above: Order Comment: Speci men Type: VENOUS BLOOD SPECIMENOrdering Facility: [facility] Address: [address] [place], [place] [address] Performed By: #### 2 4344-4 ####[facility] [id number] [address] [address] [place] Sodium [Moles/Vol] 132 mmol/L Low 136-144 [facility] Comment on above: Order Comment: Speci men Type: VENOUS BLOOD SPECIMENOrdering Facility: [facility] Address: [address] [place], [place] [address] Performed By: #### 2 4344-4 ####[facility] [id number] [place] [address] [place] Base excess Calc (BldV) [Moles/Vol] 4 mmol/L High 0-2 [facility] Comment on above: Order Comment: Speci men Type: VENOUS BLOOD SPECIMENOrdering Facility: [facility] Address: [address] [place] [address] Performed By: #### 2 4344-4 ####[facility] [id number] [place] [address] [place] Body temperature 98.6 [degF] Normal [facility] Comment on above: Order Comment: Speci men Type: VENOUS BLOOD SPECIMENOrdering Facility: [facility] Address: [address] [place] [address] Performed By: #### 2 4344-4 ####[facility] [id number] [place] [address] [place] Calcium.ionized (Bld) [Mass/Vol] 1.43 mmol/L High 1.08-1.30 [facility] Comment on above: Order Comment: Speci men Type: VENOUS BLOOD SPECIMENOrdering Facility: [facility] Address: [address] [place] [address] Performed By: #### 2 4344-4 ####[facility] [id number] [place] [address] [place] Calcium.ionized adjusted to pH 7.4 (BldA) [Moles/Vol] 1.44 mmol/L High 1.08-1.30 [facility] Comment on above: Order Comment: Speci men Type: VENOUS BLOOD SPECIMENOrdering Facility: [facility] Address: [address] [place] [address] Performed By: #### 2 4344-4 ####[facility] [id number] [place] [address] [place] Carboxyhemoglobin (BldV) [Mass fraction] 2.7 % High 0.0-2.0 [facility] Comment on above: Order Comment: Speci men Type: VENOUS BLOOD SPECIMENOrdering Facility: [facility] Address: [address] [place] [address] Result Comment: Carb oxyhemoglobin Reference Range for Smokers: 2.0-8.0% Performed By: #### 2 4344-4 ####[facility] [id number] [place] [address] [place] CO2 (BldV) [Partial pressure] 46 mm[Hg] Normal 42-55 [facility] Comment on above: Order Comment: Speci men Type: VENOUS BLOOD SPECIMENOrdering Facility: [facility] Address: [address] [place] [address] Performed By: #### 2 4344-4 ####[facility] [id number] [place] [address] [place] Glucose [Mass/Vol] 105 mg/dL Normal 60-105 [facility] Comment on above: Order Comment: Speci men Type: VENOUS BLOOD SPECIMENOrdering Facility: [facility] Address: [address] [place] [address] Performed By: #### 2 4344-4 ####[facility] [id number] [place] [address] [place] HCO3 (Bld) [Moles/Vol] 28 mmol/L Normal 24-28 [facility] Comment on above: Order Comment: Speci men Type: VENOUS BLOOD SPECIMENOrdering Facility: [facility] Address: [address] [place] [address] Performed By: #### 2 4344-4 ####[facility] [id number] [place] [address] [place] Hematocrit (Bld) [Volume fraction] 25.9 % Low 36.0-46.0 [facility] Comment on above: Order Comment: Speci men Type: VENOUS BLOOD SPECIMENOrdering Facility: [facility] Address: [address] [place] [id number] Performed By: #### 2 4344-4 ####[facility] [id number] [place] [address] [place] Hemoglobin (Bld) [Mass/Vol] 8.3 g/dL Low 11.5-15.5 [facility] Comment on above: Order Comment: Speci men Type: VENOUS BLOOD SPECIMENOrdering Facility: [facility] Address: [address] [place] [address] Performed By: #### 2 4344-4 ####[facility] [id number] [place] [address] [place] Lactate [Moles/Vol] 5.4 mmol/L High 0.5-2.2 [facility] Comment on above: Order Comment: Speci men Type: VENOUS BLOOD SPECIMENOrdering Facility: [facility] Address: [address] [place] [address] Performed By: #### 2 4344-4 ####[facility] [id number] [place] [address] [place] LITERS 2 Liters/min Normal [facility] Comment on above: Order Comment: Speci men Type: VENOUS BLOOD SPECIMENOrdering Facility: [facility] Address: [address] [place], [place] [phone] Performed By: #### 2 4344-4 ####[facility] [id number] [place] [address] [place] Methemoglobin (Bld) [Mass fraction] 0.5 % Normal 0.0-1.5 [facility] Comment on above: Order Comment: Speci men Type: VENOUS BLOOD SPECIMENOrdering Facility: [facility] Address: [address] [place], [place] [address] Performed By: #### 2 4344-4 ####[facility] [id number] [address] [place] [address] [place] O2 THERAPY NC = Nasal Cannula Normal [facility] Comment on above: Order Comment: Speci men Type: VENOUS BLOOD SPECIMENOrdering Facility: [facility] Address: [address] [place] [address] Performed By: #### 2 4344-4 ####[facility] [id number] [address] [address] [place] Oxygen (BldV) [Partial pressure] 66 mm[Hg] High 35-45 [facility] Comment on above: Order Comment: Speci men Type: VENOUS BLOOD SPECIMENOrdering Facility: [facility] Address: [address] [place] [address] Performed By: #### 2 4344-4 ####[facility] [id number] [place] [address] [place] Oxygen saturation in Venous blood 92 % High 60-85 [facility] Comment on above: Order Comment: Speci men Type: VENOUS BLOOD SPECIMENOrdering Facility: [facility] Address: [address] [place], [place] [address] Performed By: #### 2 4344-4 ####[facility] [id number] [place] [address] [place] Oxyhemoglobin (BldV) [Mass fraction] 89 % High 60-85 [facility] Comment on above: Order Comment: Speci men Type: VENOUS BLOOD SPECIMENOrdering Facility: [facility] Address: [address] [place] [address] Performed By: #### 2 4344-4 ####[facility] [id number] [place] [address] [place] pH (BldV) 7.41 [pH] Normal 7.32-7.42 [facility] Comment on above: Order Comment: Speci men Type: VENOUS BLOOD SPECIMENOrdering Facility: [facility] Address: [address] [place], [place] [address] Performed By: #### 2 4344-4 ####[facility] [id number] [place] [address] [place] Potassium [Moles/Vol] 5.2 mmol/L High 3.5-5.0 [facility] Comment on above: Order Comment: Speci men Type: VENOUS BLOOD SPECIMENOrdering Facility: [facility] Address: [address] [place] [address] Performed By: #### 2 4344-4 ####[facility] [id number] [place] [address] [place] HCG Preg Ur Qlon 05-11-2024 HCG ( test) Ql (U) Negative Normal Negative [facility] Comment on above: Order Comment: Speci men Type: URINE SPECIMENOrdering Facility: [facility] Address: [address] [place] [address] Result Comment: This test is intended to aid in the early detection of . Very dilute urine samples, as indicated by a low specific gravity, may not contain retail wireless sales representative levels of hCG. This test detects intact hCG only. This test does not reliably detect hCG degradation products, including free-beta subunit and beta-core fragment. Therefore, this test may show reduced reactivity in urine after 8 weeks gestation. A number of conditions other than , including trophoblastic disease and certain non-trophoblastic neoplasms cause elevated levels of hCG. As with any assay employing mouse antibodies, the possibility exists for interference by human anti-mouse antibodies (HAMA) in the specimen. The test provides a presumptive diagnosis for . Performed By: #### U UNR, 60237-5, 2106-3, UTOX2, 2890-2 ####[facility] [id number] [place] [address] [place] HCV Ab Ser Qlon 05-11-2024 HCV Ab Ql (S) Negative Normal Negative [facility] Comment on above: Order Comment: Speci men Type: BLOOD SPECIMENOrdering Facility: [facility] Address: [address], [place] [address] Result Comment: The result suggests no evidence of active infection with Hepatitis C virus. Should recent infection be suspected, repeat testing may be considered 4-6 weeks after this draw. Performed By: #### 1 6128-1 ####[facility] [id number] [address] [place] HCV RNA SerPl SHERRIE+probe-aCnc on 05-11-2024 HCV RNA SHERRIE+probe Qn Not detected Normal HCV RNA not detected by PCR. [facility] Comment on above: Order Comment: Speci men Type: BLOOD SPECIMENOrdering Facility: [facility] Address: [address] [place] [address] Performed By: #### 1 1011-4 ####[facility] [id number] [address] [place] HISTORY PHYSICALon HISTORY PHYSICAL HNO ID: [id number] Author: ANNE-MARIE MATIAS MD Service: Critical Care Author Type: Physician Type: H&P Filed: 05/11/2024 15:24 Note Text: MICU HANDP SERVICE DATE: 05/11/2024 SERVICE TIME: 1:51 PM Admission Date: 05/10/2024 Subjective HPI: This is a 48 year old with limited past medical history (Transaminitis, ETOH Abuse, Tobacco Abuse) Patient found down at home by her son, about 5 feet from the couch, taken to outside facility [place]. Noted worsening yellow skin, worsening mentation, and swelling over the past week with lethargy, and fever/respiratory symptoms around the last 6 to 7 days. Has been using Tylenol for some of the symptoms however unclear a total amount. [facility], leukocytosis, anemia, coagulopathy. OSH Course: CBC leukocytosis of 17, RBC 1.46, hemoglobin 5.7, platelets 183, with neutrophil predominance in differential. INR: 3.1 CMP: sodium 131, K5.0, BUN 92, creatinine 2.48, AST ALT 512 and 184 respectively, alk phos 189, ammonia 20, albumin 2.5, amylase 43, lipase 199, test negative INR 4 total bili 20.5, direct 15.7 Acetaminophen level undetectable, ethanol level undetectable U tox negative, acute hepatitis panel negative EKG without evidence of ACS. FOB negative. CT scan without acute blled (see report below) CXR: No acute process 05/10: CT AP: No visible pulmonary or pleural disease, no dilation of the biliary tree, slight wall thickening of the hepatic flexure of the colon without obstruction, moderate abdominal ascites of uncertain etiology, heterogeneous density of the liver predominantly involving the right hepatic lobe which is not well-seen on setting of noncontrast study, may be due to cirrhotic changes, CT of liver without and with recommended for further eval. Colonic diverticulosis, questionable mild thickening of hepatic flexure of the colon mild colitis She was treated with Tylenol, 50 mcg of fentanyl, 1 g ceftriaxone, 250 mL of sodium chloride, lactulose, Flagyl, Zofran and IV PPI Also given 5mg vit K, and two units PRBC. In the morning of 05/11 for hemoglobin of 6.9, 2 more units ordered, finished on route to [facility]. Also given 13k units NAC which finished neroute to [facility]. Arrived to [facility] MICU HDS, MAP 72, saturating 92% on room air, awake alert and oriented x 2-3. No past medical history on file. No past surgical history on file. No family history on file. No medications prior to admission. ALLERGIES Not on File COMPLETE REVIEW OF SYSTEMS: PAIN ASSESSMENT: CURRENTLY HAVING PAIN; diffusely in abdomen, generalized aching GENERAL: Positive for fever, malaise, achiness RESPIRATORY: Cough, congestion. Denies shortness of breath. CARDIOVASCULAR: Positive for leg swelling. NEURO: No history of headaches, syncope, paralysis, seizures or tremors Objective VITAL SIGNS (last 24hrs min/max): No data recorded No data recorded No data recorded Cuff No data recorded Vital signs reviewed. Relevant comments- Reviewed NET FLUID BALANCE No intake or output data in the 24 hours ending 05/11/24 1050 [employer]WELLING CATHETERS: Lines, Drains, and Airways None PHYSICAL EXAM: Physical exam performed HEENT: Oral Mucosa: Dry mucous membranes Feeding Tube: No Eyes: PERRL, with icterus Neck: Unremarkable; No adenopathy or JVD Cardiovascular: Regular rhythm Relevant Hemodynamic Data: Reviewed Respiratory: Clear to auscultation Supplemental Oxygen: No No data recorded Abdomen: Sig. Protuberant, mild tenderness diffusely without guarding or rigidity Extremities: Edema- Yes 2+ in pitting bilaterally Peripheral Pulses- Present all extremities Capillary Refill- 4 seconds Skin: Abnormalities- No Breakdown- No Neurologic: Awake, NUTRITION: NPO Enteral Feeds: No DATA: Diagnostic tests reviewed for today's visit: Most recent labs and imaging results. LABS: CBC, Coags, BMP, Mg, Phos Liver Function, Amylase, AND Lipase Cardiac Enzymes ABGs CULTURES: N/A CXR FINDINGS: Clear lung ybarra OTHER IMAGING: CT AP, see HPI Assessment/Plan Patient Summary: 48-year-old female with limited past medical history other than tobacco abuse and remote history of alcohol use who presents to outside facility for acute mentation changes fatigue and lethargy found to have worsening transaminitis, acute blood loss anemia and LEAH Assessment + Plan: The following diagnoses were present upon admission to the MICU: Neuro: Diagnosis #HE Assessment: Mild, still oriented x 2, ammonia 43 Plan: - Miralax for BM goal 3 daily Pulm: Diagnosis Assessment: Plan: - NAD, on room air CV: Diagnosis #Hypotension #Lactic acidosis Assessment: Without acute shock Plan: - Stat ECHO - Trend lactate/VBG - Resus with albumin Renal / Electrolytes: Diagnosis LEAH Hyper K Baseline SCr: unclear Likely in setting of HRS, consider pre renal as as well in setting of anemia (more content not included)... Normal [facility] HbA1c (Bld)on 05-11-2024 Average glucose Estimated from glycated hemoglobin (Bld) [Mass/Vol] 126 mg/dL Normal [facility] Comment on above: Order Comment: Kofi wright Type: VENOUS BLOOD SPECIMEN [facility] Address: [address] [place] [address] Result Comment: eAG: (Estimated average glucose) is a calculated value from HgbA1c and is retail wireless sales representative of the average blood glucose level in the last 2-3 month period. Performed By: #### 2 4344-4 #### [facility] CLIA [id number] [address] [place] [address] [place] [address] [place] HbA1c (Bld) [Mass fraction] 6.0 % High 4.3-5.6 [facility] Comment on above: Order Comment: Speci men Type: VENOUS BLOOD SPECIMEN [facility] Address: [address] [place] [address] Result Comment: Amer [place] Diabetes Association guidelines indicate that patients with HgbA1c in the range 5.7-6.4% are at increased risk for development of diabetes, and intervention by lifestyle modification may be beneficial. HgbA1c greater or equal to 6.5% is considered diagnostic of diabetes. Performed By: #### 2 4344-4 #### [facility] CLIA [id number] [address] [place] [address] [place] LIPID PANEL, NONFASTINGon Cholesterol [Mass/Vol] 135 mg/dL Normal <200 [facility] Comment on above: Order Comment: Speci men Type: BLOOD SPECIMENOrdering Facility: [facility] Address: [address] [place] [address] Result Comment: <200 mg/dL, Desirable 200-239 mg/dL, Borderline high >239 mg/dL, High Performed By: #### L IPNF, 2157-01, 2063-11, 31131-4 ####[facility] [id number] [place] [address] [place] HDL CHOLESTEROL, NF 3 mg/dL Low >39 [facility] Comment on above: Order Comment: Speci men Type: BLOOD SPECIMENOrdering Facility: [facility] Address: [address] [place] [address] Result Comment: 40-5 9 mg/dL, Acceptable >59 mg/dL, High: Negative risk factor for coronary heart disease <40 mg/dL, Low: Positive risk factor for coronary heart disease Performed By: #### L IPNF, 2157-01, 2063-11, 58290-9 ####[facility] [id number] [place] [address] [place] LDL CHOLESTEROL, NF 75 mg/dL Normal <100 [facility] Comment on above: Order Comment: Speci men Type: BLOOD SPECIMENOrdering Facility: [facility] Address: [facility] [place] [address] Result Comment: <100 mg/dL, Optimal 100-129 mg/dL, Near optimal/above optimal 130-159 mg/dL, Borderline high 160-189 mg/dL, High >189 mg/dL, Very high Secondary prevention optimal LDL Cholesterol levels are recommended to be < 70 mg/dL Performed By: #### L IPLESLIE, 2157-01, 2063-11, ####[facility] [id number] [place] [address] [place] LDL/HDL RATIO, NF 25.00 mg/dL High <2.54 [facility] Comment on above: Order Comment: Kofi wright Type: BLOOD SPECIMENOrdering Facility: [facility] Address: [address] [place] [address] Result Comment: Refe rence: 1. National Cholesterol Education Program ATP III Guideline At-A-Glance Quick Desk Reference: National Heart, Lung, and Blood [place]. National Institutes of Health. 2001: NIH Publication No. 01-3305. 2. An International Atherosclerosis Society position paper: global recommendations for the management of dyslipidemia: executive summary, Atherosclerosis. 2014: 232(2):410-413. Performed By: #### L AMITA, 2157-01, 2063-11, ####[facility] [id number] [place] [address] [place] NON HDL CHOL, NF 132 mg/dL High <130 [facility] Comment on above: Order Comment: Kofi wright Type: BLOOD SPECIMENOrdering Facility: [facility] Address: [address] [place] [address] Result Comment: <130 mg/dL, Optimal 130-159 mg/dL, Near optimal/above optimal 160-189 mg/dL, Borderline high 190-219 mg/dL, High >219 mg/dL, Very high Secondary prevention optimal non HDL Cholesterol levels are recommended to be <100 mg/dL Performed By: #### L IPNF, 2157-01, 2063-11, ####[facility] [id number] [place] [address] [place] T CHOL/HDL RATIO NF 45.00 mg/dL High <5.10 [facility] Comment on above: Order Comment: Speci men Type: BLOOD SPECIMENOrdering Facility: [facility] Address: [address] [place] [address] Performed By: #### L IPNF, 2157-01, 2063-11, ####[facility] [id number] [place] [address] [place] TRIGLYCERIDES, NF 285 mg/dL High <150 [facility] Comment on above: Order Comment: Speci men Type: BLOOD SPECIMENOrdering Facility: [facility] Address: [address] [place] [address] Result Comment: <150 mg/dL, Normal 150-199 mg/dL, Borderline high 200-499 mg/dL, High >499 mg/dL, Very high Result may be adversely affected due to interference from icterus. Performed By: #### L IPNF, 2157-01, 2063-11, ####[facility] [id number] [place] [address] [place] VLDL CHOLESTEROL, NF 57 mg/dL High <30 [facility] Comment on above: Order Comment: Speci men Type: BLOOD SPECIMENOrdering Facility: [facility] Address: [address] [place] [address] Performed By: #### L IPNF, 2157-01, 2063-11, ####[facility] [id number] [place] [address] [place] MANUAL DIFFERENTIAL, BODY FL UIDon 05-11-2024 DIF TTL, BODY FLUID [address] [facility] Comment on above: Order Comment: Speci men Type: FLUID SPECIMEN Ordering Facility: [facility] Address: [address], [place] [address] Performed By: #### C CBF, [id number] #### [facility] CLIA [id number] [address] [place] [address] [place] LYMPH%, BF 9 % Low 18-36 [facility] Comment on above: Order Comment: Speci men Type: FLUID SPECIMEN Ordering Facility: [facility] Address: [address] [place] [address] Performed By: #### C CBF, [id number] #### [facility] CLIA [id number] [address] [place] [address] [place] MACRO%, BF 37 % Low 64-80 [facility] Comment on above: Order Comment: Speci men Type: FLUID SPECIMEN Ordering Facility: [facility] Address: [address] [place] [address] Performed By: #### C CBF, [id number] #### [facility] CLIA [id number] [address] [place] [address] [place] MESO %, BF 6 % High 0-2 [facility] Comment on above: Order Comment: Speci men Type: FLUID SPECIMEN Ordering Facility: [facility] Address: [address] [place] [address] Performed By: #### C CBF, [id number] #### [facility] CLIA [id number] [address] [place] [address] [place] NEUT%, BF 48 % High 0-1 [facility] Comment on above: Order Comment: Speci men Type: FLUID SPECIMEN Ordering Facility: [facility] Address: [address] [place] [address] Performed By: #### C CBF, [id number] #### [facility] CLIA [id number] [address] [place] [address] [place] Magnesium SerPl-mCncon 05-11 Magnesium [Mass/Vol] 2.1 mg/dL Normal 1.7-2.3 [facility] Comment on above: Order Comment: Speci men Type: BLOOD SPECIMENOrdering Facility: [facility] Address: [address] [place] [address] Performed By: #### 2 4323-8, 2777-1, 20491-6 ####[facility] [id number] [place] [id number] [place] Osmolality Uron 05-11-2024 Osmolality (U) [Osmolality] 370 mosm/kg Normal 50-1200 [facility] Comment on above: Order Comment: Speci men Type: URINE SPECIMENOrdering Facility: [facility] Address: [address] [place] [address] Performed By: #### 2 695-5 ####[facility] [id number] [place] [address] [place] PT panel Coag (PPP)on 2023 INR Coag (PPP) [Relative time] 2.2 {INR} High 0.9-1.3 [facility] Comment on above: Order Comment: Speci men Type: BLOOD SPECIMENOrdering Facility: [facility] Address: [address] [place] [address] Result Comment: Dianna min K Antagonist (VKA) Therapeutic Range: INR 2 to 3 (Target INR of 2.5) Note: For patients treated with VKA drugs, such as warfarin, the [place] [employer] 2012 Guideline recommends a therapeutic INR range of 2 to 3 (target INR of 2.5). This recommendation includes high-risk patients with antiphospholipid syndrome with previous arterial or venous thromboembolism, current-generation mechanical or bioprosthetic aortic heart valve replacement. Note: Patients with mechanical aortic valve replacement and additional risk factors for thromboembolic events (atrial fibrillation, previous thromboembolism, LV dysfunction, hypercoagulable conditions) or an older generation mechanical AVR (i.e., ball in-Cage) or any mechanical MVR should have a INR therapeutic range of 2.5 to 3.5 (target INR of 3). Lance GH, et al. Chest 2012, 141:7S-47S Deshawn RA et al. JACC 2017, 70: 252-289 Performed By: #### 3 4528-0 ####[facility] [id number] [place] [address] [place] PT Coag (PPP) [Time] 21.9 s High 9.7-13.0 [facility] Comment on above: Order Comment: Speci men Type: BLOOD SPECIMENOrdering Facility: [facility] Address: [address] [place] [address] Performed By: #### 3 4528-0 ####[facility] [id number] [place] [address] [place] INR Coag (PPP) [Relative time] 2.2 {INR} High 0.9-1.3 [facility] Comment on above: Order Comment: Speci men Type: VENOUS BLOOD SPECIMEN Ordering Facility: [facility] Address: [address] [place] [address] Result Comment: Dianna min K Antagonist (VKA) Therapeutic Range: INR 2 to 3 (Target INR of 2.5) Note: For patients treated with VKA drugs, such as warfarin, the [place] [employer] 2012 Guideline recommends a therapeutic INR range of 2 to 3 (target INR of 2.5). This recommendation includes high-risk patients with antiphospholipid syndrome with previous arterial or venous thromboembolism, current-generation mechanical or bioprosthetic aortic heart valve replacement. Note: Patients with mechanical aortic valve replacement and additional risk factors for thromboembolic events (atrial fibrillation, previous thromboembolism, LV dysfunction, hypercoagulable conditions) or an older generation mechanical AVR (i.e., ball in-Cage) or any mechanical MVR should have a INR therapeutic range of 2.5 to 3.5 (target INR of 3). Lance GH, et al. Chest 2012, 141:7S-47S Deshawn RA et al. [facility] 2017, 70: 252-289 Performed By: #### 2 4344-4 #### [facility] CLIA [id number] [address] [place] [address] [place] PT Coag (PPP) [Time] 22.1 s High 9.7-13.0 [facility] Comment on above: Order Comment: Speci men Type: VENOUS BLOOD SPECIMEN Ordering Facility: [facility] Address: [address] [place] [address] Performed By: #### 2 4344-4 #### [facility] CLIA [id number] [address] [place] [address] [place] INR Coag (PPP) [Relative time] 2.2 {INR} High 0.9-1.3 [facility] Comment on above: Order Comment: Speci men Type: FLUID SPECIMEN Ordering Facility: [facility] Address: [address] [place] [address] Result Comment: Dianna min K Antagonist (VKA) Therapeutic Range: INR 2 to 3 (Target INR of 2.5) Note: For patients treated with VKA drugs, such as warfarin, the [place] [employer] 2012 Guideline recommends a therapeutic INR range of 2 to 3 (target INR of 2.5). This recommendation includes high-risk patients with antiphospholipid syndrome with previous arterial or venous thromboembolism, current-generation mechanical or bioprosthetic aortic heart valve replacement. Note: Patients with mechanical aortic valve replacement and additional risk factors for thromboembolic events (atrial fibrillation, previous thromboembolism, LV dysfunction, hypercoagulable conditions) or an older generation mechanical AVR (i.e., ball in-Cage) or any mechanical MVR should have a INR therapeutic range of 2.5 to 3.5 (target INR of 3). Lance GH, et al. Chest 2012, 141:7S-47S Deshawn RA, et al. [facility] 2017, 70: 252-289 Performed By: #### C CBF, [id number] #### [facility] CLIA [id number] [address] [place] [address] [place] PT Coag (PPP) [Time] 22.3 s High 9.7-13.0 [facility] Comment on above: Order Comment: Speci men Type: FLUID SPECIMEN Ordering Facility: [facility] Address: [address] [place] [address] Performed By: #### C CBF, [id number] #### [facility] CLIA [id number] [address] [place] [address] [place] PTH-Intact SerPl-ncon 09- Parathyrin.intact [Mass/Vol] 17 pg/mL Normal 15-65 [facility] Comment on above: Order Comment: Speci men Type: BLOOD SPECIMENOrdering Facility: [facility] Address: [address] [place] [address] Performed By: #### 2 731-8 ####[facility] [id number] [place] [address] [place] Phosphate SerPl-mCncon 05-11 Phosphate [Mass/Vol] 2.8 mg/dL Normal 2.7-4.8 [facility] Comment on above: Order Comment: Speci men Type: BLOOD SPECIMENOrdering Facility: [facility] Address: [address] [place] [address] Performed By: #### 2 4323-8, 2777-1, 97986-4 ####[facility] [id number] [place] [address] [place] Prot Fld-mCncon 05-11-2024 Protein (Body fld) [Mass/Vol] 1.5 g/dL Normal See Comment [facility] Comment on above: Order Comment: Speci men Type: FLUID SPECIMENOrdering Facility: [facility] Address: [address] [place] [address] Result Comment: Sero us fluids: Effusions are the accumulation of clinically detected fluid in any of the serous cavities. Effusions are further into transudates and exudates, which aid in determining the etiology of the effusion. Transudate: Body fluid total protein measurement < 3.0 g/dL. A ratio of serous fluid total protein to a concurrent serum total protein < 0.5 indicates a transudate. Exudate: Body fluid total protein measurement >= 3.0 g/dL. A ratio of serous fluid total protein to a concurrent serum total protein >= 0.5 indicates an exudate. Reference: 1. CLSI. Analysis of Body Fluids in Clinical Chemistry Approved Guideline. CLSI document C49A. SLIM Rm: Clinical Laboratory Standards [place]: 2007. Performed By: #### 1 795-4, 56896-7, 2881-1 ####[facility] [id number] [place] [address] [place] Prot/Creat Uron 05-11-2024 Protein/Creatinine (U) [Mass ratio] 0.29 mg/mg High <0.15 [facility] Comment on above: Order Comment: Speci men Type: URINE SPECIMENOrdering Facility: [facility] Address: [address] [place] [address] Result Comment: Adul t Proteinuria Categories: <0.15 mg/mg is considered normal to mildly increased 0.15 - 0.50 mg/mg is considered moderately increased >0.50 mg/mg is considered severely increased KDIGO. (2013). KDIGO 2012 Clinical Practice Guideline for the Evaluation and Management of Chronic Kidney Disease. Official Journal of the International Society of Nephrology, 3(1), 1-150. Performed By: #### U UNR, 80455-1, 2105-10, UTOX2, 2889-09 ####[facility] [id number] [place] [id number] [place] Protein/Creatinine (U) [Mass ratio]on 05-11-2024 Creatinine (U) [Mass/Vol] 106.4 mg/dL Normal 20.0-300.0 [facility] Comment on above: Order Comment: Speci men Type: URINE SPECIMENOrdering Facility: [facility] Address: [address] [place] [address] Performed By: #### U UNR, 15905-4, 2105-10, UTOX2, 2 ####[facility] [id number] [place] [id number] [place] Protein (U) [Mass/Vol] 31 mg/dL High 0-20 [facility] Comment on above: Order Comment: Speci men Type: URINE SPECIMENOrdering Facility: [facility] Address: [address] [place] [address] Performed By: #### U UNR, 80875-9, 2106-3, UTOX2, 2890-2 ####[facility] [id number] [place] [address] [place] SEPSIS LACTATEon 05-11-2024 Lactate [Moles/Vol] 5.6 mmol/L High <=2.0 [facility] Comment on above: Order Comment: Speci men Type: BLOOD SPECIMENOrdering Facility: [facility] Address: [address] [place] [address] Performed By: #### S LACT ####[facility] [id number] [place] [address] [place] SOCIAL WORKon 05-11-2024 SOCIAL WORK HNO ID: [id number] Author: GLEN MCPHERSON LISW Service: Transplant Author Type: Metal Template Maker Type: Social Work Filed: 05/11/2024 21:13 Note Text: Orthotopic Liver Transplant (OLT) Psychosocial Evaluation Patient: Cielo Mcfarlane Date Evaluated: May 11, 2024 Patient consents to participate in psychosocial evaluation for liver transplant: Pt is too sick to participate Patient agrees to have the following present during evaluation: Contacted her Jay by phone. Patient Location: Currently admitted to ICU Identifying Information: Pt prefers to be called: Cielo Preferred pronoun: her Age: [age] year old Ethnicity: White - White//Europ amber Heritage [place] Citizen: Yes Preferred Language: Colombian Lives now: Cielo Mcfarlane [phone] [place] [address], Over an hour. [email or web address] Impressions: Social Support- Pt's Jay states that he plans to be her primary caregiver. He works full-time but states he has access to paid leave and his employer is supportive. He will have secondary help from their adult son Damion and Pt's mother in law Vi who is retired. Pt appears to have sufficient support for transplant. Insurance/Financial- Pt has active insurance through [facility] from her 's employer. 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 He denied any current financial difficulties. They live a little over an hour away so likely would be able to return home for Pt's recovery. No current barriers are identified. Chemical Dependency- History is very limited as Pt is unable to participate in interview herself. denies any history of illicit substance use. He states she smoked cigarettes in high school but quit in . Pt herself has described binge use of alcohol in the past according to her chart but never defined quantity or frequency of this. She had noted cutting back. reports their use in the past as once a week when out with friends. He states that a few years ago both he and Pt made some lifestyle changes that included no drinking and an improved diet and lifestyle. He believes she stayed with it. He worked long hours so could not account for Pt's habits or routine during the daytime. He states that their children who live in the home deny that she was drinking. He did search their home after her admission due to the implication that her condition could be alcohol-related and reports that he found no evidence of her drinking prior to admission. Her blood alcohol level was negative but PEth is pending still and may not result for a couple more days. denies that he has ever had concern about Pt's alcohol use and that he ever noticed any changes in her behavior at home or failure to follow through on her responsibilities. Though her clinical picture is highly concerning for alcohol-related liver disease, there is currently not enough evidence available to diagnose her with Alcohol Use Disorder and she would therefore meet our chemical dependency guidelines at this time. Will need to continue to follow PEth results and complete interview directly with Pt if her mentation allows. She will also need monitoring post-transplant. 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 He denies any other concerns about her mood or behavioral health. He states that Pt has strong supports from her daughters, mother and sister. No current concerns are identified. Compliance- Pt was seeing her PCP regularly for years and per it appears she had a good relationship. SW is unable to view documentation from these visits so additional collateral is unavailable. He states that Pt did try to tell her son not to call EMS when she fell at home but believes she was already starting to have confusion at that time. She managed scheduling her own appointments as well as appointments for the household so believes she would be able to manage this for herself in the long-term. No current concerns are identified. Comprehension of Medical Issues and Transplant- Unable to assess with Pt. has participated in education and believes she would want to proceed. They are expecting a grand child in the next month and he believes this is motivation enough for her to get through surgery. He understands that this will involve taking medication and regular follow up post-transplant and feels Pt will follow through. SIPAT Total Score: SIPAT Total Score: 27 SIPAT Score Interpretation 0 - 6 Excellent candidate Recommend to list for transplantation without reservations. 7 (more content not included)... Normal [facility] STAPHYLOCOCCUS AUREUS AND MR SA SCREEN, PCR, NASALon 05-11-2024 S. aureus and MRSA panel SHERRIE+probe (Nose) Methicillin-SUSCEPTIB LE Staphylococcus aureus Detected Abnormal Not Detected [facility] Comment on above: Order Comment: Speci men Type: SWABOrdering Facility: [facility] Address: [address] [place] [address] Performed By: #### S APCR ####[facility] [id number] [facility] [id number] [address] [place] Sodium ?Tm Ur-sCncon 024 Sodium Unsp time (U) [Moles/Vol] 24 mmol/L Normal 14-216 [facility] Comment on above: Order Comment: Speci men Type: URINE SPECIMENOrdering Facility: [facility] Address: [address] [place] [address] Performed By: #### U UNR, 26499-0, 2106-3, UTOX2, 2890-2 ####[facility] [id number] [place] [address] [place] THROMBOGRAPH PANELon 05-11- 024 Clot angle TEG (Bld) [Angle] 71.1 degrees Normal 47.0-74.0 [facility] Comment on above: Order Comment: Speci men Type: FLUID SPECIMEN Ordering Facility: [facility] Address: [address] [place] [address] Performed By: #### C CBF, [id number] #### [facility] CLIA [id number] [address] [place] [address] [place] Clot Lysis 30 Min post maximum clot amplitude TEG (Bld) [Length fraction] 0.0 % Normal 0.0-8.0 [facility] Comment on above: Order Comment: Speci men Type: FLUID SPECIMEN Ordering Facility: [facility] Address: [address] [place] [address] Performed By: #### C CBF, [id number] #### [facility] CLIA [id number] [address] [place] [address] [place] Clotting time TEG (Bld) 3.5 minutes Low 4.0-10.0 [facility] Comment on above: Order Comment: Speci men Type: FLUID SPECIMEN Ordering Facility: [facility] Address: [address] [place] [address] Performed By: #### C CBF, [id number] #### [facility] CLIA [id number] [address] [place] [address] [place] Coagulation index TEG Qn (Bld) 2.3 Normal -4.6-3.2 [facility] Comment on above: Order Comment: Speci men Type: FLUID SPECIMEN Ordering Facility: [facility] Address: [address] [place] [address] Result Comment: The Coagulation Index, a secondary parameter, is labeled by the sound controller as for research use only and is used per the sound controller's instructions. Its performance characteristics were determined by [facility]'s Yosvany [facility] [place] in a manner consistent with CLIA requirements. This test has not been cleared by the U.S. Food and Drug Administration. Performed By: #### C CBF, [id number] #### [facility] CLIA [id number] [address] [place], [place] [address] [place] [address] [place] Maximum clot firmness TEG (Bld) [Length] 61.2 mm Normal 51.0-75.0 [facility] Comment on above: Order Comment: Speci men Type: FLUID SPECIMEN Ordering Facility: [facility] Address: [address] [place] [address] Performed By: #### C CBF, [id number] #### [facility] CLIA [id number] [address] [place] [address] [place] Thromboelastography after addtion of heparinase panel (Bld) Normal [facility] Comment on above: Order Comment: Kofi wright Type: FLUID SPECIMEN Ordering Facility: [facility] Address: [address] [place] [address] Result Comment: A th romboelastograph (TEG) study was performed using citrate-anticoagulated whole blood. The R value, a measure of coagulation function, is short. This indicates coagulation hyperfunction. This could be seen with high levels of coagulation factors, coagulation activation, or inadequate anticoagulation. The angle, a measure of fibrinogen function, is within normal range. This is indicative of normal fibrinogen concentration or function. The Maximal Amplitude (MA), a measure of platelet function, is within the normal range. The Ly30, a measure of fibrinolysis, is normal. This is indicative of normal fibrinolytic function. The coagulation index (CI), a measure of hemostasis function, is within the normal range. The CI is a calculated parameter based on the other TEG results. Viscoelastic testing is not intended for the monitoring of anticoagulation or antiplatelet medications or the diagnosis and/or management of platelet disorders and/or coagulopathies but may be useful for guiding blood product utilization in emergency and urgent (OR) circumstances when routine coagulation and cell blood counts are not available in a timely manner. Performed By: #### C CBF, [id number] #### [facility] CLIA [id number] [address] [place], [place] [address] [place] [address] [place] TOXICOLOGY PANEL BLDon 05-11 Acetaminophen [Mass/Vol] ug/mL Low 10-30 [facility] Comment on above: Order Comment: Kofi wright Type: BLOOD SPECIMENOrdering Facility: [facility] Address: [address] [place] [address] Result Comment: Toxi c > 150 ug/mL 4 hours post ingestion The Lora Bland nomogram can be used to estimate the probability of hepatotoxicity via the relationship of plasma acetaminophen concentration to the post ingestion interval. (Leela. Pediatrics. 1975. 55:871 to 876 and Lora et al. [employer] Sander Med. 1981. 141:380 to 385). Reference ranges and high/low indicator flags are provided as general guidelines only. The treating physician must determine appropriate target levels/dosing based on the specific clinical situation. Performed By: #### T OXP ####[facility] [id number] [place] [address] [place] Ethanol [Mass/Vol] mg/dL Normal <11 [facility] Comment on above: Order Comment: Kofi wright Type: BLOOD SPECIMENOrdering Facility: [facility] Address: [address] [place] [address] Performed By: #### T OXP ####[facility] [id number] [place] [address] [place] Salicylates [Mass/Vol] mg/dL Low 3.0-30.0 [facility] Comment on above: Order Comment: Kofi wright Type: BLOOD SPECIMENOrdering Facility: [facility] Address: [address] [place] [address] Result Comment: The therapeutic range varies and has been reported to be 3.0 to 10.0 mg/dL for anti pyretic/analgesic conditions and 15.0 to 30.0 mg/dL for anti inflammatory/rheumatic fever conditions. Ranges published by the instrument sound controller. Reference ranges and high/low indicator flags are provided as general guidelines only. The treating physician must determine appropriate target levels/dosing based on the specific clinical situation. Performed By: #### T OXP ####[facility] [id number] [place] [address] [place] TOXICOLOGY SCREEN, ROUTINE U RINEon 05-11-2024 Amphetamines Confirm (U) [Mass/Vol] Negative Normal Negative [facility] Comment on above: Order Comment: Speci men Type: URINE SPECIMENOrdering Facility: [facility] Address: [address] [place] [address] Result Comment: Cuto ff threshold at 1000 ng/mL. Performed By: #### U UNR, 93026-5, 2105-10, UTOX2, 2890-2 ####[facility] [id number] [place] [address] [place] BARBITURATES, URINE Negative Normal Negative [facility] Comment on above: Order Comment: Speci men Type: URINE SPECIMENOrdering Facility: [facility] Address: [address] [place] [address] Result Comment: Cuto ff threshold at 200 ng/mL. Performed By: #### U UNR, 94663-4, 2105-10, UTOX2, 2890-2 ####[facility] LABCLIA [id number] [place] [address] [place] BENZODIAZEPINES, UR Negative Normal Negative [facility] Comment on above: Order Comment: Speci men Type: URINE SPECIMENOrdering Facility: [facility] Address: [address] [place] [address] Result Comment: Cuto ff threshold at 200 ng/mL. Performed By: #### U UNR, 07520-1, 2105-10, UTOX2, 2890-2 ####[facility] LABCLIA [id number] [facility] [address] [place] Cannabinoids Screen Ql (U) Negative Normal Negative [facility] Comment on above: Order Comment: Speci men Type: URINE SPECIMENOrdering Facility: [facility] Address: [address] [place] [address] Result Comment: Cuto ff threshold at 50 ng/mL. Performed By: #### U UNR, 82562-2, 2106-3, UTOX2, 2890-2 ####[facility] LABCLIA [id number] [place] [address] [place] Cocaine Ql (U) Negative Normal Negative [facility] Comment on above: Order Comment: Speci men Type: URINE SPECIMENOrdering Facility: [facility] Address: [address] [place] [address] Result Comment: Cuto ff threshold at 300 ng/mL. Performed By: #### U UNR, 32361-0, 210-3, UTOX2, 2890-2 ####[facility] LABIA [id number] [place] [address] [place] Ethanol (U) [Mass/Vol] <11 Normal <11 [facility] Comment on above: Order Comment: Speci men Type: URINE SPECIMENOrdering Facility: [facility] Address: [address] [place] [address] Performed By: #### U UNR, 57334-2, 210-3, UTOX2, 2890-2 ####[facility] LABCLIA [id number] [place] [address] [place] Opiates Screen Ql (U) Positive Abnormal Negative [facility] Comment on above: Order Comment: Speci men Type: URINE SPECIMENOrdering Facility: [facility] Address: [address] [place] [address] Result Comment: Cuto ff threshold at 300 ng/mL. Performed By: #### U UNR, 47396-2, 2106-3, UTOX2, 2890-2 ####[facility] LABCLIA [id number] [place] [address] [place] oxyCODONE cutoff Screen (U) [Mass/Vol] Negative Normal Negative [facility] Comment on above: Order Comment: Speci men Type: URINE SPECIMENOrdering Facility: [facility] Address: [address] [place] [address] Result Comment: Cuto ff threshold at 100 ng/mL. Performed By: #### U UNR, 01124-0, 2106-3, UTOX2, 2890-2 ####[facility] LABCLIA [id number] [place] [address] [place] Phencyclidine Ql (U) Negative Normal Negative [facility] Comment on above: Order Comment: Speci men Type: URINE SPECIMENOrdering Facility: [facility] Address: [address] [place] [address] Result Comment: Cuto ff threshold at 25 ng/mL. Performed By: #### U UNR, 24095-4, 2105-3, UTOX2, 2890-2 ####[facility] LABCLIA [id number] [place] [address] [place] TRANSPLANT CONFIRM ABO/RHon 05-11-[address] [facility] Comment on above: Order Comment: Speci men Type: BLOOD SPECIMENOrdering Facility: [facility] Address: [address] [place] [address] Performed By: #### T RCABO ####CC [facility] BLOOD BANKIA [id number] [place] [address] [place] Rh Nom (Bld) Negative Normal [facility] Comment on above: Order Comment: Speci men Type: BLOOD SPECIMENOrdering Facility: [facility] Address: [address] [place] [address] Performed By: #### T RCABO ####[facility] BLOOD BANKIA [id number] [place] [address] [place] TSH SerPl-aCncon 05-11-2024 TSH Qn 3.390 m[IU]/L Normal 0.270-4.200 [facility] Comment on above: Order Comment: Kofi wright Type: BLOOD SPECIMENOrdering Facility: [facility] Address: [address] [place] [address] Result Comment: If t he patient is , TSH reference range varies by gestational period: First Trimester (weeks 9-12): 0.180-2.990 mIU/L Second Trimester: 0.110-3.980 mIU/L Third Trimester: 0.480-4.710 mIU/L Ant Cruz et al. A Practical Approach for the Verifications and Determination of Site- and Trimester-Specific Reference Intervals for Thyroid Function tests in . Thyroid, 2019:29:3:412-420. Gasper Tong, et al. 2017 Guidelines of the [place] Thy[employer] for the Diagnosis and Management of Thyroid Disease during and the . Thyroid, 2017:27:3:315-389. Performed By: #### 2 064-4, 3016-3 ####[facility] LABCLIA [id number] [place] [address] [place] TYPE + SCREENon 05-11-[address] [facility] Comment on above: Order Comment: Kofi wright Type: VENOUS BLOOD SPECIMEN [facility] Address: [address] [place] [address] Performed By: #### 2 4344-4 #### [facility] CLIA [id number] [address] [place] [address] [place] Rh Nom (Bld) Negative Normal [facility] Comment on above: Order Comment: Kofi wright Type: VENOUS BLOOD SPECIMEN [facility] Address: [address] [place] [address] Performed By: #### 2 4344-4 #### [facility] CLIA [id number] [address] [place] [address] [place] TYPE AND SCREEN EXPIRATION 05/14/2024 23:[address] [facility] Comment on above: Order Comment: Speci men Type: VENOUS BLOOD SPECIMEN [facility] Address: [address] [place] [address] Performed By: #### 2 4344-4 #### [facility] CLIA [id number] [address] [place] [address] [place] Trigl Fld-mCncon 05-11-2024 Triglyceride (Body fld) [Mass/Vol] 44 mg/dL Normal [facility] Comment on above: Order Comment: Speci men Type: FLUID SPECIMENOrdering Facility: [facility] Address: [address] [place] [address] Result Comment: Syno vial fluids: Synovial fluid triglycerides measurement may be useful in classifying various joint disorders. ???The reference range for adult synovial fluid triglycerides measurement is <=40% of the concurrent plasma cholesterol measurement. Serous fluids: Serous fluid triglycerides measurement may be useful in classifying the effusion as chylous or nonchylous. ???A serous fluid triglycerides measurement >110 mg/dL is suggestive of a chylous effusion. ???A serous fluid triglycerides measurement <=110 mg/dL is suggestive of a nonchylous effusion. Reference: 1. CLSI. Analysis of Body Fluids in Clinical Chemistry; Approved Guideline. CLSI document C49A. SLIM Rm: Clinical Laboratory Standards [place]; 2007. Performed By: #### 1 795-4, 96928-2, 2881-1 ####[facility] LABCLIA [id number] [place] [address] [place] UREA NITROGEN, RANDOM URINEo n 05-11-2024 UREA NITROGEN,UR,RAN 404 mg/dL Normal 140-1500 [facility] Comment on above: Order Comment: Speci men Type: URINE SPECIMENOrdering Facility: [facility] Address: [address] [place] [address] Performed By: #### U UNR, 45819-3, 2106-3, UTOX2, 2890-2 ####[facility] LABCLIA [id number] [place] [address] [place] US ABD LIVER VASCULARon 09-2 US ABD LIVER VASCULAR * * *Final Report* * * DATE OF EXAM: May 11 2024 5:45PM [facility] 1233 - US ABD LIVER VASCULAR / PROCEDURE REASON: Portal hypertension * * * * Physician Interpretation * * * * EXAMINATION: LIVER VASCULAR ULTRASOUND WITH DOPPLER IMAGING CLINICAL HISTORY: Portal hypertension TECHNIQUE: Sonography of the liver with color and spectral Doppler imaging of the hepatic vasculature was performed. Images were obtained and stored in a permanent archive. MQ: USLV_1 COMPARISON: 05/10/2024 CT RESULT: Sonographic Findings: Pancreas: Normal sonographic appearance. Portions obscured: tail Liver: Echotexture: Coarse Echogenicity: Heterogeneous Surface contour: Nodular Lesions: None. Biliary: No intrahepatic biliary duct dilation. CBD: 0.4 cm at the hilum. Gallbladder: Normal caliber -Contents: Sludge present -Wall: Gallbladder wall thickening, nonspecific in the setting of cirrhosis. -Other: No pericholecystic fluid. Right Kidney: No hydronephrosis. Spleen: Not discretely identified. Other: Small volume ascites. HEPATIC VASCULATURE: PORTAL SYSTEM: -Splenic Vein: Obscured at the splenic hilum and at midline. -Main PV: Patent with normal, phasic antegrade flow (towards liver). 24 cm/sec -Right anterior PV: Patent with phasic antegrade flow (towards liver). -Right posterior PV: Patent with phasic antegrade flow (towards liver). -Left PV: Patent with phasic antegrade flow (towards liver). Splenorenal shunt: Area obscured Recanalized paraumbilical vein: Present HEPATIC ARTERIES: - Main LOYD: Normal waveform PSV: 276 cm/sec. RI: 0.76 - Right anterior LOYD: Normal waveform - Right posterior LOYD: Normal waveform - Left LOYD: Normal waveform HEPATIC VEINS: -Left: Patent with phasic waveform. -Middle: Patent with phasic waveform. -Right: Patent with phasic waveform. IVC: Patent with normal, phasic wave form. IMPRESSION: Splenic vein is obscured. Otherwise patent hepatic vasculature with appropriately directed flow. Recanalized umbilical vein. Cirrhotic liver morphology with findings compatible with portal hypertension. Small volume ascites. Outreach Manager: COLIN Transcribe Date/Time: May 11 2024 6:42P Dictated by : SCOTTIE RODRIGUEZ DO This examination was interpreted and the report reviewed and electronically signed by: HIPOLITO BANKS MD on May 11 2024 8:16PM EST [id number] N Normal [facility] US DOPPLER COMPLETEon 2023 US DOPPLER COMPLETE * * *Final Report* * * DATE OF EXAM: May 11 2024 6:15PM [facility] 1033 - US DOPPLER COMPLETE / PROCEDURE REASON: Portal hypertension * * * * Physician Interpretation * * * * EXAMINATION: LIVER VASCULAR ULTRASOUND WITH DOPPLER IMAGING CLINICAL HISTORY: Portal hypertension TECHNIQUE: Sonography of the liver with color and spectral Doppler imaging of the hepatic vasculature was performed. Images were obtained and stored in a permanent archive. MQ: USLV_1 COMPARISON: 05/10/2024 CT RESULT: Sonographic Findings: Pancreas: Normal sonographic appearance. Portions obscured: tail Liver: Echotexture: Coarse Echogenicity: Heterogeneous Surface contour: Nodular Lesions: None. Biliary: No intrahepatic biliary duct dilation. CBD: 0.4 cm at the hilum. Gallbladder: Normal caliber -Contents: Sludge present -Wall: Gallbladder wall thickening, nonspecific in the setting of cirrhosis. -Other: No pericholecystic fluid. Right Kidney: No hydronephrosis. Spleen: Not discretely identified. Other: Small volume ascites. HEPATIC VASCULATURE: PORTAL SYSTEM: -Splenic Vein: Obscured at the splenic hilum and at midline. -Main PV: Patent with normal, phasic antegrade flow (towards liver). 24 cm/sec -Right anterior PV: Patent with phasic antegrade flow (towards liver). -Right posterior PV: Patent with phasic antegrade flow (towards liver). -Left PV: Patent with phasic antegrade flow (towards liver). Splenorenal shunt: Area obscured Recanalized paraumbilical vein: Present HEPATIC ARTERIES: - Main LOYD: Normal waveform PSV: 276 cm/sec. RI: 0.76 - Right anterior LOYD: Normal waveform - Right posterior LOYD: Normal waveform - Left LOYD: Normal waveform HEPATIC VEINS: -Left: Patent with phasic waveform. -Middle: Patent with phasic waveform. -Right: Patent with phasic waveform. IVC: Patent with normal, phasic wave form. IMPRESSION: Splenic vein is obscured. Otherwise patent hepatic vasculature with appropriately directed flow. Recanalized umbilical vein. Cirrhotic liver morphology with findings compatible with portal hypertension. Small volume ascites. Outreach Manager: COLIN Transcribe Date/Time: May 11 2024 6:42P Dictated by : SCOTTIE RODRIGUEZ DO This examination was interpreted and the report reviewed and electronically signed by: HIPOLITO BANKS MD on May 11 2024 8:16PM EST [id number] N Normal [facility] Urinalysis complete panel (U )on 05-11-2024 Bacteria LM.HPF (Urine sed) [#/Area] Negative Normal Negative [facility] Comment on above: Order Comment: Speci men Type: URINE SPECIMENOrdering Facility: [facility] Address: [address] [place] [address] Performed By: #### 2 4356-8 ####[facility] LABIA [id number] [place] [address] [place] Bilirubin Ql (U) 3+ Abnormal Negative [facility] Comment on above: Order Comment: Speci men Type: URINE SPECIMENOrdering Facility: [facility] Address: [address] [place] [address] Result Comment: Sugg est correlation with clinical findings and serum bilirubin if clinically indicated. Performed By: #### 2 4356-8 ####[facility] LABIA [id number] [place] [address] [place] Clarity (Unsp spec) Cloudy Abnormal Clear [facility] Comment on above: Order Comment: Speci men Type: URINE SPECIMENOrdering Facility: [facility] Address: [address] [place] [address] Performed By: #### 2 4356-8 ####[facility] LABCLIA [id number] [place] [address] [place] Color (U) Dark Yellow Abnormal Yellow [facility] Comment on above: Order Comment: Speci men Type: URINE SPECIMENOrdering Facility: [facility] Address: [address] [place] [address] Performed By: #### 2 4356-8 ####[facility] LABCLIA [id number] [place] [address] [place] Epithelial cells LM.HPF (Urine sed) [#/Area] None Seen Normal [facility] Comment on above: Order Comment: Speci men Type: URINE SPECIMENOrdering Facility: [facility] Address: [address] [place] [address] Performed By: #### 2 4356-8 ####[facility] LABCLIA [id number] [place] [address] [place] Glucose Test strip (U) [Mass/Vol] Negative Normal Negative [facility] Comment on above: Order Comment: Speci men Type: URINE SPECIMENOrdering Facility: [facility] Address: [address] [place] [address] Performed By: #### 2 4356-8 ####[facility] LABCLIA [id number] [place] [address] [place] Granular casts (Urine sed) [#/Area] 4-10 /LPF Abnormal 0 /LPF [facility] Comment on above: Order Comment: Speci men Type: URINE SPECIMENOrdering Facility: [facility] Address: [address] [place] [address] Performed By: #### 2 4356-8 ####[facility] LABCLIA [id number] [place] [address] [place] Hemoglobin Ql (U) Negative Normal Negative [facility] Comment on above: Order Comment: Speci men Type: URINE SPECIMENOrdering Facility: [facility] Address: [address] [place] [address] Performed By: #### 2 4356-8 ####[facility] LABCLIA [id number] [place] [address] [place] Hyaline casts (Urine sed) [#/Area] /[LPF] Abnormal 0 /LPF [facility] Comment on above: Order Comment: Speci men Type: URINE SPECIMENOrdering Facility: [facility] Address: [address] [place] [address] Performed By: #### 2 4356-8 ####[facility] LABCLIA [id number] [place] [address] [place] Ketones Ql (U) Trace Abnormal Negative [facility] Comment on above: Order Comment: Speci men Type: URINE SPECIMENOrdering Facility: [facility] Address: [address] [place] [address] Performed By: #### 2 4356-8 ####[facility] LABCLIA [id number] [place] [address] [place] Leukocyte esterase Test strip Ql (U) 2+ Abnormal Negative [facility] Comment on above: Order Comment: Speci men Type: URINE SPECIMENOrdering Facility: [facility] Address: [address] [place] [address] Performed By: #### 2 4356-8 ####[facility] LABCLIA [id number] [place] [address] [place] Nitrite Ql (U) Positive Abnormal Negative [facility] Comment on above: Order Comment: Speci men Type: URINE SPECIMENOrdering Facility: [facility] Address: [address] [place] [address] Performed By: #### 2 4356-8 ####[facility] LABCLIA [id number] [place] [address] [place] pH (U) 5.0 [pH] Normal <8.5 [facility] Comment on above: Order Comment: Speci men Type: URINE SPECIMENOrdering Facility: [facility] Address: [address] [place] [address] Performed By: #### 2 4356-8 ####[facility] LABCLIA [id number] [place] [address] [place] Protein (U) [Mass/Vol] Trace Abnormal Negative [facility] Comment on above: Order Comment: Speci men Type: URINE SPECIMENOrdering Facility: [facility] Address: [address] [place] [address] Performed By: #### 2 4356-8 ####[facility] [id number] [place] [address] [place] RBC LM.HPF (Urine sed) [#/Area] 3-5 /HPF Abnormal 0-2 /HPF [facility] Comment on above: Order Comment: Speci men Type: URINE SPECIMENOrdering Facility: [facility] Address: [address] [place] [address] Performed By: #### 2 4356-8 ####[facility] [id number] [place] [address] [place] Specific gravity (U) [Rel density] 1.019 Normal 1.005-1.030 [facility] Comment on above: Order Comment: Speci men Type: URINE SPECIMENOrdering Facility: [facility] Address: [address] [place] [address] Performed By: #### 2 4356-8 ####[facility] [id number] [place] [address] [place] Urobilinogen Ql (U) 1.0 EU/dL Normal 0.2-1.0 EU/dL [facility] Comment on above: Order Comment: Speci men Type: URINE SPECIMENOrdering Facility: [facility] Address: [address] [place] [address] Performed By: #### 2 4356-8 ####[facility] LABIA [id number] [place] [address] [place] WBC LM.HPF (Urine sed) [#/Area] 0-5 /HPF Normal 0-5 /HPF [facility] Comment on above: Order Comment: Speci men Type: URINE SPECIMENOrdering Facility: [facility] Address: [address] [place] [address] Performed By: #### 2 4356-8 ####[facility] LABCLIA [id number] [place] [address] [place] XR ABDOMEN 1V SUPINEon 05-11 XR ABDOMEN 1V SUPINE * * *Final Report* * * DATE OF EXAM: May 11 2024 2:15PM CARMELITA 5289 - XR ABDOMEN 1V SUPINE / PROCEDURE REASON: Abdominal distension * * * * Physician Interpretation * * * * PORTABLE KUB ON 05/11/2024 at 1358 HISTORY: Abdominal distention COMPARISON: None TECHNIQUE: Supine abdomen, 1 view(s); 2 image(s) RESULT: IMPRESSION: Scattered gas-filled nondilated colonic loops. No dilated small bowel loops. Small amount of gas in the stomach. Outreach Manager: COLIN Transcribe Date/Time: May 11 2024 2:36P Dictated by : HIPOLITO BANKS MD This examination was interpreted and the report reviewed and electronically signed by: HIPOLITO BANKS MD on May 11 2024 2:37PM EST [id number] N Normal [facility] Complete Blood Count with Au to Diffon 12-28-2021 Basophils (Bld) [#/Vol] 0.03 10*3/uL Normal 0.00-0.20 [facility] Comment on above: Performed By: #### T SH reflex FT4, RF, CBCAD, LIPD, CMP #### [facility] [address] [place], [place] [id number] Basophils/100 WBC (Bld) 0.5 % Normal [facility] Comment on above: Performed By: #### T SH reflex FT4, RF, CBCAD, LIPD, CMP #### [facility] [address] [place], [place] [id number] Eosinophils (Bld) [#/Vol] 0.21 10*3/uL Normal 0.02-0.50 [facility] Comment on above: Performed By: #### T SH reflex FT4, RF, CBCAD, LIPD, CMP #### [facility] [address] [place], [place] [id number] Eosinophils/100 WBC (Bld) 3.8 % Normal [facility] Comment on above: Performed By: #### T SH reflex FT4, RF, CBCAD, LIPD, CMP #### [facility] [address] [place], [place] [id number] Erythrocyte distribution width (RBC) [Ratio] 11.9 % Normal 11.0-15.0 [facility] Special[facility] Comment on above: Performed By: #### T SH reflex FT4, RF, CBCAD, LIPD, CMP #### [facility] [address] [place], [place] [id number] Hematocrit (Bld) [Volume fraction] 40.7 % Normal 35.0-47.0 [facility] Special[facility] Comment on above: Performed By: #### T SH reflex FT4, RF, CBCAD, LIPD, CMP #### [facility] [address] [place], [place] [id number] Hemoglobin (Bld) [Mass/Vol] 13.5 g/dL Normal 11.6-15.5 [facility] Specialist Comment on above: Performed By: #### T SH reflex FT4, RF, CBCAD, LIPD, CMP #### [facility] [address] [place], [place] [id number] Lymphocytes (Bld) [#/Vol] 1.6 10*3/uL Normal 0.9-3.9 [facility] Specialist Comment on above: Performed By: #### T SH reflex FT4, RF, CBCAD, LIPD, CMP #### [facility] [address] [place], [place] [id number] Lymphocytes/100 WBC (Bld) 28.2 % Normal [facility] Specialist Comment on above: Performed By: #### T SH reflex FT4, RF, CBCAD, LIPD, CMP #### [facility] [address] [place], [place] [id number] MCH (RBC) [Entitic mass] 32.2 pg Normal 27.0-33.0 [facility] Specialist Comment on above: Performed By: #### T SH reflex FT4, RF, CBCAD, LIPD, CMP #### [facility] [address] [place], [place] [id number] MCHC (RBC) [Mass/Vol] 33.2 g/dL Normal 32.0-36.0 [facility] Comment on above: Performed By: #### T SH reflex FT4, RF, CBCAD, LIPD, CMP #### [facility] [address] [place], [place] [id number] MCV (RBC) [Entitic vol] 97 fL Normal 80-100 [facility] Comment on above: Performed By: #### T SH reflex FT4, RF, CBCAD, LIPD, CMP #### [facility] [address] [place], [place] [id number] Monocytes (Bld) [#/Vol] 0.3 10*3/uL Normal 0.2-0.9 [facility] Comment on above: Performed By: #### T SH reflex FT4, RF, CBCAD, LIPD, CMP #### [facility] [address] [place], [place] [id number] Monocytes/100 WBC (Bld) 5.4 % Normal [facility] Comment on above: Performed By: #### T SH reflex FT4, RF, CBCAD, LIPD, CMP #### [facility] [address] [place], [place] [id number] Neutrophils (Bld) [#/Vol] 3.5 10*3/uL Normal 1.5-7.8 [facility] Comment on above: Performed By: #### T SH reflex FT4, RF, CBCAD, LIPD, CMP #### [facility] [address] [place], [place] [id number] Neutrophils/100 WBC (Bld) 61.7 % Normal [facility] Comment on above: Performed By: #### T SH reflex FT4, RF, CBCAD, LIPD, CMP #### [facility] [address] [place], [place] [id number] Platelet mean volume (Bld) [Entitic vol] 12.30 fL Normal 7.50-12.50 [facility] Specialist Comment on above: Performed By: #### T SH reflex FT4, RF, CBCAD, LIPD, CMP #### [facility] [address] [facility] [place] [id number] Platelets (Bld) [#/Vol] 129 10*3/uL Low 140-400 [facility] Specialist Comment on above: Performed By: #### T SH reflex FT4, RF, CBCAD, LIPD, CMP #### [facility] [address] [place], [place] [id number] RBC (Bld) [#/Vol] 4.19 10*6/uL Normal 3.90-5.20 [facility] Comment on above: Performed By: #### T SH reflex FT4, RF, CBCAD, LIPD, CMP #### [facility] [address] [place], [place] [id number] RDW-SD 42.9 fL Normal 37.0-50.0 [facility] Specialist Comment on above: Performed By: #### T SH reflex FT4, RF, CBCAD, LIPD, CMP #### [facility] [address] [place], [place] [id number] WBC (Bld) [#/Vol] 5.6 10*3/uL Normal 3.8-11.0 [facility] Specialist Comment on above: Performed By: #### T SH reflex FT4, RF, CBCAD, LIPD, CMP #### [facility] [address] [place], [place] [id number] Comprehensive Metabolic Pane [facility] 12-28-2021 Albumin [Mass/Vol] 4.6 g/dL Normal 3.6-5.1 [facility] Club Attendant Comment on above: Performed By: #### T SH reflex FT4, RF, CBCAD, LIPD, CMP #### [facility] [address] [place], [place] [id number] Albumin/Globulin [Mass ratio] 1.6 {ratio} Normal 1.0-2.5 [facility] Specialist Comment on above: Performed By: #### T SH reflex FT4, RF, CBCAD, LIPD, CMP #### [facility] [address] [place], [place] [id number] ALP [Catalytic activity/Vol] 306 U/L High 35-119 [facility] Specialist Comment on above: Performed By: #### T SH reflex FT4, RF, CBCAD, LIPD, CMP #### [facility] [address] [place], [place] [id number] ALT [Catalytic activity/Vol] 69 U/L High 6-33 [facility] Specialist Comment on above: Result Comment: 07/14 Female reference range changed. Performed By: #### T SH reflex FT4, RF, CBCAD, LIPD, CMP #### [facility] [address] [place], [place] [id number] Anion gap [Moles/Vol] 21 mmol/L High 12-20 [facility] Comment on above: Result Comment: Effe ctive 08/19/2019 reference range changed. Performed By: #### T SH reflex FT4, RF, CBCAD, LIPD, CMP #### [facility] [address] [place], [place] [id number] AST [Catalytic activity/Vol] 97 U/L High 9-34 [facility] Specialist Comment on above: Performed By: #### T SH reflex FT4, RF, CBCAD, LIPD, CMP #### [facility] [address] [place], [place] [id number] Bilirubin [Mass/Vol] 0.87 mg/dL Normal 0.30-1.20 [facility] Comment on above: Performed By: #### T SH reflex FT4, RF, CBCAD, LIPD, CMP #### [facility] [address] [place], [place] [id number] BUN/CREA 17 Ratio Normal 6-22 [facility] Comment on above: Performed By: #### T SH reflex FT4, RF, CBCAD, LIPD, CMP #### [facility] [address] [place], [place] [id number] Calcium [Mass/Vol] 9.9 mg/dL Normal 8.6-10.2 [facility] Comment on above: Performed By: #### T SH reflex FT4, RF, CBCAD, LIPD, CMP #### [facility] [address] [place], [place] [id number] Chloride [Moles/Vol] 99 mmol/L Normal 98-107 [facility] Comment on above: Performed By: #### T SH reflex FT4, RF, CBCAD, LIPD, CMP #### [facility] [address] [place], [place] [id number] CO2 [Moles/Vol] 22 mmol/L Normal 20-31 [facility] Comment on above: Performed By: #### T SH reflex FT4, RF, CBCAD, LIPD, CMP #### [facility] [address] [place], [place] [id number] Creatinine [Mass/Vol] 1.2 mg/dL Normal 0.6-1.4 [facility] Comment on above: Performed By: #### T SH reflex FT4, RF, CBCAD, LIPD, CMP #### [facility] [address] [place], [place] [id number] eGFRAA 60 mL/min/1.73m2 Low >60 [facility] Comment on above: Performed By: #### T SH reflex FT4, RF, CBCAD, LIPD, CMP #### [facility] [address] [place], [place] [id number] eGFRNAA 50 mL/min/1.73m2 Low >60 [facility] Comment on above: Performed By: #### T SH reflex FT4, RF, CBCAD, LIPD, CMP #### [facility] [address] [place], [place] [id number] Globulin (S) [Mass/Vol] 2.9 g/dL Normal 1.9-3.7 [facility] Specialist Comment on above: Performed By: #### T SH reflex FT4, RF, CBCAD, LIPD, CMP #### [facility] [address] [place], [place] [id number] Glucose [Mass/Vol] 292 mg/dL High 65-99 [facility] Comment on above: Result Comment: For FASTING Glucose --- ADA reference ranges: Normal 65-99 mg/dl Prediabetes 100-125 Diabetes >/= 126 Performed By: #### T SH reflex FT4, RF, CBCAD, LIPD, CMP #### [facility] [address] [place], [place] [id number] Potassium [Moles/Vol] 4.6 mmol/L Normal 3.5-5.5 [facility] Comment on above: Result Comment: Spec imen is hemolyzed. Results may be affected. Performed By: #### T SH reflex FT4, RF, CBCAD, LIPD, CMP #### [facility] [address] [place], [place] [id number] Protein [Mass/Vol] 7.5 g/dL Normal 6.1-8.1 Jenny suarez [place] [facility] Att[facility] Comment on above: Performed By: #### T SH reflex FT4, RF, CBCAD, LIPD, CMP #### [facility] [address] [place], [place] [id number] Sodium [Moles/Vol] 137 mmol/L Normal 135-146 Jenny suarez [place] [facility] Att[facility] Comment on above: Performed By: #### T SH reflex FT4, RF, CBCAD, LIPD, CMP #### [facility] [address] [place], [place] [id number] Urea nitrogen [Mass/Vol] 20 mg/dL Normal 7-25 [facility] Club Attendant Comment on above: Performed By: #### T SH reflex FT4, RF, CBCAD, LIPD, CMP #### [facility] [address] [place], [place] [id number] Lipid Panelon 12-28-2021 Cholesterol [Mass/Vol] 263 mg/dL High 125-200 No [facility] Comment on above: Result Comment: Low risk < 200mg/dL Borderline risk 201-239 mg/dl High risk > or equal to 240 Performed By: #### T SH reflex FT4, RF, CBCAD, LIPD, CMP #### [facility] [address] [place], [place] [id number] Cholesterol in HDL [Mass/Vol] 48 mg/dL Normal >40 [facility] Attendant Comment on above: Result Comment: High Cardiovascular Risk HDL <40 mg/dL Low Cardiovascular Risk HDL > or equal to 60 mg/dl Performed By: #### T SH reflex FT4, RF, CBCAD, LIPD, CMP #### [facility] [address] [place], [place] [id number] Cholesterol in LDL [Mass/Vol] 175 mg/dL Normal [facility] Attendant Comment on above: Result Comment: LDL ATP III CLASSIFICATION LDL less than 100 mg/dl Optimal LDL 100-129 mg/dl Near or above optimal LDL 130-159 Borderline high LDL 160-189 High LDL greater than 189 mg/dl Very High Performed By: #### T SH reflex FT4, RF, CBCAD, LIPD, CMP #### [facility] [address] [place], [place] [id number] Cholesterol in VLDL [Mass/Vol] 40 mg/dL Normal [facility] Specialist Comment on above: Performed By: #### T SH reflex FT4, RF, CBCAD, LIPD, CMP #### [facility] [address] [place], [place] [id number] Cholesterol.total/Chol esterol in HDL [Mass ratio] 5 {ratio} Normal [facility] Specialist Comment on above: Performed By: #### T SH reflex FT4, RF, CBCAD, LIPD, CMP #### [facility] [address] [place], [place] [id number] Triglyceride [Mass/Vol] 201 mg/dL High 30-150 [facility] Specialist Comment on above: Result Comment: TRIG ATPIII CLASSIFICATIONS TRIG less than 150 mg/dl Normal TRIG 150-199 mg/dl Borderline High TRIG 200-500 mg/dl High TRIG greather than 500 mg/dl Very High Performed By: #### T SH reflex FT4, RF, CBCAD, LIPD, CMP #### [facility] [address] [place], [place] [id number] Rheumatoid Factoron 12-29-19 RF 12.7 IU/mL Normal <14.0 [facility] Specialist Comment on above: Performed By: #### T SH reflex FT4, RF, CBCAD, LIPD, CMP #### [facility] [address] [place], [place] [id number] TSH w/ Reflex to Free T4on 12-28-2021 TSH 3.920 uIU/mL Normal 0.400-4.500 [facility] Specialist Comment on above: Performed By: #### T SH reflex FT4, RF, CBCAD, LIPD, CMP #### [facility] [address] [place], [place] [id number] AMMONIAon 01-03-2020 Ammonia (P) [Mass/Vol] 10 umol/L Normal - [facility] Comment on above: Performed By: #### T SH, LIPA, TROP, CMP, BNP #### [facility] [address] [place], [place] [id number] Angelina Harvey BNPon 01-03-2020 Natriuretic peptide B (Bld) [Mass/Vol] 846.0 pg/mL Critically high <=450.0 [facility] Comment on above: Result Comment: TEST REPEATED; CRITICAL VALUE VERIFIED Performed By: #### T SH, LIPA, TROP, CMP, BNP #### [facility] [address] [place] [address] Angelina Harvey CBC AUTO DIFFon 01-03-2020 Basophils (Bld) [#/Vol] 0.0 103/ul Normal 0.0-0.1 [facility] Comment on above: Performed By: #### T SH, LIPA, TROP, CMP, BNP #### [facility] [address] [place] [address] Angelinavalerie Harvey Basophils/100 WBC (Bld) 0.5 % Normal 0.2-2.0 [facility] Comment on above: Performed By: #### T SH, LIPA, TROP, CMP, BNP #### [facility] [address] [place] [address] Angelina Candice Eosinophils (Bld) [#/Vol] 0.1 103/ul Normal 0.0-0.7 [facility] Comment on above: Performed By: #### T SH, LIPA, TROP, CMP, BNP #### [facility] [address] [place] [address] Angelina Candice Eosinophils/100 WBC (Bld) 1.0 % Normal 0.9-7.0 [facility] Comment on above: Performed By: #### T SH, LIPA, TROP, CMP, BNP #### [facility] [address] [place] [address] Angelina Candice Erythrocyte distribution width (RBC) [Ratio] 15.5 % Critically high 11.0-15.0 [facility] Comment on above: Performed By: #### T SH, LIPA, TROP, CMP, BNP #### [facility] [address] [place] [address] Angelina Candice Hematocrit (Bld) [Volume fraction] 34.0 % Critically low 36.0-48.0 [facility] Comment on above: Performed By: #### T SH, LIPA, TROP, CMP, BNP #### [facility] [address] [place] [address] Angelina Candice Hemoglobin (Bld) [Mass/Vol] 11.8 g/dL Critically low 12.0-16.0 [facility] Comment on above: Performed By: #### T SH, LIPA, TROP, CMP, BNP #### [facility] [address] [place] [address] Angelina Candice IG # 0.02 10e3/ul Normal 0.00-0.03 [facility] Comment on above: Performed By: #### T SH, LIPA, TROP, CMP, BNP #### [facility] [address] [place] [address] Angelina Candice IG % 0.3 % Normal 0.0-0.5 [facility] Comment on above: Performed By: #### T SH, LIPA, TROP, CMP, BNP #### [facility] [address] [place] [address] Angelina Candice Lymphocytes (Bld) [#/Vol] 1.2 103/ul Normal 1.2-3.8 [facility] Comment on above: Performed By: #### T SH, LIPA, TROP, CMP, BNP #### [facility] [address] [place] [address] Angelina Candice Lymphocytes/100 WBC (Bld) 18.9 % Critically low 20.5-60.0 [facility] Comment on above: Performed By: #### T SH, LIPA, TROP, CMP, BNP #### [facility] [address] [place] [address] Angelina Candice MANUAL DIFF REQ NO Normal [facility] Comment on above: Performed By: #### T SH, LIPA, TROP, CMP, BNP #### [facility] [address] [place] [address] Angelina Candice MCH (RBC) [Entitic mass] 37.5 pg Critically high 26.7-34.0 [facility] Comment on above: Performed By: #### T SH, LIPA, TROP, CMP, BNP #### [facility] [address] [place] [address] Angelinavalerie Zhaoen MCHC (RBC) [Mass/Vol] 34.7 g/dL Normal 29.9-35.2 [facility] Comment on above: Performed By: #### T SH, LIPA, TROP, CMP, BNP #### [facility] [address] [place] [address] Angelina Candice MCV (RBC) [Entitic vol] 107.9 fL Critically high 81.0-99.0 [facility] Comment on above: Performed By: #### T SH, LIPA, TROP, CMP, BNP #### [facility] [address] [place] [address] Angelina Candice Monocytes (Bld) [#/Vol] 0.2 103/ul Critically low 0.3-0.8 [facility] Comment on above: Performed By: #### T SH, LIPA, TROP, CMP, BNP #### [facility] [address] [place] [address] Angelina Candice Monocytes/100 WBC (Bld) 3.8 % Normal 1.7-12.0 [facility] Comment on above: Performed By: #### T SH, LIPA, TROP, CMP, BNP #### [facility] [address] [place] [address] Angelina Candice Neutrophils (Bld) [#/Vol] 4.7 103/ul Normal 1.4-6.5 [facility] Comment on above: Performed By: #### T SH, LIPA, TROP, CMP, BNP #### [facility] [address] [place] [address] Angelina Candice Neutrophils/100 WBC (Bld) 75.5 % Critically high 43.0-75.0 [facility] Comment on above: Performed By: #### T SH, LIPA, TROP, CMP, BNP #### [facility] [address] [place] [address] Angelina Candice Platelet mean volume (Bld) [Entitic vol] 10.3 fL Normal 9.5-13.5 [facility] Comment on above: Performed By: #### T SH, LIPA, TROP, CMP, BNP #### [facility] [address] [place], [place] [address] Angelina Harvey Platelets (Bld) [#/Vol] 166 103/ul Normal 150-450 [facility] Comment on above: Performed By: #### T SH, LIPA, TROP, CMP, BNP #### [facility] [address] [place], [place] [address] Angelina Harvey RBC (Bld) [#/Vol] 3.15 106/ul Critically low 4.20-5.40 [facility] Comment on above: Performed By: #### T SH, LIPA, TROP, CMP, BNP #### [facility] [address] [place], [place] [address] Angelina Harvey WBC (Bld) [#/Vol] 6.3 103/ul Normal 4.0-11.0 [facility] Comment on above: Performed By: #### T SH, LIPA, TROP, CMP, BNP #### [facility] [address] [place], [place] [address] ABD/PELV W CONon 01-03-20 CT ABD/PELV W CON EXAMINATION: CT ABD/PELV W CON HISTORY: ABDOMINAL DISTENSION (GASEOUS). COMPARISON: None. TECHNIQUE: Images of the abdomen and pelvis obtained with 100 mL of Omnipaque 300. Dose reduction techniques were achieved by using automated exposure control and/or adjustment of mA and/or kV according to patient size and/or use of iterative reconstruction technique. FINDINGS: Lung bases are clear. No pleural or pericardial fluid. Solid upper abdominal organs demonstrate no acute abnormalities. There is a 2 to 3 mm nonobstructing stone in the interpolar region of the left kidney on image 66. Gallstones are suspected as well. The liver is fatty infiltrated. No adrenal mass or lymphadenopathy. No evidence of obstructive uropathy. Aorta is normal caliber. There is no evidence of bowel obstruction. The wall of the proximal sigmoid colon is thickened in the setting of underlying severe diverticulosis. No pneumatosis or pneumoperitoneum. No pelvic adenopathy or ascites. The appendix is not definitively identified. Uterus is normal size for age. The bladder is completely decompressed. No suspicious lytic or sclerotic osseous lesions. IMPRESSION: 1. Mild uncomplicated sigmoid diverticulitis. 2. Small nonobstructing left renal calculus. 3. Fatty liver. Cholelithiasis suspected. Electronically authenticated by: MAITE MENA Date: 2020-01-03 19:48 Normal [facility] ER URINE PROFILEon 0 Bilirubin [Mass/Vol] Negative Normal NEGATIVE [facility] Comment on above: Performed By: #### T SH, LIPA, TROP, CMP, BNP #### [facility] [address] [place] [address] Angelina Candice BLOOD Negative Normal NEGATIVE [facility] Comment on above: Performed By: #### T SH, LIPA, TROP, CMP, BNP #### [facility] [address] [place] [address] Angelina Candice Clarity (U) CLEAR Normal [facility] Comment on above: Performed By: #### T SH, LIPA, TROP, CMP, BNP #### [facility] [address] [place] [address] Angelina Candice Color (U) ORANGE Normal YELLOW [facility] Comment on above: Performed By: #### T SH, LIPA, TROP, CMP, BNP #### [facility] [address] [place] [address] Angelina Candice ERUAHD A micrscopic examination will be performed if indicated. Normal [facility] Comment on above: Performed By: #### T SH, LIPA, TROP, CMP, BNP #### [facility] [address] [place] [address] Angelina Candice Glucose [Mass/Vol] Negative Normal NEGATIVE [facility] Comment on above: Performed By: #### T SH, LIPA, TROP, CMP, BNP #### [facility] [address] [place] [address] Angelina Candice Ketones Ql (U) Negative Normal NEGATIVE [facility] Comment on above: Performed By: #### T SH, LIPA, TROP, CMP, BNP #### [facility] [address] [place] [id number] Angelina Candice Nitrite Ql (U) Negative Normal NEGATIVE [facility] Comment on above: Performed By: #### T SH, LIPA, TROP, CMP, BNP #### [facility] [address] [place] [address] Angelina Candice pH (Bld) 6.5 Normal 5-9 [facility] Comment on above: Performed By: #### T SH, LIPA, TROP, CMP, BNP #### [facility] [address] [place] [address] Angelina Harvey Protein (U) [Mass/Vol] 30 mg/dL Normal [facility] Comment on above: Performed By: #### T SH, LIPA, TROP, CMP, BNP #### [facility] [address] [place] [address] Angelina Harvey SPEC GRAVITY 1.020 Normal 1.005-<=1.025 [facility] [place] [facility] Comment on above: Performed By: #### T SH, LIPA, TROP, CMP, BNP #### [facility] [address] [place] [address] Angelina Harvey UR MICRO IND INDICATED Normal [facility] Comment on above: Performed By: #### T SH, LIPA, TROP, CMP, BNP #### [facility] [address] [place] [address] Angelina Harvey Urobilinogen Qn (U) 1.0 EU/dl Normal [facility] Comment on above: Performed By: #### T SH, LIPA, TROP, CMP, BNP #### [facility] [address] [place] [address] Angelinavalerie Harvey WBC (Bld) [#/Vol] Negative Normal NEGATIVE [facility] Comment on above: Performed By: #### T SH, LIPA, TROP, CMP, BNP #### [facility] [address] [place] [address] Angelina Harvey LIPASEon 01-03-2020 Lipase [Catalytic activity/Vol] 174.0 U/L Normal 23.0-300.0 [facility] Comment on above: Performed By: #### T SH, LIPA, TROP, CMP, BNP #### [facility] [address] [place] [address] Angelinavalerie Zhaoen LIVER PROFILEon 01-03-2020 Albumin [Mass/Vol] 3.7 g/dL Normal 3.5-5.0 [facility] Comment on above: Performed By: #### T SH, LIPA, TROP, CMP, BNP #### [facility] [address] [place] [address] Angelina Candice Albumin/Globulin [Mass ratio] 0.8 {ratio} Normal [facility] Comment on above: Performed By: #### T SH, LIPA, TROP, CMP, BNP #### [facility] [address] [place] [address] Angelina Candice ALP [Catalytic activity/Vol] 369 U/L Critically high 38-126 [facility] Comment on above: Performed By: #### T SH, LIPA, TROP, CMP, BNP #### [facility] [address] [place] [address] Angelina Candice ALT [Catalytic activity/Vol] 103 U/L Critically high 9-52 [facility] Comment on above: Performed By: #### T SH, LIPA, TROP, CMP, BNP #### [facility] [address] [place] [address] Angelina Candice AST [Catalytic activity/Vol] 127 U/L Critically high 14-36 [facility] Comment on above: Performed By: #### T SH, LIPA, TROP, CMP, BNP #### [facility] [address] [place] [address] Angelina Candice BILI, CONJUGATED 0.8 mg/dL Critically high 0.0-0.3 [facility] Comment on above: Result Comment: TEST REPEATED; CRITICAL VALUE VERIFIED Performed By: #### T SH, LIPA, TROP, CMP, BNP #### [facility] [address] [place] [address] Angelina Candice Bilirubin Ql (U) 1.4 mg/dL Critically high 0.2-1.3 [facility] Comment on above: Performed By: #### T SH, LIPA, TROP, CMP, BNP #### [facility] [address] [place] [address] Angelina Candice Globulin (S) [Mass/Vol] 4.5 g/dL Normal [facility] Comment on above: Performed By: #### T SH, LIPA, TROP, CMP, BNP #### [facility] [address] [place] [address] Angelina Candice Protein [Mass/Vol] 8.2 g/dL Normal 6.1-8.2 [facility] Comment on above: Performed By: #### T SH, LIPA, TROP, CMP, BNP #### [facility] [address] [place] [address] Angelina Candice PROF CHEM 8 (BAS METB)on Anion gap [Moles/Vol] 11.6 mmol/L Normal [facility] Comment on above: Performed By: #### T SH, LIPA, TROP, CMP, BNP #### [facility] [address] [place] [address] Angelina Candice Calcium [Mass/Vol] 9.5 mg/dL Normal 8.4-10.2 [facility] Comment on above: Performed By: #### T SH, LIPA, TROP, CMP, BNP #### [facility] [address] [place] [address] Angelina Candice Chloride [Moles/Vol] 96 mmol/L Critically low 98-107 [facility] Comment on above: Performed By: #### T SH, LIPA, TROP, CMP, BNP #### [facility] [address] [place] [address] Angelina Candice CO2 [Moles/Vol] 33.2 mmol/L Critically high 22.0-30.0 [facility] Comment on above: Performed By: #### T SH, LIPA, TROP, CMP, BNP #### [facility] [address] [place] [address] Angelina Candice Creatinine [Mass/Vol] 1.21 mg/dL Critically high 0.52-1.04 [facility] Comment on above: Performed By: #### T SH, LIPA, TROP, CMP, BNP #### [facility] [address] [place] [address] Angelina Candice EGFR-AF [place] 59 mL/min/1.73m2 Critically low >=60 [facility] Comment on above: Performed By: #### T SH, LIPA, TROP, CMP, BNP #### [facility] [address] [place] [address] Angelina Candice EGFR-NON AF [place] 49 mL/min/1.73m2 Critically low >=60 [facility] Comment on above: Performed By: #### T SH, LIPA, TROP, CMP, BNP #### [facility] [address] [place] [address] Angelina Candice Glucose [Mass/Vol] 323 mg/dL Critically high 74-106 [facility] Comment on above: Performed By: #### T SH, LIPA, TROP, CMP, BNP #### [facility] [address] [place] [address] Angelina Candice Potassium [Moles/Vol] 2.8 mmol/L Critically low 3.4-5.0 [facility] Comment on above: Result Comment: TEST REPEATED; CRITICAL VALUE VERIFIED Performed By: #### T SH, LIPA, TROP, CMP, BNP #### [facility] [address] [place] [address] Angelina Candice Sodium [Moles/Vol] 138 mmol/L Normal 137-145 [facility] Comment on above: Performed By: #### T SH, LIPA, TROP, CMP, BNP #### [facility] [address] [place] [address] Angelina Candice Urea nitrogen [Mass/Vol] 16.0 mg/dL Normal 7.0-17.0 [facility] Comment on above: Performed By: #### T SH, LIPA, TROP, CMP, BNP #### [facility] [address] [place] [address] Angelina Candice Urea nitrogen/Creatinine [Mass ratio] 13.2 mg/mg Normal [facility] Comment on above: Performed By: #### T SH, LIPA, TROP, CMP, BNP #### [facility] [address] [place] [address] Angelina Candice PROTIMEon 01-03-2020 INR Coag (PPP) [Relative time] 1.21 {INR} Normal [facility] Comment on above: Performed By: #### T SH, LIPA, TROP, CMP, BNP #### [facility] [address] [place] [address] Angelina Candice PT Coag (PPP) [Time] PLEASE NOTE: NORMAL RANGE CHANGE 05-01-2014 DUE TO REAGENT LOT CHANGE Normal [facility] Comment on above: Performed By: #### T SH, LIPA, TROP, CMP, BNP #### [facility] [address] [place] [address] Angelina Candice PT Coag (PPP) [Time] 12.5 s Critically high 9.0-11.6 [facility] Comment on above: Performed By: #### T SH, LIPA, TROP, CMP, BNP #### [facility] [address] [place] [address] Angelina Candice PT Coag (PPP) [Time] SEE BELOW Normal [facility] Comment on above: Result Comment: TAPAN RED INR: 2.0 - 3.0 CONDITIONS NOT LISTED BELOW 2.5 - 3.5 FOR PROSTHETIC HEART VALVE REPLACEMENT 2.5 - 3.5 RECURRENT THROMBOSIS Performed By: #### T SH, LIPA, TROP, CMP, BNP #### [facility] [address] [place] [address] Angelina Candice PTTon 01-03-2020 aPTT Coag (Bld) [Time] 25.6 s Normal 22.3-36.2 Th e [facility] Comment on above: Performed By: #### T SH, LIPA, TROP, CMP, BNP #### [facility] [address] [place] [address] Angelina Candice aPTT Coag (Bld) [Time] PLEASE NOTE: NORM AL RANGE CHANGE 07-08-2015 DUE TO REAGENT LOT CHANGE Normal [facility] Comment on above: Performed By: #### T SH, LIPA, TROP, CMP, BNP #### [facility] [address] [address] Angelinavalerie Harvey TROPONIN - Ion 01-03-2020 Troponin I.cardiac [Mass/Vol] ng/mL Normal <=0.034 [facility] Comment on above: Performed By: #### T SH, LIPA, TROP, CMP, BNP #### [facility] [address] [address] Angelina Candice Troponin I.cardiac [Mass/Vol] SEE BELOW Normal [facility] Comment on above: Result Comment: <0.0 34 ng/ml NEGATIVE 0.034-0.119 INDETERMINATE 0.120 AMI CUT OFF Performed By: #### T SH, LIPA, TROP, CMP, BNP #### [facility] [address] [place] [address] Angelina Candice URINE MICROSCOPIC ONLYon Bacteria LM.HPF (Urine sed) [#/Area] TRACE Normal NONE SEEN The [facility] Comment on above: Performed By: #### T SH, LIPA, TROP, CMP, BNP #### [facility] [address] [place] [address] Angelina Candice CAST NONE SEEN Normal NONE SEEN [facility] Comment on above: Performed By: #### T SH, LIPA, TROP, CMP, BNP #### [facility] [address] [place] [address] Angelina Candice Crystals LM Nom (Urine sed) NONE SEEN Normal NONE SEEN [facility] Comment on above: Performed By: #### T SH, LIPA, TROP, CMP, BNP #### [facility] [address] [place] [address] Angelina Candice CULTURE NOT INDICATED Normal [facility] Comment on above: Performed By: #### T SH, LIPA, TROP, CMP, BNP #### [facility] [address] [place] [address] Angelina Candice Epithelial cells LM.HPF (Urine sed) [#/Area] FEW Normal [facility] Comment on above: Performed By: #### T SH, LIPA, TROP, CMP, BNP #### [facility] [address] [id number] Angelina Candice MUCOUS NONE SEEN Normal NONE SEEN [facility] Comment on above: Performed By: #### T SH, LIPA, TROP, CMP, BNP #### [facility] [address] [id number] Angelina Candice RBC (U) [#/Vol] 0-2 Normal 0-2 [facility] Comment on above: Performed By: #### T SH, LIPA, TROP, CMP, BNP #### [facility] [address] [place], [place] [id number] Angelina Candice WBC (Bld) [#/Vol] 0-2 Normal NONE SEEN The [facility] Comment on above: Performed By: #### T SH, LIPA, TROP, CMP, BNP #### [facility] [address] [place], [place] [address] Angelina Candice CBC AUTO DIFFon 05-11-2019 Basophils (Bld) [#/Vol] 0.0 103/ul Normal 0.0-0.1 [facility] Comment on above: Performed By: #### D DIM, PTT, PT #### [facility] [address] [place], [place] [address] Angelina Candice Basophils/100 WBC (Bld) 0.4 % Normal 0.2-2.0 [facility] Comment on above: Performed By: #### D DIM, PTT, PT #### [facility] [address] [place], [place] [address] Angelnia Candice Eosinophils (Bld) [#/Vol] 0.1 103/ul Normal 0.0-0.7 [facility] Comment on above: Performed By: #### D DIM, PTT, PT #### [facility] [address] [place], [place] [address] Angelina Candice Eosinophils/100 WBC (Bld) 1.5 % Normal 0.9-7.0 [facility] Comment on above: Performed By: #### D DIM, PTT, PT #### [facility] [address] [place], [place] [address] Angelina Candice Erythrocyte distribution width (RBC) [Ratio] 11.6 % Normal 11.0-15.0 [facility] Comment on above: Performed By: #### D DIM, PTT, PT #### [facility] [address] [place] [address] Angelina Candice Hematocrit (Bld) [Volume fraction] 33.8 % Critically low 36.0-48.0 [facility] Comment on above: Performed By: #### D DIM, PTT, PT #### [facility] [address] [place] [address] Angelina Candice Hemoglobin (Bld) [Mass/Vol] 11.2 g/dL Critically low 12.0-16.0 [facility] Comment on above: Performed By: #### D DIM, PTT, PT #### [facility] [address] [place] [address] Angelina Candice IG # 0.03 10e3/ul Normal 0.00-0.03 [facility] Comment on above: Performed By: #### D DIM, PTT, PT #### [facility] [address] [place] [address] Angelina Candice IG % 0.4 % Normal 0.0-0.5 [facility] Comment on above: Performed By: #### D DIM, PTT, PT #### [facility] [address] [place] [address] Angelina Candice Lymphocytes (Bld) [#/Vol] 1.3 103/ul Normal 1.2-3.8 [facility] Comment on above: Performed By: #### D DIM, PTT, PT #### [facility] [address] [place] [address] Angelina Candice Lymphocytes/100 WBC (Bld) 16.5 % Critically low 20.5-60.0 [facility] Comment on above: Performed By: #### D DIM, PTT, PT #### [facility] [address] [place] [address] Angelina Candice MANUAL DIFF REQ NO Normal [facility] Comment on above: Performed By: #### D DIM, PTT, PT #### [facility] [address] [place] [address] Angelina Candice MCH (RBC) [Entitic mass] 35.6 pg Critically high 26.7-34.0 [facility] Comment on above: Performed By: #### D DIM, PTT, PT #### [facility] [address] [place], [place] [address] Angelinavalerie Harvey MCHC (RBC) [Mass/Vol] 33.1 g/dL Normal 29.9-35.2 [facility] Comment on above: Performed By: #### D DIM, PTT, PT #### [facility] [address] [place] [address] Angelinavalerie Harvey MCV (RBC) [Entitic vol] 107.3 fL Critically high 81.0-99.0 [facility] Comment on above: Performed By: #### D DIM, PTT, PT #### [facility] [address] [place] [address] Angelina Candice Monocytes (Bld) [#/Vol] 0.3 103/ul Normal 0.3-0.8 [facility] Comment on above: Performed By: #### D DIM, PTT, PT #### [facility] [address] [place] [address] Angelina Candice Monocytes/100 WBC (Bld) 4.0 % Normal 1.7-12.0 [facility] Comment on above: Performed By: #### D DIM, PTT, PT #### [facility] [address] [place], [place] [address] Angelina Candice Neutrophils (Bld) [#/Vol] 6.2 103/ul Normal 1.4-6.5 [facility] Comment on above: Performed By: #### D DIM, PTT, PT #### [facility] [address] [place], [place] [address] Angelina Candice Neutrophils/100 WBC (Bld) 77.2 % Critically high 43.0-75.0 [facility] Comment on above: Performed By: #### D DIM, PTT, PT #### [facility] [address] [place], [place] [address] Angelinavalerie Zhaoen Platelet mean volume (Bld) [Entitic vol] 10.7 fL Normal 9.5-13.5 [facility] Comment on above: Performed By: #### D DIM, PTT, PT #### [facility] [address] [place], [place] [address] Angelina Candice Platelets (Bld) [#/Vol] 200 103/ul Normal 150-450 [facility] Comment on above: Performed By: #### D DIM, PTT, PT #### [facility] [address] [place], [place] [address] Angelina Candice RBC (Bld) [#/Vol] 3.15 106/ul Critically low 4.20-5.40 Th e [facility] Comment on above: Result Comment: slig ht macrocytosis slight stomatocytes Performed By: #### D DIM, PTT, PT #### [facility] [address] [place], [place] [address] Angelinavalerie Zhaoen WBC (Bld) [#/Vol] 8.1 103/ul Normal 4.0-11.0 [facility] Comment on above: Performed By: #### D DIM, PTT, PT #### [facility] [address] [place], [place] [address] ABD/PELVIS WO CONon 05-11 CT ABD/PELVIS WO CON Patient: KASSANDRA MCFARLANE Exam Date: 05/11/2019 : 1975 Gender:F Ordering : FREDDY SMALLS Admission #: [id number] Family : DR. EUGENIA BATISTA M.D. Order #: [id number] CLICK HERE TO VIEW EXAM RADIOLOGY REPORT PROCEDURE: CT ABDOMEN AND PELVIS WITHOUT CONTRAST COMPARISON: None. INDICATIONS: Acute right lower quadrant pain, nausea TECHNIQUE: Axial, Coronal, and Sagittal CT images of the abdomen and pelvis were created without IV contrast material. DOSE: 1196 mGycm FINDINGS: KIDNEY - RIGHT: Mild asymmetric enlargement and perinephric stranding. Nonobstructing nephrolithiasis URETER - RIGHT: Minimal hydroureter extending down to a 3 mm stone distal right ureter 1 cm before the ureterovesical junction axial image 126 KIDNEY - LEFT: Nonobstructing nephrolithiasis. No hydronephrosis. URETER - LEFT: No calcifications or abnormal dilation. URINARY BLADDER: No calculus, visible focal wall thickening, or lesion. LUNG BASES: No visible pulmonary or pleural disease. LIVER: No enlargement, atrophy, abnormal density, or significant focal lesion. BILIARY: No visible dilatation or calcification. PANCREAS: No lesion, fluid collection, ductal dilatation, or atrophy. SPLEEN: No enlargement or focal lesion. ADRENALS: No mass or enlargement. BOWEL/MESENTERY: No visible mass, obstruction, or bowel wall thickening. AORTA/VASCULAR: No aneurysm. RETROPERITONEUM: No mass or adenopathy. LYMPH NODES: Increased number of normal-sized nodes PELVIC ORGANS: 3.2 cm right adnexal cyst ABDOMINAL WALL: No mass or hernia. BONES: No bony lesion or fracture. OTHER: Negative. CONCLUSION: 1. 3 mm distal right ureterolith with mild associated obstructive uropathy Dictated by: Shantanu Mitchell M.D. on 05/11/2019 at 18:10 Approved by: Shantanu Mitchell M.D. on 05/11/2019 at 18:14 Normal [facility] ER URINE PROFILEon 9 Bilirubin [Mass/Vol] Negative Normal NEGATIVE [facility] Comment on above: Performed By: #### D DIM, PTT, PT #### [facility] [address] [place] [address] Angelina Candice BLOOD LARGE Normal NEGATIVE [facility] Comment on above: Performed By: #### D DIM, PTT, PT #### [facility] [address] [place] [address] Angelina Candice Clarity (U) CLEAR Normal [facility] Comment on above: Performed By: #### D DIM, PTT, PT #### [facility] [address] [place] [address] Angelina Candice Color (U) YELLOW Normal YELLOW [facility] Comment on above: Performed By: #### D DIM, PTT, PT #### [facility] [address] [place] [address] Angelina Candice ERUAHD A micrscopic examination will be performed if indicated. Normal [facility] Comment on above: Performed By: #### D DIM, PTT, PT #### [facility] [address] [place], [place] [address] Angelina Candice Glucose [Mass/Vol] Negative Normal NEGATIVE [facility] Comment on above: Performed By: #### D DIM, PTT, PT #### [facility] [address] [id number] Angelina Candice Ketones Ql (U) Negative Normal NEGATIVE [facility] Comment on above: Performed By: #### D DIM, PTT, PT #### [facility] [address] [id number] Angelina Candice Nitrite Ql (U) Negative Normal NEGATIVE [facility] Comment on above: Performed By: #### D DIM, PTT, PT #### [facility] [address] [id number] Angelina Candice pH (Bld) 5.0 Normal 5-9 [facility] Comment on above: Performed By: #### D DIM, PTT, PT #### [facility] [address] [place], [place] [address] Angelina Candice Protein (U) [Mass/Vol] 30 mg/dL Normal [facility] Comment on above: Performed By: #### D DIM, PTT, PT #### [facility] [address] [id number] Angelina Candice SPEC GRAVITY 1.025 Normal 1.005-<=1.025 [facility] [place] [facility] Comment on above: Performed By: #### D DIM, PTT, PT #### [facility] [address] [id number] Angelina Candice UR MICRO IND INDICATED Normal [facility] Comment on above: Performed By: #### D DIM, PTT, PT #### [facility] [address] [id number] Angelina Candice Urobilinogen Qn (U) 0.2 EU/dl Normal [facility] Comment on above: Performed By: #### D DIM, PTT, PT #### [facility] [address] [id number] Angelina Candice WBC (Bld) [#/Vol] Negative Normal NEGATIVE [facility] Comment on above: Performed By: #### D DIM, PTT, PT #### [facility] [address] [id number] Angelina Harvey LACTATE/LACTIC ACIDon 2018 Lactate [Moles/Vol] 1.4 mmol/L Normal 0.7-2.1 [facility] Comment on above: Performed By: #### D DIM, PTT, PT #### [facility] [address] [place] [address] Angelina Harvey LIPASEon 05-11-2019 Lipase [Catalytic activity/Vol] 135.0 U/L Normal 23.0-300.0 [facility] Comment on above: Performed By: #### D DIM, PTT, PT #### [facility] [address] [place], [place] [address] Angelina Harvey POINT OF CARE GLUCOSEon 04-15 Glucose [Mass/Vol] 97 mg/dL Normal 74-106 [facility] Comment on above: Performed By: #### D DIM, PTT, PT #### [facility] [address] [place] [address] Angelinavalerie Harvey Glucose [Mass/Vol] 149 mg/dL Critically high 74-106 [facility] Comment on above: Performed By: #### D DIM, PTT, PT #### [facility] [address] [place] [address] Angelina Harvey PROF 14(COMP METB)on 019 Albumin [Mass/Vol] 3.7 g/dL Normal 3.5-5.0 [facility] Comment on above: Performed By: #### D DIM, PTT, PT #### [facility] [address] [place] [address] Angelina Harvey Albumin/Globulin [Mass ratio] 0.8 {ratio} Normal [facility] Comment on above: Performed By: #### D DIM, PTT, PT #### [facility] [address] [place] [address] Angelina Candice ALP [Catalytic activity/Vol] 397 U/L Critically high 38-126 [facility] Comment on above: Performed By: #### D DIM, PTT, PT #### [facility] [address] [place], [place] [address] Angelina Candice ALT [Catalytic activity/Vol] 77 U/L Critically high 9-52 [facility] Comment on above: Performed By: #### D DIM, PTT, PT #### [facility] [address] [id number] Angelina Candice Anion gap [Moles/Vol] 14.5 mmol/L Normal Th e [facility] Comment on above: Performed By: #### D DIM, PTT, PT #### [facility] [address] [address] Angelina Candice AST [Catalytic activity/Vol] 94 U/L Critically high 14-36 [facility] Comment on above: Performed By: #### D DIM, PTT, PT #### [facility] [address] [place] [address] Angelina Candice Bilirubin Ql (U) 0.7 mg/dL Normal 0.2-1.3 [facility] Comment on above: Performed By: #### D DIM, PTT, PT #### [facility] [address] [place] [address] Angelina Candice Calcium [Mass/Vol] 9.3 mg/dL Normal 8.4-10.2 [facility] Comment on above: Performed By: #### D DIM, PTT, PT #### [facility] [address] [place] [address] Angelina Candice Chloride [Moles/Vol] 102 mmol/L Normal 98-107 [facility] Comment on above: Performed By: #### D DIM, PTT, PT #### [facility] [address] [address] Angelina Candice CO2 [Moles/Vol] 24.1 mmol/L Normal 22.0-30.0 [facility] Comment on above: Performed By: #### D DIM, PTT, PT #### [facility] [address] [address] Angelina Candice Creatinine [Mass/Vol] 1.36 mg/dL Critically high 0.52-1.04 [facility] Comment on above: Performed By: #### D DIM, PTT, PT #### [facility] [address] [place], [place] [address] Angelina Candice EGFR-AF [place] 52 mL/min/1.73m2 Critically low >=60 [facility] Comment on above: Performed By: #### D DIM, PTT, PT #### [facility] [address] [place], [place] [address] Angelina Candice EGFR-NON AF [place] 43 mL/min/1.73m2 Critically low >=60 [facility] Comment on above: Performed By: #### D DIM, PTT, PT #### [facility] [address] [place], [place] [address] Angelina Candice Globulin (S) [Mass/Vol] 4.8 g/dL Normal [facility] Comment on above: Performed By: #### D DIM, PTT, PT #### [facility] [address] [id number] Angelina Candice Glucose [Mass/Vol] 153 mg/dL Critically high 74-106 [facility] Comment on above: Performed By: #### D DIM, PTT, PT #### [facility] [address] [phone] Angelina Candice Potassium [Moles/Vol] 4.6 mmol/L Normal 3.4-5.0 [facility] Comment on above: Performed By: #### D DIM, PTT, PT #### [facility] [address] [place], [place] [address] Angelina Candice Protein [Mass/Vol] 8.5 g/dL Critically high 6.1-8.2 [facility] Comment on above: Performed By: #### D DIM, PTT, PT #### [facility] [address] [address] Angelina Candice Sodium [Moles/Vol] 136 mmol/L Critically low 137-145 [facility] Comment on above: Performed By: #### D DIM, PTT, PT #### [facility] [address] [place], [place] [address] Angelina Candice Urea nitrogen [Mass/Vol] 20.0 mg/dL Critically high 7.0-17.0 [facility] Comment on above: Performed By: #### D DIM, PTT, PT #### [facility] [address] [place], [place] [address] Angelina Candice Urea nitrogen/Creatinine [Mass ratio] 14.7 mg/mg Normal [facility] Comment on above: Performed By: #### D DIM, PTT, PT #### [facility] [address] [id number] Angelina Candice URINE MICROSCOPIC ONLYon Bacteria LM.HPF (Urine sed) [#/Area] NONE SEEN Normal NONE SEEN [facility] Comment on above: Performed By: #### D DIM, PTT, PT #### [facility] [address] [place] [address] Angelina Candice CAST NONE SEEN Normal NONE SEEN [facility] Comment on above: Performed By: #### D DIM, PTT, PT #### [facility] [address] [place], [place] [address] Angelina Candice Crystals LM Nom (Urine sed) NONE SEEN Normal NONE SEEN [facility] Comment on above: Performed By: #### D DIM, PTT, PT #### [facility] [address] [place], [place] [address] Angelina Candice CULTURE NOT INDICATED Normal [facility] Comment on above: Performed By: #### D DIM, PTT, PT #### [facility] [address] [place], [place] [address] Angelina Candice Epithelial cells LM.HPF (Urine sed) [#/Area] FEW Normal [facility] Comment on above: Performed By: #### D DIM, PTT, PT #### [facility] [address] [place], [place] [address] Angelina Candice MUCOUS NONE SEEN Normal NONE SEEN [facility] Comment on above: Performed By: #### D DIM, PTT, PT #### [facility] [address] [id number] Angelina Candice RBC (U) [#/Vol] /uL Normal 0-2 [facility] Comment on above: Performed By: #### D DIM, PTT, PT #### [facility] [address] [place], [place] [address] Angelina Candice WBC (Bld) [#/Vol] NONE SEEN Normal NONE SEEN [facility] Comment on above: Performed By: #### D DIM, PTT, PT #### [facility] [address] [place], [place] [address] Angelinavalerie Harvey BNPon 01-26-2019 Natriuretic peptide B (Bld) [Mass/Vol] 399.0 pg/mL Normal <=450.0 [facility] Comment on above: Performed By: #### D DIM, PTT, PT #### [facility] [address] [place] [address] Angelina Candice CBC AUTO DIFFon 01-26-2019 Basophils (Bld) [#/Vol] 0.0 103/ul Normal 0.0-0.1 [facility] Comment on above: Performed By: #### D DIM, PTT, PT #### [facility] [address] [place] [address] Angelina Candice Basophils/100 WBC (Bld) 0.3 % Normal 0.2-2.0 [facility] Comment on above: Performed By: #### D DIM, PTT, PT #### [facility] [address] [place] [address] Angelina Candice Eosinophils (Bld) [#/Vol] 0.1 103/ul Normal 0.0-0.7 [facility] Comment on above: Performed By: #### D DIM, PTT, PT #### [facility] [address] [place] [address] Angelina Candice Eosinophils/100 WBC (Bld) 1.3 % Normal 0.9-7.0 [facility] Comment on above: Performed By: #### D DIM, PTT, PT #### [facility] [address] [place], [place] [address] Angelina Candice Erythrocyte distribution width (RBC) [Ratio] 13.2 % Normal 11.0-15.0 [facility] Comment on above: Performed By: #### D DIM, PTT, PT #### [facility] [address] [place] [address] Angelina Candice Hematocrit (Bld) [Volume fraction] 32.7 % Critically low 36.0-48.0 [facility] Comment on above: Performed By: #### D DIM, PTT, PT #### [facility] [address] [place] [address] Angelinavalerie Harvey Hemoglobin (Bld) [Mass/Vol] 11.2 g/dL Critically low 12.0-16.0 [facility] Comment on above: Performed By: #### D DIM, PTT, PT #### [facility] [address] [place] [address] Angelina Candice IG # 0.03 10e3/ul Normal 0.00-0.03 [facility] Comment on above: Performed By: #### D DIM, PTT, PT #### [facility] [address] [place] [address] Angelina Candice IG % 0.5 % Normal 0.0-0.5 [facility] Comment on above: Performed By: #### D DIM, PTT, PT #### [facility] [address] [place] [address] Angelina Harvey Lymphocytes (Bld) [#/Vol] 1.7 103/ul Normal 1.2-3.8 [facility] Comment on above: Performed By: #### D DIM, PTT, PT #### [facility] [address] [place] [address] Angelina Harvey Lymphocytes/100 WBC (Bld) 26.3 % Normal 20.5-60.0 [facility] Comment on above: Performed By: #### D DIM, PTT, PT #### [facility] [address] [place] [address] Angelina Harvey MANUAL DIFF REQ NO Normal [facility] Comment on above: Performed By: #### D DIM, PTT, PT #### [facility] [address] [place] [address] Angelina Harvey MCH (RBC) [Entitic mass] 35.8 pg Critically high 26.7-34.0 [facility] Comment on above: Performed By: #### D DIM, PTT, PT #### [facility] [address] [place], [place] [id number] Angelinavalerie Harvey MCHC (RBC) [Mass/Vol] 34.3 g/dL Normal 29.9-35.2 [facility] Comment on above: Performed By: #### D DIM, PTT, PT #### [facility] [address] [place], [place] [id number] Angelinavalerie Harvey MCV (RBC) [Entitic vol] 104.5 fL Critically high 81.0-99.0 [facility] Comment on above: Performed By: #### D DIM, PTT, PT #### [facility] [address] [place], [place] [id number] Angelina Candice Monocytes (Bld) [#/Vol] 0.3 103/ul Normal 0.3-0.8 [facility] Comment on above: Performed By: #### D DIM, PTT, PT #### [facility] [address] [place], [place] [address] Angelina Candice Monocytes/100 WBC (Bld) 4.9 % Normal 1.7-12.0 [facility] Comment on above: Performed By: #### D DIM, PTT, PT #### [facility] [address] [place], [place] [id number] Angelina Candice Neutrophils (Bld) [#/Vol] 4.2 103/ul Normal 1.4-6.5 [facility] Comment on above: Performed By: #### D DIM, PTT, PT #### [facility] [address] [place], [place] [address] Angelina Candice Neutrophils/100 WBC (Bld) 66.7 % Normal 43.0-75.0 [facility] Comment on above: Performed By: #### D DIM, PTT, PT #### [facility] [address] [place], [place] [id number] Angelina Candice Platelet mean volume (Bld) [Entitic vol] 11.2 fL Normal 9.5-13.5 [facility] Comment on above: Performed By: #### D DIM, PTT, PT #### [facility] [address] [place], [place] [id number] Angelina Candice Platelets (Bld) [#/Vol] 147 103/ul Critically low 150-450 [facility] Comment on above: Performed By: #### D DIM, PTT, PT #### [facility] [address] [address] Angelina Harvey RBC (Bld) [#/Vol] 3.13 106/ul Critically low 4.20-5.40 [facility] Comment on above: Performed By: #### D DIM, PTT, PT #### [facility] [address] [address] Angelina Harvey WBC (Bld) [#/Vol] 6.3 103/ul Normal 4.0-11.0 [facility] Comment on above: Performed By: #### D DIM, PTT, PT #### [facility] [address] [place] [address] Angelina Harvey HEPATITIS PANEL, ACUTEon HBsAg Screen Negative Normal Negative [facility] Comment on above: Performed By: #### D DIM, PTT, PT #### [facility] [address] [place] [address] Angelina Harvey Hep A Ab, IgM Negative Normal Negative [facility] Comment on above: Performed By: #### D DIM, PTT, PT #### [facility] [address] [place] [address] Angelina Harvey Hep B Core Ab, IgM Negative Normal Negative [facility] Comment on above: Performed By: #### D DIM, PTT, PT #### [facility] [address] [address] Angelina Harvey Hep C Virus Ab <0.1 Normal 0.0-0.9 [facility] Comment on above: Result Comment: Nega tive: < 0.8 Indeterminate: 0.8 - 0.9 Positive: > 0.9 . The CDC recommends that a positive HCV antibody result be followed up with a HCV Nucleic Acid Amplification test (804148). Performed By: #### D DIM, PTT, PT #### [facility] [address] [place] [address] Angelinavalerie Harvey POINT OF CARE GLUCOSEon 06- Glucose [Mass/Vol] 130 mg/dL Critically high 74-106 [facility] Comment on above: Performed By: #### D DIM, PTT, PT #### [facility] [address] [place], [place] [address] Angelina Harvey PROF 14(COMP METB)on 01-26- 019 Albumin [Mass/Vol] 3.1 g/dL Critically low 3.5-5.0 [facility] Comment on above: Performed By: #### D DIM, PTT, PT #### [facility] [address] [place], [place] [address] Angelina Candice Albumin/Globulin [Mass ratio] 0.7 {ratio} Normal [facility] Comment on above: Performed By: #### D DIM, PTT, PT #### [facility] [address] [id number] Angelina Candice ALP [Catalytic activity/Vol] 303 U/L Critically high 38-126 [facility] Comment on above: Performed By: #### D DIM, PTT, PT #### [facility] [address] [place], [place] [address] Angelina Candice ALT [Catalytic activity/Vol] 54 U/L Critically high 9-52 [facility] Comment on above: Performed By: #### D DIM, PTT, PT #### [facility] [address] [place], [place] [address] Angelina Candice Anion gap [Moles/Vol] 11.9 mmol/L Normal [facility] Comment on above: Performed By: #### D DIM, PTT, PT #### [facility] [address] [id number] Angelina Candice AST [Catalytic activity/Vol] 103 U/L Critically high 14-36 [facility] Comment on above: Performed By: #### D DIM, PTT, PT #### [facility] [address] [place], [place] [address] Angelina Candice Bilirubin Ql (U) 1.7 mg/dL Critically high 0.2-1.3 [facility] Comment on above: Performed By: #### D DIM, PTT, PT #### [facility] [address] [id number] Angelina Candice Calcium [Mass/Vol] 8.3 mg/dL Critically low 8.4-10.2 [facility] Comment on above: Performed By: #### D DIM, PTT, PT #### [facility] [address] [address] Angelina Candice Chloride [Moles/Vol] 96 mmol/L Critically low 98-107 [facility] Comment on above: Performed By: #### D DIM, PTT, PT #### [facility] [address] [address] Angelina Candice CO2 [Moles/Vol] 35.3 mmol/L Critically high 22.0-30.0 [facility] Comment on above: Performed By: #### D DIM, PTT, PT #### [facility] [address] [place] [address] Angelina Candice Creatinine [Mass/Vol] 1.09 mg/dL Critically high 0.52-1.04 [facility] Comment on above: Performed By: #### D DIM, PTT, PT #### [facility] [address] [place], [place] [address] Angelina Candice EGFR-AF [place] >60 Normal >=60 [facility] Comment on above: Performed By: #### D DIM, PTT, PT #### [facility] [address] [place] [address] Angelina Candice EGFR-NON AF [place] 55 mL/min/1.73m2 Critically low >=60 [facility] Comment on above: Performed By: #### D DIM, PTT, PT #### [facility] [address] [place], [place] [address] Angelina Candice Globulin (S) [Mass/Vol] 4.2 g/dL Normal [facility] Comment on above: Performed By: #### D DIM, PTT, PT #### [facility] [address] [place] [address] Angelina Candice Glucose [Mass/Vol] 132 mg/dL Critically high 74-106 [facility] Comment on above: Performed By: #### D DIM, PTT, PT #### [facility] [address] [place] [address] Angelina Candice Potassium [Moles/Vol] 3.2 mmol/L Critically low 3.4-5.0 [facility] Comment on above: Performed By: #### D DIM, PTT, PT #### [facility] [address] [place] [address] Angelina Candice Protein [Mass/Vol] 7.3 g/dL Normal 6.1-8.2 [facility] Comment on above: Performed By: #### D DIM, PTT, PT #### [facility] [address] [place] [address] Angelinavalerie Harvey Sodium [Moles/Vol] 140 mmol/L Normal 137-145 [facility] Comment on above: Performed By: #### D DIM, PTT, PT #### [facility] [address] [place] [address] Angelina Harvey Urea nitrogen [Mass/Vol] 13.0 mg/dL Normal 7.0-17.0 [facility] Comment on above: Performed By: #### D DIM, PTT, PT #### [facility] [address] [place] [address] Angelina Harvey Urea nitrogen/Creatinine [Mass ratio] 11.9 mg/mg Normal [facility] Comment on above: Performed By: #### D DIM, PTT, PT #### [facility] [address] [place] [address] Angelina Harvey BNPon 01-25-2019 Natriuretic peptide B (Bld) [Mass/Vol] 883.0 pg/mL Critically high <=450.0 [facility] Comment on above: Result Comment: Test repeated. Critical value verified. Performed By: #### D DIM, PTT, PT #### [facility] [address] [place] [address] Angelina Harvey CARDIAC CHING 3-6on 9 CK [Catalytic activity/Vol] 144 U/L Critically high 30-135 [facility] Comment on above: Performed By: #### D DIM, PTT, PT #### [facility] [address] [place] [address] Angelina Candice CK.MB [Mass/Vol] 3.52 ng/mL Critically high <=2.37 [facility] Comment on above: Result Comment: test repeated critical value verified Performed By: #### D DIM, PTT, PT #### [facility] [address] [place] [address] Angelina Candice INR Coag (Bld) [Relative time] SEE BELOW Normal [facility] Comment on above: Result Comment: <0.0 34 ng/ml NEGATIVE 0.034-0.119 INDETERMINATE 0.120 AMI CUT OFF Performed By: #### D DIM, PTT, PT #### [facility] [address] [place] [address] Angelina Candice TROP <0.017 Normal <=0.034 [facility] Comment on above: Performed By: #### D DIM, PTT, PT #### [facility] [address] [place] [address] Angelina Candice CK [Catalytic activity/Vol] 160 U/L Critically high 30-135 [facility] Comment on above: Performed By: #### D DIM, PTT, PT #### [facility] [address] [place] [address] Angelina Candice CK.MB [Mass/Vol] 3.98 ng/mL Critically high <=2.37 [facility] Comment on above: Result Comment: test repeated critical value verified Performed By: #### D DIM, PTT, PT #### [facility] [address] [place] [address] Angelina Candice INR Coag (Bld) [Relative time] SEE BELOW Normal [facility] Comment on above: Result Comment: <0.0 34 ng/ml NEGATIVE 0.034-0.119 INDETERMINATE 0.120 AMI CUT OFF Performed By: #### D DIM, PTT, PT #### [facility] [address] [place] [address] Angelina Candice TROP <0.017 Normal <=0.034 [facility] Comment on above: Performed By: #### D DIM, PTT, PT #### [facility] [address] [place] [address] Angelina Candice CBC AUTO DIFFon 01-25-2019 Basophils (Bld) [#/Vol] 0.0 103/ul Normal 0.0-0.1 [facility] Comment on above: Performed By: #### D DIM, PTT, PT #### [facility] [address] [place] [address] Angelina Candice Basophils/100 WBC (Bld) 0.6 % Normal 0.2-2.0 [facility] Comment on above: Performed By: #### D DIM, PTT, PT #### [facility] [address] [place] [address] Angelina Candice Eosinophils (Bld) [#/Vol] 0.1 103/ul Normal 0.0-0.7 [facility] Comment on above: Performed By: #### D DIM, PTT, PT #### [facility] [address] [place] [address] Angelina Candice Eosinophils/100 WBC (Bld) 1.8 % Normal 0.9-7.0 [facility] Comment on above: Performed By: #### D DIM, PTT, PT #### [facility] [address] [place] [address] Angelinavalerie Harvey Erythrocyte distribution width (RBC) [Ratio] 13.2 % Normal 11.0-15.0 [facility] Comment on above: Performed By: #### D DIM, PTT, PT #### [facility] [address] [place] [address] Angelina Candice Hematocrit (Bld) [Volume fraction] 30.9 % Critically low 36.0-48.0 [facility] Comment on above: Performed By: #### D DIM, PTT, PT #### [facility] [address] [place] [address] Angelina Candice Hemoglobin (Bld) [Mass/Vol] 10.7 g/dL Critically low 12.0-16.0 [facility] Comment on above: Performed By: #### D DIM, PTT, PT #### [facility] [address] [place] [address] Angelinavalerie Harvey IG # 0.01 10e3/ul Normal 0.00-0.03 [facility] Comment on above: Performed By: #### D DIM, PTT, PT #### [facility] [address] [place] [address] Angelinavalerie Harvey IG % 0.2 % Normal 0.0-0.5 [facility] Comment on above: Performed By: #### D DIM, PTT, PT #### [facility] [address] [place] [address] Angelinavalerie Harvey Lymphocytes (Bld) [#/Vol] 1.3 103/ul Normal 1.2-3.8 [facility] Comment on above: Performed By: #### D DIM, PTT, PT #### [facility] [address] [place] [address] Angelina Harvey Lymphocytes/100 WBC (Bld) 25.3 % Normal 20.5-60.0 [facility] Comment on above: Performed By: #### D DIM, PTT, PT #### [facility] [address] [place] [address] Angelina Harvey MANUAL DIFF REQ NO Normal [facility] Comment on above: Performed By: #### D DIM, PTT, PT #### [facility] [address] [place] [address] Angelinavalerie Harvey MCH (RBC) [Entitic mass] 36.0 pg Critically high 26.7-34.0 [facility] Comment on above: Performed By: #### D DIM, PTT, PT #### [facility] [address] [place] [address] Angelinavalerie Harvey MCHC (RBC) [Mass/Vol] 34.6 g/dL Normal 29.9-35.2 [facility] Comment on above: Performed By: #### D DIM, PTT, PT #### [facility] [address] [place] [address] Angelina Candice MCV (RBC) [Entitic vol] 104.0 fL Critically high 81.0-99.0 [facility] Comment on above: Performed By: #### D DIM, PTT, PT #### [facility] [address] [place], [place] [address] Angelina Candice Monocytes (Bld) [#/Vol] 0.4 103/ul Normal 0.3-0.8 [facility] Comment on above: Performed By: #### D DIM, PTT, PT #### [facility] [address] [place] [address] Angelina Candice Monocytes/100 WBC (Bld) 6.9 % Normal 1.7-12.0 [facility] Comment on above: Performed By: #### D DIM, PTT, PT #### [facility] [address] [place] [address] Angelina Candice Neutrophils (Bld) [#/Vol] 3.3 103/ul Normal 1.4-6.5 [facility] Comment on above: Performed By: #### D DIM, PTT, PT #### [facility] [address] [place] [address] Angelina Candice Neutrophils/100 WBC (Bld) 65.2 % Normal 43.0-75.0 [facility] Comment on above: Performed By: #### D DIM, PTT, PT #### [facility] [address] [place] [address] Angelina Candice Platelet mean volume (Bld) [Entitic vol] 11.0 fL Normal 9.5-13.5 [facility] Comment on above: Performed By: #### D DIM, PTT, PT #### [facility] [address] [place], [place] [address] Angelina Candice Platelets (Bld) [#/Vol] 149 103/ul Critically low 150-450 [facility] Comment on above: Performed By: #### D DIM, PTT, PT #### [facility] [address] [place], [place] [address] Angelina Candice RBC (Bld) [#/Vol] 2.97 106/ul Critically low 4.20-5.40 [facility] Comment on above: Performed By: #### D DIM, PTT, PT #### [facility] [address] [place] [address] Angelina Candice WBC (Bld) [#/Vol] 5.1 103/ul Normal 4.0-11.0 [facility] Comment on above: Performed By: #### D DIM, PTT, PT #### [facility] [address] [id number] Angelina Harvey ECHOCARDIO M/2D COMPLETEon 0 01-25-2019 ECHOCARDIO M/2D COMPLETE Patient: CIELO MCFARLANE Exam Date: 01/25/2019 : 1975 Gender:F 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 Admission #: [id number] Family : Order #: [id number] CLICK HERE TO VIEW EXAM ECHOCARDIOGRAM REPORT PROCEDURE: CARDIO PULMONARY ECHOCARDIO M/2D COMP INDICATIONS: Chest pain, Hypokalemia, elev BNP COMPARISON: None. DESCRIPTION: COMPLETE ECHOCARDIOGRAM Real-time transthoracic echocardiography with 2D, M-mode, spectral and color flow Doppler performed. QUALITY: Technical quality was adequate. LEFT VENTRICLE: Normal chamber size. Moderate concentric left ventricular hypertrophy. Normal left ventricular contractility. No left ventricular outflow obstruction. LV EF: Normal left ventricular ejection fraction, (>55%). DIASTOLIC: ATRIAL SEPTUM: Intact atrial septum. LEFT ATRIUM: Normal size RIGHT ATRIUM: Normal chamber size. RIGHT VENTRICLE: Normal chamber size. No right ventricular outflow obstruction. TRICUSPID VALVE: Normal mobility and thickness. No stenosis with trace regurgitation. No evidence of pulmonary hypertension. MITRAL VALVE: Normal mobility and thickness. No mitral valve prolapse. No evidence of mitral valve stenosis. There is no mitral annular calcification. Trace mitral regurgitation. AORTIC VALVE: Normal trileaflet appearance. No visible sclerosis. Normal leaflet mobility. No evidence of aortic valve stenosis. No aortic regurgitation. AORTIC ROOT: Normal diameter and appearance. PULMONIC VALVE: Normal thickness and mobility. No stenosis. PERICARDIUM: Trace pericardial effusion. IVC: Collapes with inspirations. PLEURA: No evidence of pleural effusion. CONCLUSION: Trace pericardial effusion, otherwise normal echocardiogram Adult Echocardiography Procedure Report Left Ventricle LVEDD (3.7 - 5.6 cm): 4.67 cm LVESD (2.2 - 4.0 cm): 2.75 cm LVIVS thickness (0.6 - 1.2 cm): 1.27 cm LVPW thickness (0.5 - 1.0 cm): 1.31 cm e': 7.13 cm/s E - e': 13.10 LVOT Area (cm2): 3.14 cm2 LVOT Diameter 2.00 cm Left Ventricular Ejection Fraction: 72 % Left Ventricular Ejection Fraction (A4C): 78 % Left Atrium LA Volume Index (2D A2C): 32 ml/m2 Left Atrium Systolic Dimension: 4.50 cm Left Atrium Systolic Area(A2C): 20.70 cm2 Left Atrium Systolic Area(A4C): 18.50 cm2 Left Atrium Systolic Volume(A2C): 34321 mm3 Left Atrium Systolic Volume(A4C): 55063 mm3 Mitral Valve MV E to A Ratio: 1.20 Mitral Valve A-Wave Peak Velocity: 80.00 cm/s Mitral Valve E-Wave Peak Velocity: 93.30 cm/s Right Ventricle RV Internal Diastolic Dimension: 3.16 cm RV Peak Systolic Pressure: 12 mm[Hg] Aorta AO Root Diam: 2.70 cm Aortic Valve AoV Area (Peak Marcos): 2.27 cm2 AoV Area (VTI): 2.52 cm2 Aortic Valve Cusp Separation: 1.90 cm Peak Velocity(Antegrade Flow): 214.00 cm/s Peak Gradient(Antegrade Flow): 18 mm[Hg] Mean Velocity(Antegrade Flow): 144.00 cm/s Mean Gradient(Antegrade Flow): 10 mm[Hg] Velocity Time Integral: 41.60 cm Tricuspid Valve Pulmonic Valve Peak Velocity: 126.00 cm/s Peak Gradient: 6 mm[Hg] Right Atrium Right Atrium Systolic Pressure: 5 mm[Hg] Dictated by: Bj Wilburn M.D. on 01/25/2019 at 16:34 Approved by: Bj Wilburn M.D. on 01/25/2019 at 16:39 Normal [facility] POINT OF CARE GLUCOSEon 01-12 Glucose [Mass/Vol] 191 mg/dL Critically high 74-106 [facility] Comment on above: Performed By: #### D DIM, PTT, PT #### [facility] [address] [place], [place] [address] Angelina Harvey Glucose [Mass/Vol] 201 mg/dL Critically high 74-106 [facility] Comment on above: Performed By: #### D DIM, PTT, PT #### [facility] [address] [place], [place] [address] Angelina Candice Glucose [Mass/Vol] 165 mg/dL Critically high 74-106 [facility] Comment on above: Performed By: #### D DIM, PTT, PT #### [facility] [address] [place], [place] [address] Angeilna Candice Glucose [Mass/Vol] 280 mg/dL Critically high 74-106 [facility] Comment on above: Performed By: #### D DIM, PTT, PT #### [facility] [address] [id number] Angelina Candice PROF 14(COMP METB)on 019 Albumin [Mass/Vol] 3.1 g/dL Critically low 3.5-5.0 [facility] Comment on above: Performed By: #### D DIM, PTT, PT #### [facility] [address] [place], [place] [id number] Angelina Candice Albumin/Globulin [Mass ratio] 0.8 {ratio} Normal [facility] Comment on above: Performed By: #### D DIM, PTT, PT #### [facility] [address] [id number] Angelina Candice ALP [Catalytic activity/Vol] 295 U/L Critically high 38-126 [facility] Comment on above: Performed By: #### D DIM, PTT, PT #### [facility] [address] [place], [place] [id number] Angelina Candice ALT [Catalytic activity/Vol] 57 U/L Critically high 9-52 [facility] Comment on above: Performed By: #### D DIM, PTT, PT #### [facility] [address] [place], [place] [address] Angelina Candice Anion gap [Moles/Vol] 10.9 mmol/L Normal [facility] Comment on above: Performed By: #### D DIM, PTT, PT #### [facility] [address] [place] [address] Angelina Candice AST [Catalytic activity/Vol] 112 U/L Critically high 14-36 [facility] Comment on above: Performed By: #### D DIM, PTT, PT #### [facility] [address] [address] Angelina Candice Bilirubin Ql (U) 1.4 mg/dL Critically high 0.2-1.3 [facility] Comment on above: Performed By: #### D DIM, PTT, PT #### [facility] [address] [place] [address] Angelina Candice Calcium [Mass/Vol] 8.2 mg/dL Critically low 8.4-10.2 Th [facility] Comment on above: Performed By: #### D DIM, PTT, PT #### [facility] [address] [place] [address] Angelina Candice Chloride [Moles/Vol] 99 mmol/L Normal 98-107 [facility] [facility] Comment on above: Performed By: #### D DIM, PTT, PT #### [facility] [address] [place] [address] Angelina Candice CO2 [Moles/Vol] 33.6 mmol/L Critically high 22.0-30.0 [facility] Comment on above: Performed By: #### D DIM, PTT, PT #### [facility] [address] [place] [address] Angelina Candice Creatinine [Mass/Vol] 0.83 mg/dL Normal 0.52-1.04 [facility] Comment on above: Performed By: #### D DIM, PTT, PT #### [facility] [address] [place] [address] Angelina Candice EGFR-AF [place]AST [place] >60 Normal >=60 [facility] Comment on above: Performed By: #### D DIM, PTT, PT #### [facility] [address] [place] [address] Angelina Candice EGFR-NON AF [place] >60 Normal >=60 [facility] Comment on above: Performed By: #### D DIM, PTT, PT #### [facility] [address] [place] [address] Angelina Candice Globulin (S) [Mass/Vol] 4.0 g/dL Normal [facility] Comment on above: Performed By: #### D DIM, PTT, PT #### [facility] [address] [address] Angelina Candice Glucose [Mass/Vol] 107 mg/dL Critically high 74-106 [facility] Comment on above: Performed By: #### D DIM, PTT, PT #### [facility] [address] [place] [address] Angelina Candice Potassium [Moles/Vol] 3.5 mmol/L Normal 3.4-5.0 [facility] Comment on above: Performed By: #### D DIM, PTT, PT #### [facility] [address] [place] [address] Angelina Candice Protein [Mass/Vol] 7.1 g/dL Normal 6.1-8.2 [facility] Comment on above: Performed By: #### D DIM, PTT, PT #### [facility] [address] [place] [address] Angelina Candice Sodium [Moles/Vol] 140 mmol/L Normal 137-145 [facility] Comment on above: Performed By: #### D DIM, PTT, PT #### [facility] [address] [place] [address] Angelina Candice Urea nitrogen [Mass/Vol] 8.0 mg/dL Normal 7.0-17.0 [facility] Comment on above: Performed By: #### D DIM, PTT, PT #### [facility] [address] [place] [address] Angelina Candice Urea nitrogen/Creatinine [Mass ratio] 9.6 mg/mg Normal [facility] Comment on above: Performed By: #### D DIM, PTT, PT #### [facility] [address] [place] [address] Angelina Candice VIT B12 AND FOLATEon 019 Cobalamin (Vitamin B12) [Mass/Vol] 516.0 pg/mL Normal 239.0-931.0 [facility] Comment on above: Performed By: #### D DIM, PTT, PT #### [facility] [address] [place] [address] Angelina Candice FOLATE 4.20 ng/mL Normal >=2.76 [facility] Comment on above: Performed By: #### D DIM, PTT, PT #### [facility] [address] [place], [place] [id number] Angelina Harvey BNPon 01-24-2019 Natriuretic peptide B (Bld) [Mass/Vol] 1065.0 pg/mL Critically high <=450.0 [facility] Comment on above: Result Comment: TEST REPEATED; CRITICAL VALUE VERIFIED Performed By: #### T SH, LIPA, TROP, CMP, BNP #### [facility] [address] [place], [place] [id number] Angelinavalerie Harvey CBC AUTO DIFFon 01-24-2019 Basophils (Bld) [#/Vol] 0.0 103/ul Normal 0.0-0.1 [facility] Comment on above: Performed By: #### C BC #### [facility] [address] [place], [place] [id number] Angelina Harvey Basophils/100 WBC (Bld) 0.5 % Normal 0.2-2.0 [facility] Comment on above: Performed By: #### C BC #### [facility] [address] [place] [address] Angelinavalerie Harvey Eosinophils (Bld) [#/Vol] 0.1 103/ul Normal 0.0-0.7 [facility] Comment on above: Performed By: #### C BC #### [facility] [address] [place] [address] Angelina Harvey Eosinophils/100 WBC (Bld) 1.7 % Normal 0.9-7.0 [facility] Comment on above: Performed By: #### C BC #### [facility] [address] [place], [place] [id number] Angelinavalerie Harvey Erythrocyte distribution width (RBC) [Ratio] 12.9 % Normal 11.0-15.0 [facility] Comment on above: Performed By: #### C BC #### [facility] [address] [place] [address] Angelinavalerie Harvey Hematocrit (Bld) [Volume fraction] 33.7 % Critically low 36.0-48.0 [facility] Comment on above: Performed By: #### C BC #### [facility] [address] [id number] Angelina Candice Hemoglobin (Bld) [Mass/Vol] 11.8 g/dL Critically low 12.0-16.0 [facility] Comment on above: Performed By: #### C BC #### [facility] [address] [id number] Angelina Candice IG # 0.02 10e3/ul Normal 0.00-0.03 [facility] Comment on above: Performed By: #### C BC #### [facility] [address] [place], [place] [address] Angelina Candice IG % 0.3 % Normal 0.0-0.5 [facility] Comment on above: Performed By: #### C BC #### [facility] [address] [place] [address] Angelina Candice Lymphocytes (Bld) [#/Vol] 1.1 103/ul Critically low 1.2-3.8 [facility] Comment on above: Performed By: #### C BC #### [facility] [address] [place], [place] [address] Angelina Candice Lymphocytes/100 WBC (Bld) 17.8 % Critically low 20.5-60.0 [facility] Comment on above: Performed By: #### C BC #### [facility] [address] [place], [place] [address] Angelina Candice MANUAL DIFF REQ NO Normal [facility] Comment on above: Performed By: #### C BC #### [facility] [address] [place], [place] [address] Angelina Candice MCH (RBC) [Entitic mass] 35.9 pg Critically high 26.7-34.0 [facility] Comment on above: Performed By: #### C BC #### [facility] [address] [place], [place] [address] Angelina Candice MCHC (RBC) [Mass/Vol] 35.0 g/dL Normal 29.9-35.2 [facility] Comment on above: Performed By: #### C BC #### [facility] [address] [place], [place] [address] Angelina Candice MCV (RBC) [Entitic vol] 102.4 fL Critically high 81.0-99.0 [facility] Comment on above: Performed By: #### C BC #### [facility] [address] [place], [place] [address] Angelina Candice Monocytes (Bld) [#/Vol] 0.3 103/ul Normal 0.3-0.8 [facility] Comment on above: Performed By: #### C BC #### [facility] [address] [place], [place] [address] Angelina Candice Monocytes/100 WBC (Bld) 5.3 % Normal 1.7-12.0 [facility] Comment on above: Performed By: #### C BC #### [facility] [address] [place] [address] Angelina Candice Neutrophils (Bld) [#/Vol] 4.4 103/ul Normal 1.4-6.5 [facility] Comment on above: Performed By: #### C BC #### [facility] [address] [place] [address] Angelina Candice Neutrophils/100 WBC (Bld) 74.4 % Normal 43.0-75.0 [facility] Comment on above: Performed By: #### C BC #### [facility] [address] [place] [address] Angelina Candice Platelet mean volume (Bld) [Entitic vol] 10.5 fL Normal 9.5-13.5 [facility] Comment on above: Performed By: #### C BC #### [facility] [address] [place], [place] [address] Angelina Candice Platelets (Bld) [#/Vol] 161 103/ul Normal 150-450 [facility] Comment on above: Performed By: #### C BC #### [facility] [address] [place] [address] Angelina Candice RBC (Bld) [#/Vol] 3.29 106/ul Critically low 4.20-5.40 [facility] Comment on above: Performed By: #### C BC #### [facility] [address] [place] [address] Angelina Harvey WBC (Bld) [#/Vol] 5.9 103/ul Normal 4.0-11.0 [facility] Comment on above: Performed By: #### C BC #### [facility] [address] [place] [address] Angelina Harvey CULTURE URINEon 01-24-2019 CULTURE URINE Culture Observations : Light growth of mixed genital jessica.No potential pathogens seen. Normal [facility] Comment on above: Performed By: #### D DIM, PTT, PT #### [facility] [address] [place] [address] Angelina Harvey D-DIMERon 01-24-2019 D-DIMER COMMENTS SEE BELOW Normal [facility] Comment on above: Result Comment: Incr eases in D-Dimer concentration observed with thromboembolic events can be variable due to localization, size, and age of the thrombus. Therefore, a thromboembolic event cannot be diagnosed with certainty on the basis of the reference range. D-Dimers may also be elevated for a variety of disorders including: advanced age, , coronary disease, cancer, liver disease, infection, inflammation, hematoma, DIC, trauma, post-surgery, diabetes, thrombolytic or anticoagulant therapy, stress, and generalizd hospitalization. Performed By: #### D DIM, PTT, PT #### [facility] [address] [place] [address] Angelina Harvey Fibrin D-dimer FEU IA (Bld) [Mass/Vol] 0.40 ug/mL Normal 0.19-0.50 [facility] Comment on above: Performed By: #### D DIM, PTT, PT #### [facility] [address] [place] [address] Angelina Harvey FREE T3on 01-24-2019 Free T3 [Mass/Vol] 1.68 pg/mL Critically low 2.77-5.27 [facility] Comment on above: Performed By: #### D DIM, PTT, PT #### [facility] [address] [place] [address] Angelina Candice LIPASEon 01-24-2019 Lipase [Catalytic activity/Vol] 123.0 U/L Normal 23.0-300.0 [facility] Comment on above: Performed By: #### T SH, LIPA, TROP, CMP, BNP #### [facility] [address] [place] [address] Angelina Candice LIPID PROFILEon 01-24-2019 CHOL-HDL RATIO NORM SEE BELOW Normal [facility] Comment on above: Result Comment: 3.3 - 4.4 LOW RISK 4.4 - 7.1 AVERAGE RISK 7.1 - 11.0 MODERATE RISK >11.0 HIGH RISK Performed By: #### D DIM, PTT, PT #### [facility] [address] [place] [address] Angelina Candice Cholesterol [Mass/Vol] 312 mg/dL Critically high <=200 [facility] Comment on above: Performed By: #### D DIM, PTT, PT #### [facility] [address] [place] [address] Angelina Candice Cholesterol in HDL [Mass/Vol] > or = 60 mg/dl - LOW CARDIOVASCULAR RISK <40 mg/dl - HIGH CARDIOVASCULAR RISK Normal [facility] Comment on above: Performed By: #### D DIM, PTT, PT #### [facility] [address] [place], [place] [id number] Angelina Candice Cholesterol in HDL [Mass/Vol] 21 mg/dL Normal [facility] Comment on above: Performed By: #### D DIM, PTT, PT #### [facility] [address] [place], [place] [id number] Angelina Candice Cholesterol in LDL [Mass/Vol] SEE BELOW Normal [facility] Comment on above: Result Comment: <100 mg/dl OPTIMAL 100 - 129 mg/dl NEAR OR ABOVE OPTIMAL 130 - 159 mg/dl BORDERLINE HIGH 160 - 189 mg/dl HIGH >190 mg/dl VERY HIGH Performed By: #### D DIM, PTT, PT #### [facility] [address] [place], [place] [address] Angelina Candice Cholesterol in LDL [Mass/Vol] 241.8 mg/dL Normal [facility] Comment on above: Performed By: #### D DIM, PTT, PT #### [facility] [address] [id number] Angelinavalerie Harvey Cholesterol.total/Chol esterol in HDL [Mass ratio] 14.9 {ratio} Normal [facility] Comment on above: Performed By: #### D DIM, PTT, PT #### [facility] [address] [address] Angelinavalerie Harvey Triglyceride [Mass/Vol] 246 mg/dL Critically high <=150 [facility] Comment on above: Performed By: #### D DIM, PTT, PT #### [facility] [address] [address] Angelinavalerie Harvey VLDL CALC 49.2 mg/dL Normal [facility] Comment on above: Performed By: #### D DIM, PTT, PT #### [facility] [address] [address] Angelina Harvey PROF 14(COMP METB)on 019 Albumin [Mass/Vol] 3.3 g/dL Critically low 3.5-5.0 [facility] Comment on above: Performed By: #### T SH, LIPA, TROP, CMP, BNP #### [facility] [address] [address] Angelinavalerie Harvey Albumin/Globulin [Mass ratio] 0.8 {ratio} Normal [facility] Comment on above: Performed By: #### T SH, LIPA, TROP, CMP, BNP #### [facility] [address] [address] Angelina Candice ALP [Catalytic activity/Vol] 330 U/L Critically high 38-126 [facility] Comment on above: Performed By: #### T SH, LIPA, TROP, CMP, BNP #### [facility] [address] [address] Angelina Candice ALT [Catalytic activity/Vol] 61 U/L Critically high 9-52 [facility] Comment on above: Performed By: #### T SH, LIPA, TROP, CMP, BNP #### [facility] [address] [address] Angelina Candice Anion gap [Moles/Vol] 10.6 mmol/L Normal [facility] Comment on above: Performed By: #### T SH, LIPA, TROP, CMP, BNP #### [facility] [address] [place] [address] Angelina Candice AST [Catalytic activity/Vol] 128 U/L Critically high 14-36 [facility] Comment on above: Performed By: #### T SH, LIPA, TROP, CMP, BNP #### [facility] [address] [place] [address] Angelina Candice Bilirubin Ql (U) 1.6 mg/dL Critically high 0.2-1.3 [facility] Comment on above: Performed By: #### T SH, LIPA, TROP, CMP, BNP #### [facility] [address] [place] [address] Angelina Candice Calcium [Mass/Vol] 8.3 mg/dL Critically low 8.4-10.2 [facility] Comment on above: Performed By: #### T SH, LIPA, TROP, CMP, BNP #### [facility] [address] [place] [address] Angelina Candice Chloride [Moles/Vol] 97 mmol/L Critically low 98-107 [facility] Comment on above: Performed By: #### T SH, LIPA, TROP, CMP, BNP #### [facility] [address] [place] [address] Angelina Candice CO2 [Moles/Vol] 32.2 mmol/L Critically high 22.0-30.0 [facility] Comment on above: Performed By: #### T SH, LIPA, TROP, CMP, BNP #### [facility] [address] [place] [address] Angelina Candice Creatinine [Mass/Vol] 1.03 mg/dL Normal 0.52-1.04 [facility] Comment on above: Performed By: #### T SH, LIPA, TROP, CMP, BNP #### [facility] [address] [place] [address] Angelina Candice EGFR-AF [place] >60 Normal >=60 [facility] Comment on above: Performed By: #### T SH, LIPA, TROP, CMP, BNP #### [facility] [address] [address] Angelina Candice EGFR-NON AF [place] 59 mL/min/1.73m2 Critically low >=60 [facility] Comment on above: Performed By: #### T SH, LIPA, TROP, CMP, BNP #### [facility] [address] [address] Angelina Candice Globulin (S) [Mass/Vol] 4.4 g/dL Normal [facility] Comment on above: Performed By: #### T SH, LIPA, TROP, CMP, BNP #### [facility] [address] [place] [address] Angelina Candice Glucose [Mass/Vol] 290 mg/dL Critically high 74-106 [facility] Comment on above: Performed By: #### T SH, LIPA, TROP, CMP, BNP #### [facility] [address] [place] [address] Angelina Candice Potassium [Moles/Vol] 2.8 mmol/L Critically low 3.4-5.0 [facility] Comment on above: Result Comment: TEST REPEATED; CRITICAL VALUE VERIFIED Performed By: #### T SH, LIPA, TROP, CMP, BNP #### [facility] [address] [place] [address] Angelina Candice Protein [Mass/Vol] 7.7 g/dL Normal 6.1-8.2 The [facility] Comment on above: Performed By: #### T SH, LIPA, TROP, CMP, BNP #### [facility] [address] [address] Angelina Candice Sodium [Moles/Vol] 138 mmol/L Normal 137-145 [facility] Comment on above: Performed By: #### T SH, LIPA, TROP, CMP, BNP #### [facility] [address] [address] Angelina Candice Urea nitrogen [Mass/Vol] 8.0 mg/dL Normal 7.0-17.0 [facility] Comment on above: Performed By: #### T SH, LIPA, TROP, CMP, BNP #### [facility] [address] [place] [address] Angelinavalerie Harvey Urea nitrogen/Creatinine [Mass ratio] 7.8 mg/mg Normal [facility] Comment on above: Performed By: #### T SH, LIPA, TROP, CMP, BNP #### [facility] [address] [place] [address] Angelina Candice PROTIMEon 01-24-2019 INR Coag (PPP) [Relative time] 1.25 {INR} Normal [facility] Comment on above: Performed By: #### D DIM, PTT, PT #### [facility] [address] [place] [address] Angelina Candice PT Coag (PPP) [Time] SEE BELOW Normal [facility] Comment on above: Result Comment: TAPAN RED INR: 2.0 - 3.0 CONDITIONS NOT LISTED BELOW 2.5 - 3.5 FOR PROSTHETIC HEART VALVE REPLACEMENT 2.5 - 3.5 RECURRENT THROMBOSIS Performed By: #### D DIM, PTT, PT #### [facility] [address] [place] [address] Angelina Candice PT Coag (PPP) [Time] PLEASE NOTE: NORMAL RANGE CHANGE 05-01-2014 DUE TO REAGENT LOT CHANGE Normal [facility] Comment on above: Performed By: #### D DIM, PTT, PT #### [facility] [address] [place] [address] Angelina Candice PT Coag (PPP) [Time] 12.9 s Critically high 9.0-11.6 [facility] Comment on above: Performed By: #### D DIM, PTT, PT #### [facility] [address] [place] [address] Angelinavalerie Harvey PTTon 01-24-2019 aPTT Coag (Bld) [Time] PLEASE NOTE: NORM AL RANGE CHANGE 07-08-2015 DUE TO REAGENT LOT CHANGE Normal [facility] Comment on above: Performed By: #### D DIM, PTT, PT #### [facility] [address] [place] [address] Angelina Harvey aPTT Coag (Bld) [Time] 26.8 s Normal 22.3-36.2 Th [facility] Comment on above: Performed By: #### D DIM, PTT, PT #### [facility] [address] [place], [place] [id number] Angelina Candice T4on 01-24-2019 T4 [Mass/Vol] 13.10 ug/dL Critically high 5.53-11.00 [facility] Comment on above: Performed By: #### T 4 #### [facility] [address] [place] [address] Angelina Harvey TROPONIN - Ion 01-24-2019 Troponin I.cardiac [Mass/Vol] SEE BELOW Normal [facility] Comment on above: Result Comment: <0.0 34 ng/ml NEGATIVE 0.034-0.119 INDETERMINATE 0.120 AMI CUT OFF Performed By: #### D DIM, PTT, PT #### [facility] [address] [place] [address] Angelinavalerie Harvey Troponin I.cardiac [Mass/Vol] 0.020 ng/mL Normal <=0.034 [facility] Comment on above: Performed By: #### D DIM, PTT, PT #### [facility] [address] [place], [place] [address] Angelina Candice Troponin I.cardiac [Mass/Vol] ng/mL Normal <=0.034 [facility] Comment on above: Performed By: #### T SH, LIPA, TROP, CMP, BNP #### [facility] [address] [place], [place] [address] Angelina Candice Troponin I.cardiac [Mass/Vol] SEE BELOW Normal [facility] Comment on above: Result Comment: <0.0 34 ng/ml NEGATIVE 0.034-0.119 INDETERMINATE 0.120 AMI CUT OFF Performed By: #### T SH, LIPA, TROP, CMP, BNP #### [facility] [address] [place] [address] Angelina Candice TSHon 01-24-2019 TSH Qn 14.367 uIU/mL Critically high 0.470-4.680 [facility] Comment on above: Performed By: #### T SH, LIPA, TROP, CMP, BNP #### [facility] [address] [address] Angelina Harvey TSH Qn SEE BELOW Normal [facility] Comment on above: Result Comment: <0.3 4 UIU/ml HYPERTHYROID 0.34-5.60 UIU/ml EUTHYROID >5.60 UIU/ml HYPOTHYROID Performed By: #### T SH, LIPA, TROP, CMP, BNP #### [facility] [address] [id number] Angelina Harvey XR CHEST 2 Von 01-24-2019 XR CHEST 2 V Patient: CIELO MCFARLANE Exam Date: 01/24/2019 : 1975 Gender:F Ordering : FREDDY SMALLS Admission #: [id number] Family : DR. ESTEBAN MARX M.D. Order #: [id number] CLICK HERE TO VIEW EXAM RADIOLOGY REPORT PROCEDURE: RADIOGRAPH CHEST 2 VIEWS COMPARISON: XR CHEST 2 V, 03/24/2017. INDICATIONS: Acute midsternal chest pain radiating into neck with chronic worsening cough FINDINGS: LUNGS: No significant pulmonary parenchymal abnormalities. VASCULATURE: No increased pulmonary vasculature. PLEURA: No pneumothorax, effusion, or pleural thickening. CARDIAC: No cardiomegaly or cardiac silhouette abnormality. MEDIASTINUM: No visible mass or adenopathy. BONES: No fracture or visible bone lesion. OTHER: Negative. CONCLUSION: No acute disease. Dictated by: Shantanu Mitchell M.D. on 01/25/2019 at 07:52 Approved by: Shantanu Mitchell M.D. on 01/25/2019 at 07:54 Normal [facility] ANAon 05-10-2017 MARC PATTERN SPECKLED Normal [facility] Comment on above: Performed By: #### 1 [id number] ####[facility] MARC SCREEN 1:80 Abnormal <1:40,1:40 [facility] Comment on above: Performed By: #### 1 0196 ####[facility] FERRITINon 05-10-2017 FERRITIN 280 ng/mL Normal 11-307 [facility] Comment on above: Performed By: #### 3 [id number], [id number] ####[facility] HEPATITIS A ANTIBODY [id number] 05-10-2017 HEP A ABS(TOTAL) Negative Normal Negative [facility] Comment on above: Result Comment: Perf ormed by [employer],[address] [place] [id number] [employer], Florian Odell MD - Lab. Director HEPATITIS B CORE ANTIBODYon 05-10-2017 HEP B CORE AB NONREACTIVE Normal NONREACTIVE [facility] Comment on above: Performed By: #### 3 [id number], [id number], [id number], [id number] ####[facility] HEPATITIS B SURFACE ANTIBODY QUANTon 05-10-2017 HEP B SURF AB 0.00 mIU/ml Normal [facility] Comment on above: Result Comment: [employer] RPRETATION:NONREACTIVE<8.00 mIU/mLINDETERMINATE8.00 - 12.00 mIU/mLREACTIVE>12 mIU/mL Performed By: #### 3 [id number], 94151, 99111, 10350 ####[facility] HEPATITIS B SURFACE ANTIGEN QUALon 05-10-2017 HEP B SURF AG QUAL NONREACTIVE Normal NONREACTIVE [facility] Comment on above: Performed By: #### 3 1399, 55286, 04604, 67811 ####[facility] HEPATITIS C ANTIBODYon 05-10 ANTI-HCV NONREACTIVE Normal NONREACTIVE [facility] Comment on above: Performed By: #### 3 1399, 89829, 11521, 80163 ####[facility]3000 [facility].[address] TIBC- INCLUDES IRONon 2016 FE SATURATION 25 % Normal 20-50 [facility] Comment on above: Performed By: #### 3 5515, 14176 ####[facility]3000 [facility] [place] [address], [facility] Iron 88 ug/dL Normal 50-212 [facility] Comment on above: Performed By: #### 3 5515, [id number] ####[facility]3000 [facility] [place] [address], [facility] TIBC 348 mcg/dL Normal 250-450 [facility] Comment on above: Performed By: #### 3 5515, 13360 ####[facility]3000 [facility].[address] UIBC 260 mcg/dL Normal 155-355 [facility] Comment on above: Performed By: #### 3 5515, 75366 ####[facility]3000 [facility].[address] Encounters Encounter Date Encounter Type Care Provider Facility Start: 05-11-2024 End: 05-11-2024 Telephone encounter Aubrey Cardona RN [facility] Comment on above: Pt. Ed ( Informed Co nsent) Start: 05-11-2024 Evaluation and management of inpatient CYNTHIA JONES Facility:[facility] Start: 01-03-2020 End: 01-05-2020 Patient encounter procedure LAUREN BOLANOS Facility:[facility] Start: 05-11-2019 End: 05-11-2019 Patient encounter procedure LAUREN BOLANOS Facility:[facility] Start: 01-24-2019 End: 01-26-2019 Patient encounter procedure LAUREN BOLANOS Facility:[facility] Start: 05-10-2017 End: 05-11-2017 Ambulatory VESTA BONILLA Facility:[facility] Start: 03-03-2017 End: 03-04-2017 Ambulatory DEFAULT PHYSICIAN Facility:[facility] Procedures Date Procedure Procedure Detail Performing Clinician Start: 05-11-2024 Antibody screen CYNTHIA JONES Comment on above: Order Comment: Speci men Type: VENOUS BLOOD SPECIMEN Ordering Facility: [facility] Address: [address] [place] [address] Performed By: #### 2 4344-4 #### [facility] CLIA [id number] [address] [place] [address] [id number] [address] [facility] Payers Date Payer Category Payer Private Health Insurance [facility] [employer] [id number] 2022-Present [phone] [address] [address] [place] [address] HMO [id number] 1975 Unknown [id number] 1976 Unknown [id number] 1976 Unknown [id number] 1959 Unknown [id number] Unknown Social History Date Type Detail Facility Tobacco smoking stat [facility] Tobacco smoking consumption unknown [facility] Start: 1975 Sex assigned at Not on file [facility] Gender identity Not on file [facility] inic Progress note 05-12-2024 Note Date & Type Note Facility 05-12-2024 Note HNO ID: [id number] Author: CARLO STEVENS RT(R) Service: Radiology Author Type: Technologist Type: Progress Notes Filed: 05/12/2024 18:16 Note Text: Radiology Service Progress Note PATIENT NAME: Cielo Mcfarlane DATE OF SERVICE: May 12, 2024 TIME: 6:16 PM PATIENT IDENTITY VERIFICATION COMPLETED USING TWO (2) IDENTIFIERS: Name and Date of confirmed by identification band. FALL SCREENING: Has the patient had 2 falls in the last year or 1 fall with injury or currently using an Ambulatory Assistive Device (Walker, Cane, Wheelchair, Crutches, etc.)? Inpatient: Screened on floor PATIENT GENDER DATA: Female. status: : No status: NO. PATIENT RELEVANT IMPLANT DATA REVIEWED: Yes PATIENT PRESENTS WITH AN IMPLANTABLE OR ATTACHED TAR HEATER OPERATOR: No RADIOLOGY DEPARTMENT: CT; Exam(s) Completed: Chest PERIPHERAL IV DATA: Not applicable SIGNED BY: Carlo Stevens RT(R)CT May 12, 2024 6:[address] [facility] Plan of care note 05-12-2024 Note Date & Type Note Facility 05-12-2024 Note HNO ID: [id number] Author: MARC QUINTANA MD Service: Hepatology Author Type: Fellow Type: Plan of Care Filed: 05/12/2024 07:54 Note Text: Cielo Mcfarlane is a 48 year old woman with PMH of HTN, Type II DM, HLD who was transferred from an outside hospital in the context of an unwitnessed fall at home, with evidence of acute on chronic liver failure for which hepatology has been consulted. Due to MELD 3.0 of 36 and ACLF gr II,we have started full evaluation for liver transplantation. Patient financially cleared with needs list below: Anesthesia consult (please call control desk) 2. ID consult (transplant specific ) 3. Nutrition (transplant specific) 4. Dermatology Clearance 5. Chest CT WO contrast 6. EGD 7. Space Operations Officer consult for PAP (ching stat) 8. Mammogram /US / Breast Exam (LINING REPAIRER can do) 9. Document Height Marc Quintana Hepatology Fellow [facility] Progress note 05-12-2024 Note Date & Type Note Facility 05-12-2024 Note HNO ID: [id number] Author: ANNE-MARIE MATIAS MD Service: Critical Care Author Type: Physician Type: Progress Notes Filed: 05/12/2024 09:27 Note Text: MICU PROGRESS NOTE SERVICE DATE: 05/12/2024 SERVICE TIME: 8:28 AM Admission Date: 05/11/2024 Hospital Day # 1 Assessment/Plan Indication for MICU Admission: ACLF Significant PMH/PSH: - Transaminitis - Hx of ETOH Abuse - Hx of Tobacco Abuse - Pre-diabetes Hospital Course: This is a 48 y/o old F with limited PMH including Transaminitis, ETOH Abuse, Tobacco Abuse, Pre-diabetes, who presented to OSH after found down at home, with symptoms of malaise, swelling x 1 week. 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, admitted 05/10, treated with transfusions, CTX, and NAC, transferred to [facility] MICU 05/11 for further care, possible OLT workup. Significant New Events Past 24 hrs: Admitted to MICU, Cr stabilized, remains HDS, on room air, with down-trend in HGB again requiring transfusion, without signs of GIB, underwent dx para 05/11 A/P of Major Active Problems: #ACLF #Cirrhosis #Transaminitis Assessment: Significant history of alcohol use 2020 labs show sig transaminitis Alcohol level negative on admission Acetaminophen level negative at OSH and here MELD 3.0: 36 at 05/11/2024 11:16 PM MELD-Na: 34 at 05/11/2024 11:16 PM Calculated from: Serum Creatinine: 2.01 mg/dL at 05/11/2024 11:16 PM Serum Sodium: 133 mmol/L at 05/11/2024 11:16 PM Total Bilirubin: 19.5 mg/dL at 05/11/2024 11:16 PM Serum Albumin: 3.6 g/dL (Using max of 3.5 g/dL) at 05/11/2024 11:16 PM INR(ratio): 2.2 at 05/11/2024 11:16 PM Age at listing (hypothetical): 48 years Sex: Female at 05/11/2024 11:16 PM 05/11 DX para: TNC 310, RBC < 2k, SAAG 1.9 05/11 RUQ with doppler: Cirrhotic liver morphology with findings compatible with portal hypertension. Small volume ascites. No intrahepatic biliary duct dilation. CBD: 0.4 cm at the hilum. Plan: - Trend CMP, INR - Avoid hepatotoxic meds - Continue NAC x 72 hours per hep - Consult to hepatology, appreciate recs - Pending hep labs (ordered) - OLT consults (ordered) - PET ordered - Trend para results - HE regimen as above #HE Mild, still oriented x 2, ammonia 43 Plan: - Miralax for BM goal 3 daily #LEAH Baseline SCr: unclear Likely in setting of pre renal, consider HRS as as well in setting of anemia and borderline hypotension S/p albumin 1g/kg 05/11 05/11 FEUrea 8.5% suggesting pre-renal Plan: - Trend BMP, Medically treat K+ - Consult Nephrology, appreciate recs - Avoid nephrotoxic agents - Monitor UOP #Leukocytosis Assessment: Slightly improved, TNC from para 310 CX w/o growth, UA with leuk est no WBC, 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 EF = 65 ? 5% RV normal in size. RV systolic function is normal. Plan: - Trend BP Barriers to transfer out of MICU: OLT Principal Problem: Acute on chronic alcoholic liver disease (HCC) Active Problems: Alcoholic cirrhosis (HCC) Hepatic encephalopathy (HCC) LEAH (acute kidney injury) (HCC) Encephalopathy Wound 05/11/24 1230 Pressure Injury Heel Left (Active) Properties Placement Date 05/11/24 Placement Time 1230 Location Heel Present on Original Admission Yes Primary Wound Type Pressure Injury Wound Location Orientation Left Assessments 05/11/2024 8:00 PM IF PATIENT HAS A PRESSURE INJURY: WHEN WAS IT ACQUIRED? (Document one time during this admission) Present on Admission during this Encounter Objective PHYSICAL EXAM PERFORMED: HEENT: Head is normocephalic atraumatic Oral Mucosa: Dry mucous membranes Eyes: PERRL, sclera with icterus Neck: Unremarkable; No masses, adenopathy or JVD Cardiovascular: Regular rhythm Respiratory: Clear to auscultation across the anterior Vent/Oxygen: Supplemental Oxygen: Yes. FiO2 3LNC Abdomen: Extremely protuberant, soft and mildly tender diffusely, without palpable masses Extremities: Edema- No Peripheral Pulses- Present all extremities Capillary Refill- less than 3 seconds Neurologic: Awake, oriented, Alert, Follows commands and Moving all extremities ICU Checklist Last Documented/Reviewed time: 05/12/2024 9:12 AM ICU Consent Complete?: Yes ICU Code Status History assess/Full code by default: No, active code status present (more content not included)... [facility] Telephone encounter Note 05-11-2024 Telephone Encounter - Aubrey Cardona RN - 05/11/2024 6:53 PM EDT Note Date & Type Note Facility 05-11-2024 Telephone encount er Note The following information has been provided/discussed with the patient/family during Shared Medical Appointment education class: Informed Consent for Organ Transplant Program Participation version March 02, 2023. SRTR information provided and questions answered. Informed patient to call nursing staff development coordinator with any questions. UNOS information regarding multiple listings for organ transplantation Evaluation process including presentation to selection committee and listing criteria Surgical procedure, including post-operative management, hospitalization, immunosuppressive medications and their side effects (including the risk for hypertension, diabetes, kidney problems and cancers) and emblem maker follow up after transplant. Possibility of recurrent disease discussed with patient. Patient was advised that if they choose not to proceed with transplant, alternative treatment will be provided Potential medical or psychosocial risks Discussed organ donor risk factors including potential risk of developing transmissible disease including but not limited to HIV, hepatitis B and C, malaria, and malignancy. Patient's right to decline such offers for transplant was also addressed Patient was provided with [facility] information sheet regarding transplantation of Hepatitis C viremic organs into Hepatitis C negative recipients. Risks and benefits of hepatitis C transplant and treatment were discussed. Patient was advised that he/she can refuse transplantation at any time prior to transplant without any penalty. Patient advised that transplants not performed in a medicare-approved hospital may negatively affect payment for medication coverage by Medicare Part B. Text/Email Communication Consent Cielo Mcfarlane has given a verbal authorization on May 11, 2024 for health information to be sent via unencrypted email or text messages. Cielo Mcfarlane has expressed understanding that unencrypted email (or text) messages and any attachments are at risk and could potentially be read by a third democrat when sent through the internet (or cellular phone) and desires to receive his protected health information by unencrypted email (or text). INFORMED CONSENT Cielo Mcfarlane Medical Record: [id number] Informed consent for Organ Transplant Program Participation Informed Consent for Organ Transplant Program Participation version March 02, 2023 was provided to patient. The risks, benefits, alternatives and anticipated outcomes of the Organ Transplant Program Participation, and tasks of the personnel to be involved were discussed with the patient. The patient consents to participation in the Organ Transplant Program. The patient was provided an opportunity to ask questions and have questions answered. Aubrey Cardona RN May 11, 2024 [facility] Note 05-11-2024 Telephone Encounter - Aubrey Cardona RN - 05/11/2024 6:53 PM EDT Note Date & Type Note Facility 05-11-2024 Miscellaneous Notes Formattin g of this note might be different from the original. The following information has been provided/discussed with the patient/family during Shared Medical Appointment education class: Informed Consent for Organ Transplant Program Participation version March 02, 2023. SRTR information provided and questions answered. Informed patient to call nursing staff development coordinator with any questions. UNOS information regarding multiple listings for organ transplantation Evaluation process including presentation to selection committee and listing criteria Surgical procedure, including post-operative management, hospitalization, immunosuppressive medications and their side effects (including the risk for hypertension, diabetes, kidney problems and cancers) and usp follow up after transplant. Possibility of recurrent disease discussed with patient. Patient was advised that if they choose not to proceed with transplant, alternative treatment will be provided Potential medical or psychosocial risks Discussed organ donor risk factors including potential risk of developing transmissible disease including but not limited to HIV, hepatitis B and C, malaria, and malignancy. Patient's right to decline such offers for transplant was also addressed Patient was provided with [facility] information sheet regarding transplantation of Hepatitis C viremic organs into Hepatitis C negative recipients. Risks and benefits of hepatitis C transplant and treatment were discussed. Patient was advised that he/she can refuse transplantation at any time prior to transplant without any penalty. Patient advised that transplants not performed in a medicare-approved hospital may negatively affect payment for medication coverage by Medicare Part B. Text/Email Communication Consent Cielo Mcfarlane has given a verbal authorization on May 11, 2024 for health information to be sent via unencrypted email or text messages. Cielo Mcfarlane has expressed understanding that unencrypted email (or text) messages and any attachments are at risk and could potentially be read by a third democrat when sent through the internet (or cellular phone) and desires to receive his protected health information by unencrypted email (or text). INFORMED CONSENT Cielo Mcfarlane Medical Record: [id number] Informed consent for Organ Transplant Program Participation Informed Consent for Organ Transplant Program Participation version March 02, 2023 was provided to patient. The risks, benefits, alternatives and anticipated outcomes of the Organ Transplant Program Participation, and tasks of the personnel to be involved were discussed with the patient. The patient consents to participation in the Organ Transplant Program. The patient was provided an opportunity to ask questions and have questions answered. Aubrey Cardona RN May 11, 2024 documented in this encounter [facility] Clinical Note 05-11-2024 Note Date & Type Note Facility 05-11-2024 Note SARS-COV-2 (AGENT OF COVID-19) RNA: Not detected INFLUENZA A RNA: Not detected INFLUENZA B RNA: Not detected RESPIRATORY SYNCYTIAL VIRUS (RSV) RNA: Not detected [facility] Comment on above: Performed By: #### 9 5941-1 ####[facility] [id number] [place] [address] [place] Summary Purpose Family History No Family History Records FoundNo Family History Records FoundNo Family History Records FoundNo Family History Records Found Advance Directives No Advanced Directives Records FoundNo Advanced Directives Records FoundNo Advanced Directives Records FoundNo Advanced Directives Records Found Additional Source Comments INFORMATION SOURCE (unrecogn ized section and content) DATE CREATED AUTHOR 02/07/2018 [facility] DATE CREATED AUTHOR AUTHOR'S ORGANIZ ATION 01/08/2020 [facility] DATE CREATED AUTHOR AUTHOR'S ORGANIZ ATION 01/01/2022 [facility] dical Specialist DATE CREATED AUTHOR AUTHOR'S ORGANIZ ATION 05/13/2024 [facility] Source Comments (unrecognize d section and content) In the event this informatio n is protected by the Federal Confidentiality of Alcohol and Drug Abuse Patient Records regulations: The Federal rules restrict any use of the information to criminally investigate or prosecute any alcohol or drug abuse patient.[facility] Reason for Visit (unrecogniz ed section and content) Reason Comments Pt. Ed ( Informed Consent) FOR RECORDS PERTAINING TO PATIENTS WHO ARE OR HAVE BEEN ENROLLED IN A CHEMICAL DEPENDENCY/SUBSTANCEABUSE PROGRAM, SOME INFORMATION MAY BE OMITTED. This clinical summary was aggregated from multiple sources. Caution should be exercised in using it in the provision of clinical care. This summary normalizes information from multiple sources, and as a consequence, information in this document may materially change the coding, format and clinical context of patient data. In addition, data may be omitted in some cases. CLINICAL DECISIONS SHOULD BE BASED ON THE PRIMARY CLINICAL RECORDS. [facility] [employer] [facility]. provides no warranty or guarantee of the accuracy or completeness of information in this document.
== END 2024-05-11 10:45 | disposition short-term general hospital (02) | DRG 441 ==
LOC: ER 19:16 → ICU 05-11 11:16
PROVIDERS: Emergency Medicine; Registered Nurse; Admitting Provider Internal Medicine; Emergency Provider Internal Medicine; PCP Family Medicine; Visit Provider Internal Medicine
DX: K72.01 Acute and subacute hepatic failure with coma (principal); K76.7 Hepatorenal syndrome; D68.9 Coagulation defect, unspecified; N17.9 Acute kidney failure, unspecified; N39.0 Urinary tract infection, site not specified; D72.823 Leukemoid reaction; D64.9 Anemia, unspecified; R60.1 Generalized edema; R79.89 Other specified abnormal findings of blood chemistry; B96.20 Unspecified Escherichia coli [E. coli] as the cause of diseases classified elsewhere
CPT/HCPCS: 36415; 36430; 51702; 71045; 74176; 80048; 80053; 80074; 80076; 80307; 80320; 80329; 81001; 82140; 82150; 83690; 83735; 83880; 84484; 84703; 85025; 85610; 85730; 86850; 86900; 86901; 86923; 87086; 87150; 87186; 93005; 94761; 99285; G0328; J0132; J1940; J2270; J2354; J3430; P9016